=== PATIENT | female | born 1950 | race African-American/Black ===

== ENCOUNTER 2016-07-20 06:05 | Inpatient (IN) ==
--- NOTE | 2016-07-20 06:44 | Emergency Department Note ---
Tj Spangler Hilary, am scribing for, and in the presence of, Scott Whitt MD 06: 39. Peri Spangler James D, MD, personally performed the services described in this documentation, ascribed by Naa Spencer in my presence, and it is both accurate and complete [id number] . Arrival - Arrival Chief Complaint: Shortness of Breath ED Nursing Triage Note: Pt arrives via ems stretcher from [facility] for further eval of shortness of breath. Pt was in resp distress per report from [facility] and was found to be hypertensive. Pt at time of triage is on 15L/NRB and states that she is feeling better. Denies any fever or pain at time of triage. Pt is a Dialysis pt and is scheduled for today. Mode of Arrival: Stretcher Limitations: No Limitations Source: Patient, RN Notes Reviewed Time Seen by Provider: 07/20/16 06:19 - History of Present Illness HPI Narrative: Pt is a 65 y/o black female brought into the ED via EMS from [facility] with c/o SOB. Pt was in respiratory distress per report from [facility] and was found to be hypertensive. Pt at the time of triage is on 15L/NRB. She confirms cough, spitting and SOB that worsens when she lies down but she denies chest pain or fever. Pt has a PMHx of CHF, HTN, NIDDM, GI Bleed, Renal Failure and Dialysis which she is scheduled for today. No other complaints or problems stated in the ED. Allergies/Adverse Reactions: Allergies Allergy/AdvReac Type Severity Reaction Status Date / Time ASHER Inhibitors Allergy Unknown/Unable Verified 07/23/15 20:00 to obtain aspirin Allergy Unknown/Unable Verified 07/23/15 20:00 to obtain ibuprofen Allergy Unknown/Unable Verified 07/23/15 20:00 to obtain IV DYE Allergy Severe ANAPHYLAXIS Uncoded 06/30/16 10:50 Home Medications: Home Medications Medication Instructions Recorded Confirmed Type Famotidine 20 mg PO BID 07/23/15 07/20/16 History hydrALAZINE TAB [Apresoline Tab] 50 mg PO BID 07/23/15 07/20/16 History Atorvastatin [Lipitor] 10 mg PO DAILY #90 tablet 09/30/15 07/20/16 Rx Carvedilol [Coreg] 12.5 mg PO BID #180 tablet NS 09/30/15 07/20/16 Rx Pantoprazole Tab [Protonix Tab] 40 mg PO DAILY #90 tablet NS 09/30/15 07/20/16 Rx Calcium Acetate 667 mg PO DIRECTED 06/30/16 07/20/16 History Cinacalcet HCl [Sensipar] 60 mg PO DAILY 06/30/16 07/20/16 History amLODIPine [Norvasc] 2.5 mg PO DIRECTED 06/30/16 07/20/16 History Review of System - Review of System 12 point system: reviewed and no additional remarkable complaints except as stated - Review of System Constitutional: Absent: fever Respiratory: Present: cough, respiratory distress (SOB) Gastrointestinal: Absent: nausea, vomiting Medical,Surgical,& Family Hx - Medical History Cardio: History of: CHF (diagnosed on admisssion), Hypertension Neurology: No history of: Brain Aneurysm, Cerebral Hemorrhage, Cerebrovascular Accident , Cerebral Palsy, Dementia, Migraine, Multiple Sclerosis, Parkinson's Disease, Peripheral Neuropathy, Seizures, TIA, Vertigo, Neurologocal Cancer HEENT: History of: Eye Problem (GLASS), HEENT Problems (chronic sinuse issues) Endocrine: History of: Diabetes Mellitus (NIDDM) Respiratory: No history of: Respiratory Problems Renal: History of: Dialysis (TUNNEL CATHETER RIGHT UPPER CHEST AV FISTULA LEFT ARM), Renal Failure Gastrointestinal: History of: GERD, Gastrointestinal Bleed (diagnosed on admisssion) Musculoskeletal: History of: Musculoskeletal Problems (ARTHRITIS) Hematology: History of: Anemia - Surgical History Cardiac Surgeries: Patient Denies: Cardiac Surgery Thoracic Surgeries: Patient denies;: Organ Transplant Neurologic Surgeries: Patient denies: Brain Aneurysm, Cerebral Hemorrhage, Neurologic Surgery Abdominal Surgeries: Surgical HX of: Colonoscopy, EGD Orthopedic Surgeries: Surgical HX of;: Orthopedic Surgery (right shoulder surgery 2012 rotary cuff with pins and screws) - Family History Family History: Reports;: Family Cancer (mother), Family Diabetes (brother), Family Heart Disease (sister dies of CHF), Family Hypertension, Family Stroke ( 2 brother) - Social History Smoking Status: Current every day smoker Frequency of Alcohol Use: None Type of Drug Use: None Exam Physical Examination: GENERAL: This is a well-nourished, well-developed in no apparent distress. VITAL SIGNS: Temperature: 98.4 Pulse: 112 Respiratory: 22 Blood Pressure: 170 /97 O2Sat: 97 HEENT: Head is normocephalic and atraumatic. Pupils are equally round and reactive to light. Extraocular movement are intact. Oropharynx is benign with moist mucous membranes. NECK: Neck is soft and supple without tenderness. There are no masses. There is no lymphadenopathy. LUNGS:Course breath sounds bilaterally. Chest rises symmetrically. There is minimal chest wall tenderness. CV: Heart is regular rate and rhythm without murmurs, rubs, or gallops. ABDOMEN: Abdomen is soft, non-tender to palpation. There are no abnormal masses palpated. There is no organomegaly. Bowel sounds are present and active. SKIN: Skin is warm and dry. No rash. EXTREMITIES: Patient has full range of motion without tenderness. There is no pedal edema. NEUROLOGIC: Awake, alert, and oriented x4. Cranial nerves II through XII are grossly intact. There are no motorsensory deficits. PSYCHIATRIC: Normal affect. Normal mood. Vital Signs: Vital Signs Temperature 98.4 F 07/20/16 06:05 Pulse Rate 106 H 07/20/16 06:28 Respiratory Rate 22 07/20/16 06:28 Blood Pressure 167/88 07/20/16 06:28 O2 Sat by Pulse Oximetry 93 L 07/20/16 06:28 Course - Consultations Consultation #1: Discussed with Dr. Kang. Time: 06:46 Consultation #2: Discussed with Dr. Alvarez. Patient will be admitted to their service Time: 06:46 Results - Labs Lab Results: I have reviewed the patients labs Labs: Lab performed at [facility] and reviewed by me Chemistry: Sodium 136, potassium 3.3, chloride 94, CO2 26, BUN 21, creatinine 6.4, glucose 157, BNP 42,506 Troponin 0.029 CBC: WBCs 14,200, hemoglobin 10.3, hematocrit 31.4, platelet count 317,000 - Diagnostic Findings Procedure: Chest x-ray: image reviewed by me Disposition Clinical Impression: Congestive heart failure, End stage renal disease on dialysis
--- NOTE | 2016-07-20 08:02 | XRay Report ---
Exam: XR chest 1V Date: 07/20/2016 6:34 AM Comparison: 07/20/2016 Indication: CHF Technique:[Portable AP sitting chest] Findings: Stable cardiomegaly and right IJ venous dialysis catheter. Persistent extensive parenchymal pathology in the lungs with small pleural effusions. Post operative findings in the left arm/breast with prior right shoulder replacement. Persistent prominent vasculature/stephen. Impression: Cardiomegaly with moderate pulmonary edema. The findings are more pronounced in the right lung where it is difficult to exclude superimposed pneumonia. Additional small indeterminate densities are noted and follow-up chest x-ray is recommended. PROCEDURE INTERPRETED AT [facility] DEPARTMENT OF RADIOLOGY Final Report Signed by: Dr. Shana Medellin
[2016-07-20] MEDS ORDERED: ACETAMINOPHEN 325 MG TABLET PO PRN (08:16)
[2016-07-20] MEDS ORDERED: guaiFENesin/DM ER 600-30 MG TABLET PO PRN (08:16)
[2016-07-20] MEDS ORDERED: DOCUSATE SODIUM 100 MG CAPSULE PO PRN (08:16)
[2016-07-20] MEDS ORDERED: NICOTINE 21 MG/24 HR PATCH TRANSDERM PRN (08:16)
[2016-07-20] MEDS ORDERED: diphenhydrAMINE CAP 25 MG CAPSULE PO PRN (08:16)
[2016-07-20] MEDS ORDERED: MORPHINE 2 MG/1 ML SYRINGE IV PRN (08:16)
--- NOTE | 2016-07-20 08:44 | Hospitalist History & Physical ---
Assessment and Plan - Time spent with patient Time spent with patient: Greater than 30 minutes (1) Hypertension Status: Acute Assessment and plan: 65-year-old -Beninese female with history of hypertension and end-stage renal disease on HD admitted by hospitalist service with shortness of breath. Patient is having sinus tachycardia with an abnormal EKG, troponins are pending. She is satting at 93% on 15 L facemask. Chest x-ray showing pulmonary edema versus pneumonia with crackles noted bilaterally. Patient is being admitted to CCU for further evaluation. Dr. Weiss has been consulted for dialysis which she should have today. We will also get Dr. Buchanan involved for the removal of right chest HD catheter. Dr. Hinkle has seen and examined patient and further recommendations to follow. Current Visit: Yes (2) Shortness of breath Status: Acute Current Visit: Yes (3) Pulmonary edema Status: Acute Current Visit: Yes (4) Congestive heart failure Status: Acute Current Visit: No (5) ESRD (end stage renal disease) on dialysis Problem details: No acute indication for HD at this time. Status: Acute Current Visit: No History of Present Illness Chief complaint: Shortness of breath History of present illness: Ms. Castellon is a 65 year old female with history of hypertension end-stage renal disease on hemodialysis presenting to the ED with acute shortness of breath. Patient states that started last night when she got up to go to the bathroom she just could not catch her breath. She denies headache, constipation , lower extremity edema, or chest pain. She did state she had some nausea with no vomiting prior to her ambulance arriving. She last dialyzed on Wednesday and Dr. Weiss is her store sales consultant. She dialyzes using a left arm fistula but she also has an old HD catheter in her right chest wall. Patient smokes 1 pack of cigarettes every [address] Buchanan wanted to get a heart doctor to look at her before he pulled the catheter. Right now she is on 15 L satting at 93% with conversational dyspnea. Patient's EKG is showing sinus tachycardia with possible left atrial enlargement, ST deviation and moderate T- wave abnormality, consider lateral ischemia. Troponin is pending. After discussion with the ED physician Dr. Whitt and Dr. Hinkle the attending hospitalist, it was agreed patient will be admitted for further evaluation. Home Medications Medication Instructions Recorded Confirmed Type Famotidine 20 mg PO BID 07/23/15 07/20/16 History hydrALAZINE TAB [Apresoline Tab] 50 mg PO BID 07/23/15 07/20/16 History Atorvastatin [Lipitor] 10 mg PO DAILY #90 tablet 09/30/15 07/20/16 Rx Carvedilol [Coreg] 12.5 mg PO BID #180 tablet NS 09/30/15 07/20/16 Rx Pantoprazole Tab [Protonix Tab] 40 mg PO DAILY #90 tablet NS 09/30/15 07/20/16 Rx Calcium Acetate 667 mg PO DIRECTED 06/30/16 07/20/16 History Cinacalcet HCl [Sensipar] 60 mg PO DAILY 06/30/16 07/20/16 History amLODIPine [Norvasc] 2.5 mg PO DIRECTED 06/30/16 07/20/16 History Allergies Allergy/AdvReac Type Severity Reaction Status Date / Time ASHER Inhibitors Allergy Unknown/Unable Verified 07/23/15 20:00 to obtain aspirin Allergy Unknown/Unable Verified 07/23/15 20:00 to obtain ibuprofen Allergy Unknown/Unable Verified 07/23/15 20:00 to obtain IV DYE Allergy Severe ANAPHYLAXIS Uncoded 06/30/16 10:50 Medical,Surgical,& Family Hx - Medical History Cardio: History of: CHF (diagnosed on admisssion), Hypertension Neurology: No history of: Brain Aneurysm, Cerebral Hemorrhage, Cerebrovascular Accident , Cerebral Palsy, Dementia, Migraine, Multiple Sclerosis, Parkinson's Disease, Peripheral Neuropathy, Seizures, TIA, Vertigo, Neurologocal Cancer HEENT: History of: Eye Problem (GLASS), HEENT Problems (chronic sinuse issues) Endocrine: History of: Diabetes Mellitus (NIDDM) Respiratory: No history of: Respiratory Problems Renal: History of: Dialysis (TUNNEL CATHETER RIGHT UPPER CHEST AV FISTULA LEFT ARM), Renal Failure Gastrointestinal: History of: GERD, Gastrointestinal Bleed (diagnosed on admisssion) Musculoskeletal: History of: Musculoskeletal Problems (ARTHRITIS) Hematology: History of: Anemia - Surgical History Cardiac Surgeries: Patient Denies: Cardiac Surgery Thoracic Surgeries: Patient denies;: Organ Transplant Neurologic Surgeries: Patient denies: Brain Aneurysm, Cerebral Hemorrhage, Neurologic Surgery Abdominal Surgeries: Surgical HX of: Colonoscopy, EGD Orthopedic Surgeries: Surgical HX of;: Orthopedic Surgery (right shoulder surgery 2012 rotary cuff with pins and screws) - Family History Family History: Reports;: Family Cancer (mother), Family Diabetes (brother), Family Heart Disease (sister dies of CHF), Family Hypertension, Family Stroke ( 2 brother) - Social History Smoking Status: Current every day smoker Frequency of Alcohol Use: Rarely Type of Drug Use: None Lives With:: Alone Functional capacity: independent ambulation Review of systems: A complete 10 system review of systems was obtained and pertinent positives and negatives per HPI Exam - Constitutional Exam: Constitutional System: Mild distress. No tremulousness. Head: Normocephalic, atraumatic. Ears, Nose and Throat System: No evidence of Otitis or Mastoiditis. No epistaxis or discharge Eyes System: Pupils equal, round, and reactive. Extraocular muscles intact. Neck: Supple, without adenopathy, No jugular venous distention. No thyromegaly, neck mass, or prior surgery apparent. Respiratory System: Chest crackles to auscultation. Cardiovascular System: Heart with tachycardia rate and rhythm. No murmur. GI System: Abdomen soft, nontender. Normo active bowel sounds present. Musculoskeletal System: limbs with no pedal edema. Full distal pulses. Neurological System: No discernable sensory deficit. No aphasia Psychiatric System: Conversation is rational Results - Labs Lab Results: I have reviewed the past 24 hour labs - Impressions EKG was sinus tachycardia, possible left atrial enlargement, ST deviation and moderate T-wave abnormality, consider lateral ischemia - Diagnostic Findings Procedure: Chest x-ray: report reviewed by me (Cardiomegaly with moderate pulmonary edema. More pronounced in the right lung was difficult to exclude superimposed pneumonia additional small indeterminate densities are noted in follow-up chest x-ray recommended)
[2016-07-20] MEDS ORDERED: SODIUM CHLORIDE 0.45% 1,000 ML IV SCH (08:46)
[2016-07-20] MEDS ORDERED: ONDANSETRON 4 MG/2 ML VIAL IV PRN (08:46)
[2016-07-20] MEDS ORDERED: ALBUTEROL 2.5 MG/3 ML NEB RESP TX PRN (08:46)
--- NOTE | 2016-07-20 08:46 | EKG Report ---
Stationary ECG Study [facility] ER Test Date: 07/20/2016 6:14:31 AM Pat Name: ROSEMARIE SPARKS Department: Room: 112 Gender: F Emergency Medicine Medical Director: GE : 1950 Requested by: Scott Zelaya Order Number: [id number] Reading MD: LISANDRO ORTIZ Intervals Daniels Rate: 110 P: 69 MS: 147 QRS: 71 QRSD: 82 T: 13 QT: 379 QTc: 444 Interpretive Statements SINUS TACHYCARDIA POSSIBLE LEFT ATRIAL ENLARGEMENT ST DEVIATION AND MODERATE T-WAVE ABNORMALITY Electronically Signed On 07-20-16 16:58:19 CDT by LISANDRO ORTIZ [email or web address]
[2016-07-20] MEDS ORDERED: PANTOPRAZOLE 40 MG TABLET PO SCH ×2 (09:00)
[2016-07-20] MEDS ORDERED: ATORVASTATIN 10 MG TABLET PO SCH (09:00)
[2016-07-20] MEDS ORDERED: ENOXAPARIN 30 MG/0.3 ML SYRINGE SUBCUT SCH (09:00)
[2016-07-20 10:41] LABS: CKMB % 4.3 %
[2016-07-20 10:44] LABS: Troponin I Only 2.01 NG/ML (0.00-0.045)
[2016-07-20] MEDS: CINACALCET 30 MG TABLET PO SCH (11:45)
[2016-07-20] MEDS: FAMOTIDINE 20 MG TABLET PO SCH ×2 (11:46→20:28)
[2016-07-20] MEDS: PANTOPRAZOLE 40 MG TABLET PO SCH (11:46)
[2016-07-20] MEDS: CARVEDILOL 12.5 MG TABLET PO SCH ×2 (11:47→20:28)
--- NOTE | 2016-07-20 12:14 | General Surgery Consult Note ---
Assessment and Plan (1) ESRD (end stage renal disease) on dialysis Problem details: No acute indication for HD at this time. Status: Acute Assessment and plan: Continue dialysis through left arm AV fistula. Will probably have to remove dialysis catheter at bedside under local given her current medical issues. Current Visit: No History of Present Illness Chief complaint: Consult to remove dialysis catheter History of present illness: Ms. Castellon is a 65 year old female admitted with shortness of breath and cardiac issues. She is dialyzing through her left arm AV fistula. There is been no problems with access. She has previously been seen for catheter removal but this was postponed until she was evaluated by cardiology. Home Medications Medication Instructions Recorded Confirmed Type Famotidine 20 mg PO BID 07/23/15 07/20/16 History hydrALAZINE TAB [Apresoline Tab] 50 mg PO BID 07/23/15 07/20/16 History Atorvastatin [Lipitor] 10 mg PO DAILY #90 tablet 09/30/15 07/20/16 Rx Carvedilol [Coreg] 12.5 mg PO BID #180 tablet NS 09/30/15 07/20/16 Rx Pantoprazole Tab [Protonix Tab] 40 mg PO DAILY #90 tablet NS 09/30/15 07/20/16 Rx Calcium Acetate 667 mg PO DIRECTED 06/30/16 07/20/16 History Cinacalcet HCl [Sensipar] 60 mg PO DAILY 06/30/16 07/20/16 History amLODIPine [Norvasc] 2.5 mg PO DIRECTED 06/30/16 07/20/16 History Allergies Allergy/AdvReac Type Severity Reaction Status Date / Time ASHER Inhibitors Allergy Unknown/Unable Verified 07/23/15 20:00 to obtain aspirin Allergy Unknown/Unable Verified 07/23/15 20:00 to obtain ibuprofen Allergy Unknown/Unable Verified 07/23/15 20:00 to obtain IV DYE Allergy Severe ANAPHYLAXIS Uncoded 06/30/16 10:50 Medical,Surgical,& Family Hx - Medical History Cardio: History of: CHF (diagnosed on admisssion), Hypertension Neurology: No history of: Brain Aneurysm, Cerebral Hemorrhage, Cerebrovascular Accident , Cerebral Palsy, Dementia, Migraine, Multiple Sclerosis, Parkinson's Disease, Peripheral Neuropathy, Seizures, TIA, Vertigo, Neurologocal Cancer HEENT: History of: Eye Problem (GLASS), HEENT Problems (chronic sinuse issues) Endocrine: History of: Diabetes Mellitus (NIDDM) Respiratory: No history of: Respiratory Problems Renal: History of: Dialysis (TUNNEL CATHETER RIGHT UPPER CHEST AV FISTULA LEFT ARM), Renal Failure Gastrointestinal: History of: GERD, Gastrointestinal Bleed (diagnosed on admisssion) Musculoskeletal: History of: Musculoskeletal Problems (ARTHRITIS) Hematology: History of: Anemia - Surgical History Cardiac Surgeries: Patient Denies: Cardiac Surgery Thoracic Surgeries: Patient denies;: Organ Transplant Neurologic Surgeries: Patient denies: Brain Aneurysm, Cerebral Hemorrhage, Neurologic Surgery Abdominal Surgeries: Surgical HX of: Colonoscopy, EGD Orthopedic Surgeries: Surgical HX of;: Orthopedic Surgery (right shoulder surgery 2012 rotary cuff with pins and screws) - Family History Family History: Reports;: Family Cancer (mother), Family Diabetes (brother), Family Heart Disease (sister dies of CHF), Family Hypertension, Family Stroke ( 2 brother) - Social History Smoking Status: Current every day smoker Frequency of Alcohol Use: Rarely Type of Drug Use: None 12 point system: reviewed and no additional remarkable complaints except as stated Exam - Constitutional Vitals: Period Temp Pulse Resp BP Sys/Reynolds Pulse Ox Last 24 Hr 96.9 F-97.2 F 111-143 20-38 149-218/90-116 88-97 General appearance: no acute distress - Head Head exam: Present: normocephalic - Neck Neck exam: Present: normal inspection - Cardiovascular Cardiovascular exam: Present: RRR - Extremities Exam Extremities exam: Present: other (Left arm AV fistula with good thrill) - Back Exam Back exam: Present: normal inspection - Neurological Exam Neurological exam: Present: alert, oriented X3 Speech: Present: normal - Skin Skin exam: Present: normal color
[2016-07-20] MEDS ORDERED: LIDOCAINE/PRILOCAINE CREAM 5 GM TUBE TOP ONE (12:54)
--- NOTE | 2016-07-20 13:02 | Nephrology Consult Note ---
History of Present Illness Chief complaint: Shortness of breath in a patient on dialysis History of present illness: Ms. Castellon is a 65 year old female who dialyzes on a regular basis in the local area on a Wednesday schedule. The patient presented to her local hospital with complaints of shortness of breath. She states that shortness of breath started about 2 nights prior to her admission. The patient denies noncompliance with her diet. The patient has had a previous episode similar to this about a year ago. The patient has an echocardiogram from a year ago that showed mild to moderate aortic insufficiency as well as an elevated pulmonary artery pressure of around 53 mmHg and some mild tricuspid regurgitation. Patient denies any chest pain. She does think she has been having some chills she denies any cough. ROS: Head - denies headaches ENT - denies sore throat Lymphatics - denies lymphadenopathy Hematology - denies bleeding problems Heart - denies chest pain Lungs -positive shortness of breath Abdomen - denies abdominal pain Musculoskeletal - denies arthritis Skin - denies rash Neurology - denies stroke General - denies fever PE: General: in moderate respiratory distress having to sit up straight to breathe Eyes: Pupils are round and reactive, conjunctivae are clear ENT: Nose is clear, O/P is benign Neck: Supple, no thyromegaly Lymphatics: No cervical, supraclavicular or axillary adenopathy Heart: Regular rate and rhythm, no edema Lungs: Reveal some rales and rhonchi heard worse on the right than the left, chest expansion symmetric Abdomen: Soft, normoactive bowel sounds, no hepatomegaly Musculoskeletal: No joint erythema or effusions or joint asymmetry Skin: Normal turgor, normal hydration, no rash Neuro/Psych: Alert and cooperative with fair insight Home Medications Medication Instructions Recorded Confirmed Type Famotidine 20 mg PO BID 07/23/15 07/20/16 History hydrALAZINE TAB [Apresoline Tab] 50 mg PO BID 07/23/15 07/20/16 History Atorvastatin [Lipitor] 10 mg PO DAILY #90 tablet 09/30/15 07/20/16 Rx Carvedilol [Coreg] 12.5 mg PO BID #180 tablet NS 09/30/15 07/20/16 Rx Pantoprazole Tab [Protonix Tab] 40 mg PO DAILY #90 tablet NS 09/30/15 07/20/16 Rx Calcium Acetate 667 mg PO DIRECTED 06/30/16 07/20/16 History Cinacalcet HCl [Sensipar] 60 mg PO DAILY 06/30/16 07/20/16 History amLODIPine [Norvasc] 2.5 mg PO DIRECTED 06/30/16 07/20/16 History Allergies Allergy/AdvReac Type Severity Reaction Status Date / Time ASHER Inhibitors Allergy Unknown/Unable Verified 07/23/15 20:00 to obtain aspirin Allergy Unknown/Unable Verified 07/23/15 20:00 to obtain ibuprofen Allergy Unknown/Unable Verified 07/23/15 20:00 to obtain IV DYE Allergy Severe ANAPHYLAXIS Uncoded 06/30/16 10:50 Medical,Surgical,& Family Hx - Medical History Cardio: History of: CHF (diagnosed on admisssion), Hypertension Neurology: No history of: Brain Aneurysm, Cerebral Hemorrhage, Cerebrovascular Accident , Cerebral Palsy, Dementia, Migraine, Multiple Sclerosis, Parkinson's Disease, Peripheral Neuropathy, Seizures, TIA, Vertigo, Neurologocal Cancer HEENT: History of: Eye Problem (GLASS), HEENT Problems (chronic sinuse issues) Endocrine: History of: Diabetes Mellitus (NIDDM) Respiratory: No history of: Respiratory Problems Renal: History of: Dialysis (TUNNEL CATHETER RIGHT UPPER CHEST AV FISTULA LEFT ARM), Renal Failure Gastrointestinal: History of: GERD, Gastrointestinal Bleed (diagnosed on admisssion) Musculoskeletal: History of: Musculoskeletal Problems (ARTHRITIS) Hematology: History of: Anemia - Surgical History Cardiac Surgeries: Patient Denies: Cardiac Surgery Thoracic Surgeries: Patient denies;: Organ Transplant Neurologic Surgeries: Patient denies: Brain Aneurysm, Cerebral Hemorrhage, Neurologic Surgery Abdominal Surgeries: Surgical HX of: Colonoscopy, EGD Orthopedic Surgeries: Surgical HX of;: Orthopedic Surgery (right shoulder surgery 2012 rotary cuff with pins and screws) - Family History Family History: Reports;: Family Cancer (mother), Family Diabetes (brother), Family Heart Disease (sister dies of CHF), Family Hypertension, Family Stroke ( 2 brother) - Social History Smoking Status: Current every day smoker Frequency of Alcohol Use: Rarely Type of Drug Use: None Exam - Vital Signs Vital signs: Period Temp Pulse Resp BP Sys/Reynolds Pulse Ox Last 24 Hr 96.9 F-97.2 F 111-143 20-38 149-218/90-116 88-97 Assessment and Plan (1) Congestive heart failure Status: Acute Assessment and plan: This patient has a history of mild to moderate aortic insufficiency as well as elevated pulmonary artery pressures and mild tricuspid regurgitation. Her ejection fraction is around 55% a year ago. Her troponin I is elevated and agree with the following a repeat level of this. It may be worth repeating her echocardiogram as well. Current Visit: Yes (2) End stage renal disease on dialysis Status: Acute Assessment and plan: We will plan on dialyzing the patient today with vigorous ultrafiltration as tolerated. Current Visit: Yes (3) Hypertension Status: Acute Assessment and plan: This should improve with dialysis and fluid removal Current Visit: Yes (4) Pulmonary edema Status: Acute Current Visit: Yes (5) Shortness of breath Status: Acute Current Visit: Yes (6) Secondary hyperparathyroidism Status: Acute Assessment and plan: We will continue her Sensipar and calcium based phosphate binder Current Visit: Yes
[2016-07-20] MEDS: ONDANSETRON 4 MG/2 ML VIAL IV PRN ×2 (13:29→20:32)
[2016-07-20] MEDS ORDERED: amLODIPine 2.5 MG TABLET PO SCH (15:30)
--- NOTE | 2016-07-20 16:36 | ECHO Report ---
oTma Castellon Exam Date: 07/20/2016 10:32 Referring Physician: Technologist: Amanda Bell Age: 65 Ht (in): 64 Wt (lb): 154 Gender: F Exam Location: [facility] Echo Indications: CHF, ESRD, HTN, SOB, Pul.edema BP: 149 / 110 HR: 130 Rhythm: Tachycardia Technical Quality: Good IMPRESSIONS Mild concentric left ventricular hypertrophy with diastolic dysfunction. Diffuse left ventricular hypokinesis. Left ventricular ejection fraction is estimated at 20-25 %. Normal right ventricular size. The right atrium is mildly enlarged. The left atrium is mildly enlarged. Mild mitral valve sclerosis. Mild-moderate mitral valve regurgitation. Aortic valve sclerosis without stenosis. Mild aortic valve regurgitation. Morphologically normal tricuspid valve. Severe tricuspid valve regurgitation. Tricuspid regurgitation velocities suggest a PAP of 59.9 mmHg + RAP. Pulmonic valve not well visualized. No pericardial effusion. Normal size aortic root and proximal ascending aorta. MEASUREMENTS (Male / Female) Normal Values 2D ECHO LV Diastolic Diameter PLAX 4.3 cm 4.2 - 5.9 / 3.9 - 5.3 cm LV Systolic Diameter PLAX 4.0 cm LV Fractional Shortening PLAX 6.7 % IVS Diastolic Thickness 1.1 cm 0.6 - 1.0 / 0.6 - 0.9 cm LVPW Diastolic Thickness 1.1 cm 0.6 - 1.0 / 0.6 - 0.9 cm RV Internal Dim ED PLAX 2.7 cm Aortic Root Diameter 2.6 cm LA Systolic Diameter LX 3.7 cm 3.0 - 4.0 / 2.7 - 3.8 cm DOPPLER TR Peak Velocity 387.0 cm/s TR Peak Gradient 59.9 mmHg FINDINGS Left Ventricle Mild concentric left ventricular hypertrophy with diastolic dysfunction. Diffuse left ventricular hypokinesis. Left ventricular ejection fraction is estimated at 20-25 %. Right Ventricle Normal right ventricular size. Right Atrium The right atrium is mildly enlarged. Left Atrium The left atrium is mildly enlarged. Mitral Valve Mild mitral valve sclerosis. Mild-moderate mitral valve regurgitation. Aortic Valve Aortic valve sclerosis without stenosis. Mild aortic valve regurgitation. Tricuspid Valve Morphologically normal tricuspid valve. Severe tricuspid valve regurgitation. Tricuspid regurgitation velocities suggest a PAP of 59.9 mmHg + RAP. Pulmonic Valve Pulmonic valve not well visualized. Pericardium No pericardial effusion. Aorta Normal size aortic root and proximal ascending aorta. Mauricio Segura MD (Electronically Signed) Final Date: 20 Jul 2016 16:35
[2016-07-20] MEDS ORDERED: ENOXAPARIN 60 MG/0.6 ML SYRINGE SUBCUT SCH (18:00)
[2016-07-20] MEDS: CALCIUM ACETATE 667 MG CAPSULE PO SCH (18:13)
[2016-07-21 01:16] LABS: Basophils % 0.3 % (0.0-0.8); Hematocrit 29.7 VOL% (35.7-47.0); Immature Granulocytes % 0.9 %; Lymphocytes # 1.2 10*3/uL (1.4-4.0); Lymphocytes % 11.3 % (21.3-54.2); Mean Corpuscular HGB Conc 33.7 GM/DL (32-36); Mean Corpuscular Hemoglobin 24 PG (27-34); Mean Corpuscular Volume 72.1 FL (87-102); Mean Platelet Volume 10.3 FL (9.6-12.0); Monocytes # 1.3 10*3/uL (0.11-0.8); Monocytes % 11.8 % (1.7-12.7); Neutrophils # 8.3 10*3/uL (1.4-7.4); Neutrophils % 75.7 % (38.7-73.9); Platelet Count 283 T/CUMM (130-400); Red Blood Count 4.12 MC/CUMM (3.8-5.5); Red Cell Distribution Width 18.6 % (9.3-17.3); White Blood Count 10.9 T/CUMM (4-12)
[2016-07-21 01:36] LABS: Calcium 7.6 MG/DL (8.5-10.1); Osmolality,Calculated 265.5 MOS/KG (273-304); Potassium 3.6 MMOL/L (3.5-5.1)
--- NOTE | 2016-07-21 06:56 | XRay Report ---
Exam: XR chest 1V portable Date: 07/21/2016 4:00 AM Indication: CHF Comparison: 07/20/2016 Technical: AP portable Findings: A right-sided dialysis catheter is present with the distal tip superior vena cava. Cardiomegaly is present. Improving aeration with decreasing alveolar interstitial edema in the basilar regions with some residual interstitial edema present. Tiny effusion present. A right total shoulder prosthesis is present. No pneumothorax. External cardiac leads oxygen tubing are present. Small granuloma right lung. Platelike atelectatic change left mid chest. Impression: 1. Cardiomegaly with stable appearance of the dialysis catheter 2. Improving interstitial alveolar edema bilaterally with incomplete resolution of acute pulmonary edema CHF changes 3. Right total shoulder prosthesis 4. Granuloma changes right lung PROCEDURE INTERPRETED AT [facility] DEPARTMENT OF RADIOLOGY Final Report Signed by: Dr. Jose Guadalupe Castle
[2016-07-21] MEDS: CINACALCET 30 MG TABLET PO SCH ×2 (08:06→09:13)
[2016-07-21] MEDS: CALCIUM ACETATE 667 MG CAPSULE PO SCH ×4 (08:06→16:58)
--- NOTE | 2016-07-21 08:13 | Cardiology Consult Note ---
<Yolanda Silverman E - Last Filed: 07/21/16 07:47> Assessment and Plan - Time spent with patient Time spent with patient: Greater than 30 minutes Time spent discussing smoking cessation with patient: 3 to 10 minutes (1) ACS (acute coronary syndrome) Status: Acute Assessment and plan: SEE PLAN OF CARE LISTED BELOW Current Visit: Yes (2) Hypertension Status: Chronic Assessment and plan: SEE PLAN OF CARE LISTED BELOW Current Visit: Yes (3) CHF (congestive heart failure), NYHA class III Status: Acute Assessment and plan: SEE PLAN OF CARE LISTED BELOW Current Visit: Yes Qualifiers: Congestive heart failure type: systolic Congestive heart failure chronicity : acute Qualified Code(s): I50.21 - Acute systolic (congestive) heart failure (4) Allergy to IVP dye Status: Chronic Assessment and plan: SEE PLAN OF CARE LISTED BELOW Current Visit: Yes (5) Cardiomyopathy Status: Acute Assessment and plan: SEE PLAN OF CARE LISTED BELOW Current Visit: Yes (6) Tobacco abuse Status: Chronic Assessment and plan: SEE PLAN OF CARE LISTED BELOW Current Visit: Yes (7) CKD (chronic kidney disease) stage 4, GFR 15-29 ml/min Status: Chronic Assessment and plan: SEE PLAN OF CARE LISTED BELOW Current Visit: No History of Present Illness - Data of Consult Patient: new to practice Consult date: 07/21/16 Requesting Physician: Stephanie Hinkle - Consult Narrative Reason for consult: SOB, elevated troponin 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 Ms. Castellon, 65BF, has never been seen Cardiology. She was scheduled to see Dr. Bruno end of July 2016 for preop clearance. Risk factors include: Hypertension, suspected dyslipidemia, sedentary lifestyle, tobaccoism and end- stage renal disease. Past medical history includes end-stage renal disease requiring hemodialysis, anemia. Patient was admitted July 20, 2016 with shortness of breath, tachycardia and an abnormal EKG. Chest x-ray revealed pulmonary edema versus pneumonia. Patient reports she has chronic shortness of breath which worsened the day of admission. She found that walking room to room required wrist with minimal exertion. She has been diuresis overnight, given supplemental oxygen and she is breathing better this morning. Denies chest pain, heaviness or tightness. Troponins have peaked at 4.53 in the setting of a creatinine of 4.5. EKG reveals abnormalities located in the lateral leads. Patient underwent echo which reveals EF 20-25%, mild to moderate MR, PAP 59.9 + RAP. Patient's prior echocardiogram, July 2015, reveals EF of 55%-60%. IVP DYE ALLERGY. ASSESSMENT/PLAN: 1. ACS - troponin is trending down at this point. I discussed with Dr. Segura possibility of cardiac catheterization. She still somewhat orthopneic and we will continue with diuresis. She underwent dialysis yesterday and 4000 ml was withdrawn. Also, this will give us an opportunity to treat her IVP dye allergy for 24 hours prior to proceeding. I will keep her n.p.o. after midnight tonight and schedule her for cardiac catheterization 0730. Will add nitroglycerin if her blood pressure will allow for such. Also, and lipid-lowering agent. Will coordinate with Dr. Tee. Patient may benefit from dialysis again today prior to proceeding with cath tomorrow which may assist with her orthopnea. 2. ACUTE CHF - acute CHF secondary to severely reduced LVEF (20%), [place] Heart Association Classification III. 3. CARDIOMYOPATHY - newly diagnosed cardiomyopathy. Will require cardiac catheterization for further delineation to etiology and treatment. 4. HYPERTENSION - adequately controlled. Currently tolerating beta blockade. 5. UNKNOWN LIPID STATUS - lipid profile this morning 6. IV DYE ALLERGY - premedicated according 7. ESRD - HD managed by Dr. Tee. May need HD today as we prepare for LHC in the morning in order to better manage orthopnea. 8. TOBACCO ABUSE - greater than 5 minutes was spent today discussing the merits of tobacco cessation per CC: Stephanie Hinkle MD - Home Medications and Allergies Home Medications: Home Medications Medication Instructions Recorded Confirmed Type Famotidine 20 mg PO BID 07/23/15 07/20/16 History hydrALAZINE TAB [Apresoline Tab] 50 mg PO BID 07/23/15 07/20/16 History Atorvastatin [Lipitor] 10 mg PO DAILY #90 tablet 09/30/15 07/20/16 Rx Carvedilol [Coreg] 12.5 mg PO BID #180 tablet NS 09/30/15 07/20/16 Rx Pantoprazole Tab [Protonix Tab] 40 mg PO DAILY #90 tablet NS 09/30/15 07/20/16 Rx Calcium Acetate 667 mg PO TID W/MEALS 06/30/16 07/20/16 History Cinacalcet HCl [Sensipar] 60 mg PO DAILY 06/30/16 07/20/16 History amLODIPine [Norvasc] 2.5 mg PO DAILY 06/30/16 07/20/16 History Allergies/Adverse Reactions: Allergies Allergy/AdvReac Type Severity Reaction Status Date / Time ASHER Inhibitors Allergy Unknown/Unable Verified 07/23/15 20:00 to obtain aspirin Allergy Unknown/Unable Verified 07/23/15 20:00 to obtain ibuprofen Allergy Unknown/Unable Verified 07/23/15 20:00 to obtain IV DYE Allergy Severe ANAPHYLAXIS Uncoded 06/30/16 10:50 Review of systems: REVIEW OF SYSTEMS: - Constitutional Constitutional: Present: Fatigue. Absent: syncope, anorexia, night sweats - EENT Eyes: Absent: blurry vision, loss of vision, diplopia Ears: Absent: decreased hearing, ear pain, ear discharge - Cardiovascular Cardiovascular: Denies: chest pain with exertion, edema, palpitations. Absent: chest pain with deep breath, claudication - Respiratory Respiratory: Present: WILSON, cough. Absent: wheezing, hemoptysis, change in phlegm color - Gastrointestinal Gastrointestinal: Denies: constipation. Absent: abdominal pain, hematemesis, hematochezia, melena, change in bowel habits, nausea - Genitourinary Genitourinary: Absent: difficulty urinating, dysuria, urinary hesitancy, flank pain - Musculoskeletal Musculoskeletal: Present: back pain Absent: joint swelling, muscle cramps, muscle weakness - Neurological Neurological: Present: normal gait without frequent falls. Absent: dizziness, hemiparesis - Psychiatric Psychiatric: Absent: anxiety, depression, difficulty concentrating - Endocrine Endocrine: Present: fatigue. Absent: cold intolerance, heat intolerance, polyuria, polyphagia, polydipsia - Hematologic/Lymphatic Hematologic/Lymphatic: Present: easy bruising. Absent: easy bleeding -Integumentary Integumentary: Absent: lesions, rashes, skin breakdown Medical,Surgical,& Family Hx - Medical History Cardio: History of: CHF (diagnosed on admisssion), Hypertension No history of: CAD, [place] Neurology: No history of: Brain Aneurysm, Cerebral Hemorrhage, Cerebrovascular Accident , Cerebral Palsy, Dementia, Migraine, Multiple Sclerosis, Parkinson's Disease, Peripheral Neuropathy, Seizures, TIA, Vertigo, Neurologocal Cancer HEENT: History of: Eye Problem (GLASS), HEENT Problems (chronic sinuse issues) Respiratory: No history of: Respiratory Problems Renal: History of: Dialysis (TUNNEL CATHETER RIGHT UPPER CHEST AV FISTULA LEFT ARM), Renal Failure Gastrointestinal: History of: GERD, Gastrointestinal Bleed (diagnosed on admisssion) Musculoskeletal: History of: Musculoskeletal Problems (ARTHRITIS) Hematology: History of: Anemia - Surgical History Cardiac Surgeries: Patient Denies: Cardiac Surgery Thoracic Surgeries: Patient denies;: Organ Transplant Neurologic Surgeries: Patient denies: Brain Aneurysm, Cerebral Hemorrhage, Neurologic Surgery Abdominal Surgeries: Surgical HX of: Colonoscopy, EGD Orthopedic Surgeries: Surgical HX of;: Orthopedic Surgery (right shoulder surgery 2012 rotary cuff with pins and screws) - Family History Family History: Reports;: Family Cancer (mother), Family Diabetes (brother), Family Heart Disease (sister dies of CHF), Family Hypertension, Family Stroke ( 2 brother) - Social History Smoking Status: Current every day smoker Have you smoked in the last 12 months: Yes Time spent discussing smoking cessation with patient: 3 to 10 minutes Frequency of Alcohol Use: Rarely Type of Drug Use: None Physical Examination Vital Signs Temp Pulse Resp BP Pulse Ox 98.4 F 112 H 22 170/97 97 07/20/16 06:05 07/20/16 06:05 07/20/16 06:05 07/20/16 06:05 07/20/16 06:05 General: [Appears well with no apparent distress.] [Pleasant and cooperative. ] [Appears comfortable.] HEENT: [Bilateral arcus noted, normocephalic, atraumatic. Mucous membranes moist. No jaundice noted. Conjunctiva moist and clear, sclerae anicteric] Neck: 4-6 cm JVD to jaw. No thyromegaly or lymphadenopathy noted. No carotid bruit appreciated Cardiac: [Regular rate and rhythm.] [Soft II/ HSM heard best at 5ICS left. Lungs: [Clear to auscultation without accessory muscle use to assist the respiratory pattern.] Using oxygen via nasal cannula. Abdomen: Soft, bowel sounds normoactive. Nontender and nondistended. No abdominal bruit or thrill noted. No masses noted. Musculoskeletal: No fluid collection. Decreased range of motion is noted. Extremities: No clubbing, cyanosis noted. [ No edema noted.] Upper extremity pulses 2+. Lower extremity pulses 2+. Capillary refill less than 3 seconds. Skin: Skin changes noted to bilateral lower extremities. No other unusual lesions or rashes. No skin breakdown appreciated. Neuro: Awake, alert and oriented 3. Moves all extremities well without hemiparesis or paralysis. No essential tremor is appreciated. Result/EKG - Labs CBC & BMP: 07/21/16 01:01 07/21/16 01:01 Lab Results: I have reviewed the past 24 hour labs Labs: Laboratory Results - last 24 hr 07/20/16 07/20/16 07/20/16 09:56 09:56 14:09 WBC RBC Hgb Hct MCV MCH MCHC RDW Plt Count MPV Neut % (Auto) Lymph % (Auto) [place] % (Auto) Eos % (Auto) Baso % (Auto) Neut # (Auto) Lymph # (Auto) [place] # (Auto) Eos # (Auto) Baso # (Auto) Immature Gran % Nucleated RBC % Immature Gran # Nucleated RBCs # Sodium Potassium Chloride Carbon Dioxide Anion Gap BUN Creatinine GFR Calculation BUN/Creatinine Ratio Glucose Calculated Osmolality Calcium Total Creatine Kinase 212 H CK-MB (CK-2) 9.2 H CK and CKMB Interp 4.3 Troponin I 2.010 H 3.970 H D B-Natriuretic Peptide 3804 H 07/20/16 07/21/16 07/21/16 17:56 01:01 01:01 WBC 10.9 RBC 4.12 Hgb 10.0 L Hct 29.7 L MCV 72.1 L MCH 24 L MCHC 33.7 RDW 18.6 H Plt Count 283 MPV 10.3 Neut % (Auto) 75.7 H Lymph % (Auto) 11.3 L [place] % (Auto) 11.8 Eos % (Auto) 0.0 Baso % (Auto) 0.3 Neut # (Auto) 8.3 H Lymph # (Auto) 1.2 L [place] # (Auto) 1.3 H Eos # (Auto) 0.0 Baso # (Auto) 0.0 Immature Gran % 0.9 Nucleated RBC % 0.0 Immature Gran # 0.10 Nucleated RBCs # 0.00 Sodium Potassium Chloride Carbon Dioxide Anion Gap BUN Creatinine GFR Calculation BUN/Creatinine Ratio Glucose Calculated Osmolality Calcium Total Creatine Kinase CK-MB (CK-2) CK and CKMB Interp Troponin I 4.530 H 3.470 H D B-Natriuretic Peptide 07/21/16 01:01 WBC RBC Hgb Hct MCV MCH MCHC RDW Plt Count MPV Neut % (Auto) Lymph % (Auto) [place] % (Auto) Eos % (Auto) Baso % (Auto) Neut # (Auto) Lymph # (Auto) [place] # (Auto) Eos # (Auto) Baso # (Auto) Immature Gran % Nucleated RBC % Immature Gran # Nucleated RBCs # Sodium 132 L Potassium 3.6 Chloride 93 L Carbon Dioxide 24 Anion Gap 18.6 H BUN 18 Creatinine 4.50 H GFR Calculation 11 BUN/Creatinine Ratio 4.00 L Glucose 105 Calculated Osmolality 265.5 L Calcium 7.6 L Total Creatine Kinase CK-MB (CK-2) CK and CKMB Interp Troponin I B-Natriuretic Peptide - Diagnostic Findings Procedure: Chest x-ray: report reviewed by me, Ultrasound: report reviewed by me - EKG EKG results: interpreted by me EKG shows: sinus rhythm (Echo) <Mauricio Segura - Last Filed: 07/21/16 12:31> History of Present Illness - Consult Narrative History of present illness: Ms. Castellon is a 65 year old female she has had worsening LV function with no real change in her EKG and our plan is going to be to pursue cardiac catheterization for her acute coronary syndrome. She is clinically stable and I think given her dye allergy it is appropriate to wait 12-24 hours prior to proceeding. CC: Stephanie Hinkle MD Physical Examination Vital Signs Temp Pulse Resp BP Pulse Ox 98.4 F 112 H 22 170/97 97 07/20/16 06:05 07/20/16 06:05 07/20/16 06:05 07/20/16 06:05 07/20/16 06:05 Result/EKG - Labs CBC & BMP: 07/21/16 01:01 07/21/16 01:01 Labs: Laboratory Results - last 24 hr 07/20/16 07/20/16 07/21/16 14:09 17:56 01:01 WBC RBC Hgb Hct MCV MCH MCHC RDW Plt Count MPV Neut % (Auto) Lymph % (Auto) [place] % (Auto) Eos % (Auto) Baso % (Auto) Neut # (Auto) Lymph # (Auto) [place] # (Auto) Eos # (Auto) Baso # (Auto) Immature Gran % Nucleated RBC % Immature Gran # Nucleated RBCs # INR PT Patient/Control Mix Circ Anticoag PTT Sodium Potassium Chloride Carbon Dioxide Anion Gap BUN Creatinine GFR Calculation BUN/Creatinine Ratio Glucose Calculated Osmolality Calcium Troponin I 3.970 H D 4.530 H 3.470 H D Triglycerides Cholesterol LDL Cholesterol VLDL Cholesterol HDL Cholesterol Heart Disease Risk Ratio 07/21/16 07/21/16 07/21/16 01:01 01:01 08:11 WBC 10.9 RBC 4.12 Hgb 10.0 L Hct 29.7 L MCV 72.1 L MCH 24 L MCHC 33.7 RDW 18.6 H Plt Count 283 MPV 10.3 Neut % (Auto) 75.7 H Lymph % (Auto) 11.3 L [place] % (Auto) 11.8 Eos % (Auto) 0.0 Baso % (Auto) 0.3 Neut # (Auto) 8.3 H Lymph # (Auto) 1.2 L [place] # (Auto) 1.3 H Eos # (Auto) 0.0 Baso # (Auto) 0.0 Immature Gran % 0.9 Nucleated RBC % 0.0 Immature Gran # 0.10 Nucleated RBCs # 0.00 INR 1.1 PT Patient/Control Mix 12.0 Circ Anticoag PTT 39.6 Sodium 132 L Potassium 3.6 Chloride 93 L Carbon Dioxide 24 Anion Gap 18.6 H BUN 18 Creatinine 4.50 H GFR Calculation 11 BUN/Creatinine Ratio 4.00 L Glucose 105 Calculated Osmolality 265.5 L Calcium 7.6 L Troponin I Triglycerides Cholesterol LDL Cholesterol VLDL Cholesterol HDL Cholesterol Heart Disease Risk Ratio 07/21/16 08:11 WBC RBC Hgb Hct MCV MCH MCHC RDW Plt Count MPV Neut % (Auto) Lymph % (Auto) [place] % (Auto) Eos % (Auto) Baso % (Auto) Neut # (Auto) Lymph # (Auto) [place] # (Auto) Eos # (Auto) Baso # (Auto) Immature Gran % Nucleated RBC % Immature Gran # Nucleated RBCs # INR PT Patient/Control Mix Circ Anticoag PTT Sodium Potassium Chloride Carbon Dioxide Anion Gap BUN Creatinine GFR Calculation BUN/Creatinine Ratio Glucose Calculated Osmolality Calcium Troponin I Triglycerides 98 Cholesterol 198 LDL Cholesterol 66.0 VLDL Cholesterol 19.6 HDL Cholesterol 110 H Heart Disease Risk Ratio 1.80
[2016-07-21] MEDS ORDERED: POTASSIUM CHLORIDE RIDER 10 MEQ in PREMIX 1 EACH IV PRN ×2 (08:29→16:18)
[2016-07-21] MEDS ORDERED: MAGNESIUM SULF RIDER 2 GM in PREMIX 1 EACH IV PRN ×2 (08:29→16:18)
[2016-07-21] MEDS ORDERED: DIAZEPAM 5 MG TABLET PO ONE (08:29)
[2016-07-21 08:30] LABS: INR 1.1
[2016-07-21 08:36] LABS: Partial Thromboplastin Time 39.6 SECS (0-40)
[2016-07-21 08:48] LABS: Risk Ratio 1.8; VLDL CHOLESTEROL 19.6 MG/DL
--- NOTE | 2016-07-21 08:50 | EKG Report ---
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
[2016-07-21] MEDS ORDERED: FAMOTIDINE 20 MG TABLET PO SCH (09:00)
--- NOTE | 2016-07-21 09:05 | Hospitalist Progress Note ---
Assessment and Plan (1) Acute respiratory failure Status: Resolved Assessment and plan: 1)acute hypoxic resp failure due to acute systolic heart failure from newly diagnosed cardiomyopathy, and acute coronary syndrome- her hypoxia is improved after dialysis and her CXR and exam are better. Because she has had mild NSTEMI and a dramatic decrease in EF on current echo, cardiology plans cath tomorrow. She will have steroids and benadryl and pepcid today for her IV dye allergy. Her BP is 107 this morning, and her meds have been altered, including removing her NTP. Since she is orthopneic we are hoping she can be dialyzed again today in preparation for cath tomorrow. LDL is 66, HDL 123. counseled to stop smoking. Now on lovenox, lipitor, imdur, coreg. 2)ESRD- HD per Dr Tee. 3)dispo- improved. Transfer to tele today. Current Visit: No (2) End stage renal disease on dialysis Status: Acute Current Visit: Yes (3) Pulmonary edema Status: Acute Current Visit: Yes (4) ACS (acute coronary syndrome) Status: Acute Current Visit: Yes (5) CHF (congestive heart failure), NYHA class III Status: Acute Current Visit: Yes Qualifiers: Congestive heart failure type: systolic Congestive heart failure chronicity : acute Qualified Code(s): I50.21 - Acute systolic (congestive) heart failure (6) Cardiomyopathy Status: Acute Current Visit: Yes (7) Tobacco abuse Status: Chronic Current Visit: Yes Hospitalist: Subjective Interval history: Ms Castellon is feeling so much better this morning. She was changed to 2LNC yesterday after dialysis and has been breathing comfortably, though she remains a little orthopneic. She has had no chest pain. She is eating well. She says this all started quickly in the evening Wednesday after a good day with trips to visit family. Exam - Constitutional Vitals: Period Temp Pulse Resp BP Sys/Reynolds Pulse Ox Last 24 Hr 97.2 F-99.2 F 79-143 16-38 91-215/44-115 88-100 General appearance: normal weight, no acute distress - Head Head exam: Present: normocephalic, atraumatic - Eye Eye exam: Present: EOMI. Absent: scleral icterus - Respiratory Respiratory exam: Present: rales (almost gone, now at bases) - Cardiovascular Cardiovascular exam: Present: regular rate and rhythm - GI/Abdominal GI/Abdominal exam: Present: normal bowel sounds, soft. Absent: tenderness - Extremities Exam Extremities exam: Absent: edema - Neurological Exam Neurological exam: Present: alert, oriented X3 Results - Labs CBC & BMP: 07/21/16 01:01 07/21/16 01:01 Lab Results: I have reviewed the past 24 hour labs
[2016-07-21] MEDS: diphenhydrAMINE CAP 50 MG CAPSULE PO SCH ×3 (09:07→18:30)
[2016-07-21] MEDS: PANTOPRAZOLE 40 MG TABLET PO SCH (09:08)
[2016-07-21] MEDS: CARVEDILOL 3.125 MG TABLET PO SCH ×2 (09:08→21:41)
[2016-07-21] MEDS: ISOSORBIDE MONONITRATE 30 MG TABLET PO SCH (09:09)
[2016-07-21] MEDS: FAMOTIDINE 20 MG TABLET PO SCH ×2 (09:09→21:41)
[2016-07-21] MEDS: methylPREDNISolone SOD SUC 125 MG/2 ML VIAL IV SCH ×3 (09:13→21:40)
--- NOTE | 2016-07-21 10:19 | Nephrology Progress Note ---
Nephrology - PN: Subj Interval history: Patient is feeling better she denies shortness of breath this morning. Review of systems GI she did not eat any breakfast she states she has decreased appetite. Physical exam general patient is in no acute distress, she has no pitting edema Assessment/plan 1. Congestive heart failure-patient seems much improved today her chest x-ray shows improved aeration 2. End-stage renal disease-patient was dialyzed yesterday we will plan on hemodialysis tomorrow 3. Hypertension this is controlled 4. Secondary hyperparathyroidism we will continue her binders 5. Acute coronary syndrome -patient's for heart cath tomorrow Exam (PN)-Nephrology - Vital Signs Vital signs: Period Temp Pulse Resp BP Sys/Reynolds Pulse Ox Last 24 Hr 97.2 F-99.2 F 79-130 16-38 91-178/44-110 88-100 - Lab 07/21/16 01:01 07/21/16 01:01 Most recent lab results Calcium 7.6 MG/DL (8.5-10.1) L 07/21/16 01:01 Assessment and Plan (1) Congestive heart failure Status: Acute Assessment and plan: This patient has a history of mild to moderate aortic insufficiency as well as elevated pulmonary artery pressures and mild tricuspid regurgitation. Her ejection fraction is around 55% a year ago. Her troponin I is elevated and agree with the following a repeat level of this. It may be worth repeating her echocardiogram as well. Current Visit: Yes (2) End stage renal disease on dialysis Status: Acute Assessment and plan: We will plan on dialyzing the patient today with vigorous ultrafiltration as tolerated. Current Visit: Yes (3) Hypertension Status: Acute Assessment and plan: This should improve with dialysis and fluid removal Current Visit: Yes (4) Pulmonary edema Status: Acute Current Visit: Yes (5) Shortness of breath Status: Acute Current Visit: Yes (6) Secondary hyperparathyroidism Status: Acute Assessment and plan: We will continue her Sensipar and calcium based phosphate binder Current Visit: Yes
--- NOTE | 2016-07-21 16:18 | History and Physical Update ---
Sedation H&P Update - History and Physical H&P was reviewed, the patient examined and there: are no changes in the patients condition since last H&P was completed. - Dictation Physical: refer to H&P completed by admitting physician - Physical Exam Mental Status: alert and oriented Heart: regular rate and rhythm Lung: clear to auscultation Abdomen: within normal limits Vitals: within normal limits - Sedation Plan for Sedation: moderate Patient Consent: Procedure disscussed with patient and patinet has consented., Risks and benefits were discussed with patient,including infection,, bleeding, injury to surrounding structures, seizure, temporary nerve, Patient understands and accepts potential risks/benefits and agrees to, proceed. ASA Class: II Airway Assessment: Class II: Soft palate, uvula, fauces visible
[2016-07-21] MEDS: ENOXAPARIN 30 MG/0.3 ML SYRINGE SUBCUT SCH (18:30)
[2016-07-21] MEDS: ATORVASTATIN 20 MG TABLET PO SCH (21:41)
[2016-07-22] MEDS: methylPREDNISolone SOD SUC 125 MG/2 ML VIAL IV SCH ×5 (02:09→21:25)
[2016-07-22] MEDS: diphenhydrAMINE CAP 50 MG CAPSULE PO SCH ×4 (02:09→17:23)
[2016-07-22] MEDS ORDERED: DIAZEPAM 5 MG TABLET PO ONE (06:00)
[2016-07-22 06:10] LABS: Basophils % 0.1 % (0.0-0.8); Hematocrit 29.1 VOL% (35.7-47.0); Hemoglobin 9.6 GM/DL (12.0-16.0); Immature Granulocytes % 0.9 %; Immature Granulocytes Absolute 0.11 #; Lymphocytes # 0.9 10*3/uL (1.4-4.0); Lymphocytes % 7.9 % (21.3-54.2); Mean Corpuscular Hemoglobin 24 PG (27-34); Mean Corpuscular Volume 71.3 FL (87-102); Mean Platelet Volume 10.8 FL (9.6-12.0); Monocytes # 0.7 10*3/uL (0.11-0.8); Monocytes % 5.8 % (1.7-12.7); NRBC # 0.02 10*3/uL; Neutrophils % 85.3 % (38.7-73.9); Platelet Count 306 T/CUMM (130-400); Red Blood Count 4.08 MC/CUMM (3.8-5.5); Red Cell Distribution Width 18.6 % (9.3-17.3); White Blood Count 11.7 T/CUMM (4-12)
[2016-07-22 06:32] LABS: Magnesium 2.3 MG/DL (1.8-2.4); Magnesium 2.4 MG/DL (1.8-2.4); Osmolality,Calculated 271.9 MOS/KG (273-304); Osmolality,Calculated 273.8 MOS/KG (273-304); Potassium 3.8 MMOL/L (3.5-5.1); Potassium 3.9 MMOL/L (3.5-5.1)
[2016-07-22] MEDS ORDERED: LIDOCAINE 1% 20 ML VIAL ONE (07:18)
[2016-07-22] MEDS ORDERED: HEPARIN/NACL 0.9% 2 UNITS/ML 1,000 ML IV ONE (07:18)
[2016-07-22] MEDS ORDERED: MIDAZOLAM 2 MG/2 ML VIAL ONE (07:29)
[2016-07-22] MEDS ORDERED: HYDROmorphone 2 MG/1 ML VIAL ONE (07:29)
[2016-07-22] MEDS: CALCIUM ACETATE 667 MG CAPSULE PO SCH ×3 (07:44→17:23)
[2016-07-22] MEDS ORDERED: ADENOSINE 90 MG/30 ML VIAL IV ONE (08:05)
--- NOTE | 2016-07-22 08:50 | Cardiology Operative Report ---
Date of Procedure:: 07/22/16 Pre-op diagnosis: CHF and cardiomyopathy Post-op diagnosis: same Procedure: Cardiac catheterization procedure note #1 left heart catheterization #2 selective coronary angiography #3 left ventriculography #4 FFR LAD Omnipaque was used for the procedure Description of procedure Following sterile preparation draping of the right groin, local anesthesia was achieved by infiltration with 1% Xylocaine. Using a Cook needle the right femoral artery was cannulated and a #6 sheath was inserted. A 6 Polish pigtail catheter was advanced retrograde across aortic valve into the left ventricle and the end-diastolic pressure was recorded. Left ventriculography was performed in the HOOVER projection using 24 cc of contrast. A pullback was made across phytic valve. The pigtail catheter change for a 6 Polish left Luisa catheter and left coronary angiography was performed in HOOVER and NIGERIAN projections. The catheter change for a 6 Polish right Amplatz catheter and right coronary angiography was performed in the NIGERIAN projection only. The cath exchanged for a 6 Polish left Luisa 3.5 guiding catheter and the left main was recannulated. The patient received a 2 minute adenosine infusion and FFR was calculated. The FFR was 0.80. The catheter and sheath were then removed and the femoral arch Levi site was sealed percutaneously with a vascade percutaneous closure device with prompt cessation of bleeding and probably turn of the femoral and foot pulses. The patient tolerated the procedure well. He was transported back to telemetry in stable condition. Hemodynamic data Aortic pressure 103/51 mean 71 LV 103/14 Selective coronary angiography The left main trunk is calcified and patent. The LAD is a large vessel that extends well beyond the apex. It is diffusely calcified and has a smooth 60-70 % stenosis in the proximal segment after the first septal geodetic computator. 3 diagonal branches have mild disease only. The circumflex is occluded after the first OM branch. The right coronary is diffusely calcified and has mild diffuse disease. Left ventriculography The ejection fraction is 20-25% with severe global hypokinesis. Trivial mitral vegetation. Impression #1 increased LVEDP 14 #2 ejection fraction 20-25% with severe global hypokinesis #3 trivial mitral regurgitation #4 no aortic valve gradient #5 left main trunk-calcified, patent #6 LAD calcified throughout its course. There is a smooth 60-70% stenosis after the first septal geodetic computator. FFR was 0.80 #7 diagonal branches-mild disease #8 circumflex-100% occlusion after OM1 takeoff #9 dominant right coronary-diffusely calcified with mild diffuse disease only Disposition The patient has a multifactorial cardiomyopathy. The circumflex is occluded after the OM branch and the LAD has a moderate lesion with FFR 0.80, and her LV dysfunction is out of proportion to the amount of CAD. Ejection fraction is 20- 25% with severe global hypokinesis. This patient is allergic to aspirin ibuprofen IVP dye and ASHER inhibitor. The LAD lesion is smooth and borderline with an FFR of 0.8 medical management recommended. Implants: No implants Anesthesia: moderate conscious sedation Surgeon / Physician: Hung Briones Estimated blood loss: minimal Specimens: none sent Condition: stable Disposition: floor
[2016-07-22] MEDS: ISOSORBIDE MONONITRATE 30 MG TABLET PO SCH (09:16)
[2016-07-22] MEDS: PANTOPRAZOLE 40 MG TABLET PO SCH (09:16)
[2016-07-22] MEDS: CINACALCET 30 MG TABLET PO SCH (09:16)
[2016-07-22] MEDS: FAMOTIDINE 20 MG TABLET PO SCH ×2 (09:17→21:25)
[2016-07-22] MEDS: CARVEDILOL 3.125 MG TABLET PO SCH ×2 (09:17→21:25)
--- NOTE | 2016-07-22 10:31 | Physician Query Form ---
CLICK EDIT DOCUMENT TO SELECT QUERY ANSWER --> OK --> SIGN Madina Le RN Clinical Chainer W) [phone] (f) [phone] [email or web address] PROVIDERS: Make your selection(s) from the choices in EACH section by typing an "x" and enter comments in the comment section. Please use your independent medical judgment in providing your response. This request does not imply that any particular answer is desired or expected. CLINICAL INDICATORS: (Providers should not edit this section) Based on lab results of sodium = 129. Pt. treated with IV fluids of Normal Saline. Based on the above, could you clarify the appropriate diagnosis, if significant , that supports the above abnormalities and additional evaluation, monitoring, and/or treatment rendered: (x ) Pt. treated for hyponatremia ( ) Pt. not treated for hyponatremia ( ) Other, please specify: ( ) Clinically unable to determine COMMENTS: PLEASE ALSO DOCUMENT RESPONSE IN PROGRESS NOTES AND/OR DISCHARGE SUMMARY Use of terms such as suspected, likely, or probable (associated with a specific diagnosis that is being evaluated, monitored, or treated as if it exists) are acceptable and can be restated in the discharge summary if not ruled out. [facility]
[2016-07-22] MEDS ORDERED: HEPARIN 10,000 UNIT/10 ML VIAL IV PRN (11:11)
--- NOTE | 2016-07-22 11:57 | Hospitalist Progress Note ---
Assessment and Plan (1) Acute respiratory failure Status: Resolved Assessment and plan: 1)acute hypoxic resp failure due to acute systolic heart failure from newly diagnosed cardiomyopathy, and acute coronary syndrome- her hypoxia has resolved. 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 She will be treated with medical management. cardiology managing post cath steroids/benadryl/pepcid given for dye allergy. LDL is 66, HDL 123. counseled to stop smoking. Now on lovenox, lipitor, imdur, coreg. 2)ESRD- HD per Dr Tee. 3)dispo- plan dc home perhaps tomorrow. Current Visit: No (2) End stage renal disease on dialysis Status: Acute Current Visit: Yes (3) Pulmonary edema Status: Acute Current Visit: Yes (4) ACS (acute coronary syndrome) Status: Acute Current Visit: Yes (5) CHF (congestive heart failure), NYHA class III Status: Acute Current Visit: Yes Qualifiers: Congestive heart failure type: systolic Congestive heart failure chronicity : acute Qualified Code(s): I50.21 - Acute systolic (congestive) heart failure (6) Cardiomyopathy Status: Acute Current Visit: Yes (7) Tobacco abuse Status: Chronic Current Visit: Yes Hospitalist: Subjective Interval history: I saw Mrs Castellon at dialysis after cath. She is feeling well, no shortness of breath and lying flat without trouble. She lives at home and plans to return there. Neither she nor her daughter think she needs swing bed. Exam - Constitutional Vitals: Period Temp Pulse Resp BP Sys/Reynolds Pulse Ox Last 24 Hr 97.7 F-98.7 F 62-84 14-20 86-114/47-67 91-100 General appearance: normal weight, no acute distress - Head Head exam: Present: normocephalic, atraumatic - Eye Eye exam: Present: EOMI. Absent: scleral icterus - Respiratory Respiratory exam: Present: clear to auscultation bilaterally - Cardiovascular Cardiovascular exam: Present: regular rate and rhythm - GI/Abdominal GI/Abdominal exam: Present: normal bowel sounds, soft. Absent: tenderness - Extremities Exam Extremities exam: Absent: edema - Neurological Exam Neurological exam: Present: alert, oriented X3 - Skin Skin exam: Present: warm, dry Results - Labs CBC & BMP: 07/22/16 05:45 07/22/16 05:45 Lab Results: I have reviewed the past 24 hour labs Quality Measures - VTE Contraindication to Mechanical VTE Prophylaxis: Trauma to Legs Specialty Discharge - Follow Up or Referrals
--- NOTE | 2016-07-22 12:45 | Nephrology Progress Note ---
Nephrology - PN: Subj Interval history: Patient is seen on hemodialysis, she is without complaints she denies shortness of breath Assessment/plan #1. End-stage renal disease-we will continue hemodialysis 3. Hypertension 3. Secondary hyperparathyroidism 4. Congestive heart failure-patient has an ejection fraction of 20-25% heart catheterization done today, the patient has also noted to have fairly impressive coronary artery disease Exam (PN)-Nephrology - Vital Signs Vital signs: Period Temp Pulse Resp BP Sys/Reynolds Pulse Ox Last 24 Hr 97.7 F-98.7 F 62-83 14-20 86-114/47-67 91-100 - Lab 07/22/16 05:45 07/22/16 05:45 Most recent lab results Calcium 8.0 MG/DL (8.5-10.1) L 07/22/16 05:45 Magnesium 2.3 MG/DL (1.8-2.4) 07/22/16 05:45 Assessment and Plan (1) Congestive heart failure Status: Acute Assessment and plan: This patient has a history of mild to moderate aortic insufficiency as well as elevated pulmonary artery pressures and mild tricuspid regurgitation. Her ejection fraction is around 55% a year ago. Her troponin I is elevated and agree with the following a repeat level of this. It may be worth repeating her echocardiogram as well. Current Visit: Yes (2) End stage renal disease on dialysis Status: Acute Assessment and plan: We will plan on dialyzing the patient today with vigorous ultrafiltration as tolerated. Current Visit: Yes (3) Hypertension Status: Acute Assessment and plan: This should improve with dialysis and fluid removal Current Visit: Yes (4) Pulmonary edema Status: Acute Current Visit: Yes (5) Shortness of breath Status: Acute Current Visit: Yes (6) Secondary hyperparathyroidism Status: Acute Assessment and plan: We will continue her Sensipar and calcium based phosphate binder Current Visit: Yes Specialty Discharge - Follow Up or Referrals
[2016-07-22] MEDS: ENOXAPARIN 30 MG/0.3 ML SYRINGE SUBCUT SCH (17:31)
[2016-07-22] MEDS: ATORVASTATIN 20 MG TABLET PO SCH (21:25)
[2016-07-23] MEDS: diphenhydrAMINE CAP 50 MG CAPSULE PO SCH ×2 (00:43→06:00)
[2016-07-23] MEDS: methylPREDNISolone SOD SUC 125 MG/2 ML VIAL IV SCH ×2 (02:04→08:30)
[2016-07-23 05:34] LABS: Basophils % 0.1 % (0.0-0.8); Hematocrit 28.2 VOL% (35.7-47.0); Hemoglobin 9.1 GM/DL (12.0-16.0); Immature Granulocytes % 1.1 %; Immature Granulocytes Absolute 0.12 #; Lymphocytes # 0.7 10*3/uL (1.4-4.0); Lymphocytes % 6.2 % (21.3-54.2); Mean Corpuscular HGB Conc 32.3 GM/DL (32-36); Mean Corpuscular Hemoglobin 24 PG (27-34); Mean Corpuscular Volume 72.7 FL (87-102); Mean Platelet Volume 11.3 FL (9.6-12.0); Monocytes # 0.6 10*3/uL (0.11-0.8); Monocytes % 4.9 % (1.7-12.7); NRBC # 0.02 10*3/uL; Neutrophils # 9.9 10*3/uL (1.4-7.4); Neutrophils % 87.7 % (38.7-73.9); Platelet Count 273 T/CUMM (130-400); Red Blood Count 3.88 MC/CUMM (3.8-5.5); Red Cell Distribution Width 18.8 % (9.3-17.3); White Blood Count 11.3 T/CUMM (4-12)
[2016-07-23 06:01] LABS: Calcium 8.1 MG/DL (8.5-10.1); Magnesium 2.2 MG/DL (1.8-2.4); Osmolality,Calculated 276.2 MOS/KG (273-304); Potassium 3.9 MMOL/L (3.5-5.1)
[2016-07-23] MEDS: CINACALCET 30 MG TABLET PO SCH (08:29)
[2016-07-23] MEDS: PANTOPRAZOLE 40 MG TABLET PO SCH (08:29)
[2016-07-23] MEDS: FAMOTIDINE 20 MG TABLET PO SCH ×3 (08:29→21:06)
[2016-07-23] MEDS: ISOSORBIDE MONONITRATE 30 MG TABLET PO SCH (08:29)
[2016-07-23] MEDS: CALCIUM ACETATE 667 MG CAPSULE PO SCH ×3 (08:29→17:02)
[2016-07-23] MEDS: CARVEDILOL 3.125 MG TABLET PO SCH ×2 (08:30→21:06)
--- NOTE | 2016-07-23 11:23 | Hospitalist Progress Note ---
Assessment and Plan (1) Acute respiratory failure Status: Resolved Assessment and plan: 1)acute hypoxic resp failure due to acute systolic heart failure from newly diagnosed cardiomyopathy, and acute coronary syndrome- her hypoxia has resolved. Because she has had mild NSTEMI and a dramatic decrease in EF on current echo, Dr Briones did cath that showed occluded circumflex and LAD which is calcified with 60-70% stenosis after first septal fireperson. She will be treated with medical management. LDL is 66, HDL 123. counseled to stop smoking. Now on lovenox, lipitor, imdur, coreg. 2)ESRD- HD per Dr Tee. 3)dispo- plan dc home perhaps tomorrow. 4)confusion- encephalopathy due to med effects- stop benadryl and steroids. reassess tomorrow. Current Visit: No (2) End stage renal disease on dialysis Status: Acute Current Visit: Yes (3) Pulmonary edema Status: Acute Current Visit: Yes (4) ACS (acute coronary syndrome) Status: Acute Current Visit: Yes (5) CHF (congestive heart failure), NYHA class III Status: Acute Current Visit: Yes Qualifiers: Congestive heart failure type: systolic Congestive heart failure chronicity : acute Qualified Code(s): I50.21 - Acute systolic (congestive) heart failure (6) Cardiomyopathy Status: Acute Current Visit: Yes (7) Tobacco abuse Status: Chronic Current Visit: Yes Hospitalist: Subjective Interval history: Mrs Castellon feels good and is sitting up in her chair reading the paper and drinking coffee. She wants her Tessio out because the dressing is itchy. This morning the nurese had to stop her from getting on the elevator and going to smoke and she told them she needed a frying thakur to cook some meat she had in her room. They note she has not been herself since getting scheduled benadryl and steroids for her IV dye allergy periop from cath. Denies pain, shortness of breath. Wants to go home. Exam - Constitutional Vitals: Period Temp Pulse Resp BP Sys/Reynolds Pulse Ox Last 24 Hr 97.5 F-98.2 F 62-81 16-20 108-167/54-80 93-97 General appearance: normal weight, no acute distress - Head Head exam: Present: normocephalic, atraumatic - Eye Eye exam: Present: EOMI. Absent: scleral icterus - Respiratory Respiratory exam: Present: clear to auscultation bilaterally - Cardiovascular Cardiovascular exam: Present: regular rate and rhythm - GI/Abdominal GI/Abdominal exam: Present: normal bowel sounds, soft. Absent: tenderness - Extremities Exam Extremities exam: Absent: edema - Neurological Exam Neurological exam: Present: alert, oriented X3 - Skin Skin exam: Present: warm, dry Results - Labs CBC & BMP: 07/23/16 04:51 07/23/16 04:51 Lab Results: I have reviewed the past 24 hour labs Quality Measures - VTE Contraindication to Mechanical VTE Prophylaxis: Trauma to Legs Specialty Discharge - Follow Up or Referrals Follow up with: Gorge Buchanan MD [Physician] - 07/28/16 10:30 am (REMOVAL OF TESSIO CATH)
--- NOTE | 2016-07-23 12:45 | Nephrology Progress Note ---
Nephrology - PN: Subj Interval history: Patient is feeling better. She denies shortness of breath. Review of systems GI she denies nausea or vomiting Physical exam general the patient is in no acute distress, legs reveal no pretibial edema Assessment/plan 1. End-stage renal disease-we will continue hemodialysis support, I spoke to Dr. Major about removing the tunneled dialysis catheter from a right neck he plans on doing this as an outpatient within the next week or so 2. Cardiomyopathy-this patient has coronary artery disease as well as a decreased ejection fraction around 20% 3. Secondary hyperparathyroidism 4. Congestive heart failure-patient seems to be adequately compensated presently Exam (PN)-Nephrology - Vital Signs Vital signs: Period Temp Pulse Resp BP Sys/Reynolds Pulse Ox Last 24 Hr 97.2 F-98.2 F 64-81 16-20 109-167/54-80 93-97 - Lab 07/23/16 04:51 07/23/16 04:51 Most recent lab results Calcium 8.1 MG/DL (8.5-10.1) L 07/23/16 04:51 Magnesium 2.2 MG/DL (1.8-2.4) 07/23/16 04:51 Assessment and Plan (1) Congestive heart failure Status: Acute Assessment and plan: This patient has a history of mild to moderate aortic insufficiency as well as elevated pulmonary artery pressures and mild tricuspid regurgitation. Her ejection fraction is around 55% a year ago. Her troponin I is elevated and agree with the following a repeat level of this. It may be worth repeating her echocardiogram as well. Current Visit: Yes (2) End stage renal disease on dialysis Status: Acute Assessment and plan: We will plan on dialyzing the patient today with vigorous ultrafiltration as tolerated. Current Visit: Yes (3) Hypertension Status: Acute Assessment and plan: This should improve with dialysis and fluid removal Current Visit: Yes (4) Pulmonary edema Status: Acute Current Visit: Yes (5) Shortness of breath Status: Acute Current Visit: Yes (6) Secondary hyperparathyroidism Status: Acute Assessment and plan: We will continue her Sensipar and calcium based phosphate binder Current Visit: Yes Specialty Discharge - Follow Up or Referrals Follow up with: Gorge Buchanan MD [Physician] - 07/28/16 10:30 am (REMOVAL OF TESSIO CATH)
--- NOTE | 2016-07-23 13:43 | Cardiology Progress Note ---
Assessment and Plan - Time spent with patient Time spent with patient: Greater than 30 minutes (1) ACS (acute coronary syndrome) Status: Acute Assessment and plan: SEE PLAN OF CARE LISTED BELOW Current Visit: Yes (2) Hypertension Status: Chronic Assessment and plan: SEE PLAN OF CARE LISTED BELOW Current Visit: Yes (3) CHF (congestive heart failure), NYHA class III Status: Acute Assessment and plan: SEE PLAN OF CARE LISTED BELOW Current Visit: Yes Qualifiers: Congestive heart failure type: systolic Congestive heart failure chronicity : acute Qualified Code(s): I50.21 - Acute systolic (congestive) heart failure (4) Allergy to IVP dye Status: Chronic Assessment and plan: SEE PLAN OF CARE LISTED BELOW Current Visit: Yes (5) Cardiomyopathy Status: Acute Assessment and plan: SEE PLAN OF CARE LISTED BELOW Current Visit: Yes (6) Tobacco abuse Status: Chronic Assessment and plan: SEE PLAN OF CARE LISTED BELOW Current Visit: Yes (7) CKD (chronic kidney disease) stage 4, GFR 15-29 ml/min Status: Chronic Assessment and plan: SEE PLAN OF CARE LISTED BELOW Current Visit: No (8) CAD (coronary artery disease) Status: Acute Assessment and plan: SEE PLAN OF CARE LISTED BELOWE Current Visit: Yes Cardiology - PN: Subj Interval history: WIRE STITCHER OPERATOR: DR. SILVA (NEW) SUMMARY: Presented to the ER July 20, 2016 with SOB. Risk factors include: Hypertension, suspected dyslipidemia, sedentary lifestyle, tobaccoism and end- stage renal disease. Past medical history includes end-stage renal disease requiring hemodialysis, anemia. Upon arrival to ER diagnosed with CHF, possible pneumonia, and newly discovered cardiomyopathy. Echo revealed EF 20%- 25%, mild to moderate MR, PAP 59.9mmHg + RAP. July 22, 2016 underwent LHC with the following impression noted: Impression #1 increased LVEDP 14 #2 ejection fraction 20-25% with severe global hypokinesis #3 trivial mitral regurgitation #4 no aortic valve gradient #5 left main trunk-calcified, patent #6 LAD calcified throughout its course. There is a smooth 60-70% stenosis after the first septal threading machine setter. FFR was 0.80 #7 diagonal branches-mild disease #8 circumflex-100% occlusion after OM1 takeoff #9 dominant right coronary-diffusely calcified with mild diffuse disease only Disposition The patient has a multifactorial cardiomyopathy. The circumflex is occluded after the OM branch and the LAD has a moderate lesion with FFR 0.80, and her LV dysfunction is out of proportion to the amount of CAD. Ejection fraction is 20- 25% with severe global hypokinesis. This patient is allergic to aspirin ibuprofen IVP dye and ASHER inhibitor. The LAD lesion is smooth and borderline with an FFR of 0.8 medical management recommended. JULY 23, 2016: Overnight, patient's vital signs are stable. Breathing continues to improve. Groin soft and free of hematoma or bruit. IVP DYE ALLERGY. Has been receiving pre-op prophylaxis. This morning she has been mildly confused and the steroids have now been discontinued. She is no longer confused. Adding Hydralazine to med regiman today, already taking Imdur. Hopefully, she will be eligible for discharge in the morning. ASSESSMENT/PLAN: 1. NSTEMI - See [facility] report. ASA allergy. Anemia and avoiding Plavix at this time. 2. ACUTE CHF - acute CHF secondary to severely reduced LVEF (20%), [place] Heart Association Classification III. 3. COMBINED CARDIOMYOPATHY - adding Hydralazine to med regimen as we are avoiding ASHER-Inhibitor. Already taking Betablocker and Imdur. 4. HYPERTENSION - adequately controlled. Currently tolerating beta blockade. 5. UNKNOWN LIPID STATUS - continue lipid lowering agent. LDL 64 6. IV DYE ALLERGY - continue plan of care 7. ESRD - HD managed by Dr. Tee. 8. TOBACCO ABUSE - greater than 5 minutes was spent today discussing the merits of tobacco cessation per 9. CAD - see [facility]. Exam (Progress Note) - Constitutional Vitals: Period Temp Pulse Resp BP Sys/Reynolds Pulse Ox Last 24 Hr 97.2 F-98.2 F 68-81 16-20 116-167/54-80 93-97 General appearance: normal weight, no mild distress - Head Head exam: Present: normocephalic, atraumatic - Eye Eye exam: Present: EOMI. Absent: nystagmus Pupils: Present: MARIANO, normal accommodation - ENT ENT exam: Present: normal external ear exam, normal oropharynx - Neck Neck exam: Absent: lymphadenopathy, tenderness, thyromegaly - Respiratory Respiratory exam: Present: clear to auscultation bilaterally. Absent: accessory muscle use, chest wall tenderness - Cardiovascular Cardiovascular exam: Present: regular rate and rhythm. Absent: systolic murmur - GI/Abdominal GI/Abdominal exam: Present: normal bowel sounds. Absent: firm, mass - Extremities Exam Extremities exam: Absent: calf tenderness, edema - Back Exam Back exam: Absent: CVA tenderness (L), CVA tenderness (R), muscle spasm - Neurological Exam Neurological exam: Present: alert, oriented X3, normal gait - Psychiatric Psychiatric exam: Present: normal affect, normal mood - Skin Skin exam: Present: warm, dry Result/EKG - Labs CBC & BMP: 07/23/16 04:51 07/23/16 04:51 Lab Results: I have reviewed the past 24 hour labs Labs: Laboratory Results - last 24 hr 07/22/16 07/22/16 07/23/16 15:57 19:55 04:51 WBC RBC Hgb Hct MCV MCH MCHC RDW Plt Count MPV Neut % (Auto) Lymph % (Auto) [place] % (Auto) Eos % (Auto) Baso % (Auto) Neut # (Auto) Lymph # (Auto) [place] # (Auto) Eos # (Auto) Baso # (Auto) Immature Gran % Nucleated RBC % Immature Gran # Nucleated RBCs # Sodium 134 L Potassium 3.9 Chloride 98 Carbon Dioxide 22 Anion Gap 17.9 H BUN 32 H D Creatinine 5.00 H GFR Calculation 10 BUN/Creatinine Ratio 6.00 Glucose 135 H POC Glucose 142 H 126 H Calculated Osmolality 276.2 Calcium 8.1 L Magnesium 2.2 07/23/16 07/23/16 07/23/16 04:51 07:48 11:18 WBC 11.3 RBC 3.88 Hgb 9.1 L Hct 28.2 L MCV 72.7 L MCH 24 L MCHC 32.3 RDW 18.8 H Plt Count 273 MPV 11.3 Neut % (Auto) 87.7 H Lymph % (Auto) 6.2 L [place] % (Auto) 4.9 Eos % (Auto) 0.0 Baso % (Auto) 0.1 Neut # (Auto) 9.9 H Lymph # (Auto) 0.7 L [place] # (Auto) 0.6 Eos # (Auto) 0.0 Baso # (Auto) 0.0 Immature Gran % 1.1 Nucleated RBC % 0.2 Immature Gran # 0.12 Nucleated RBCs # 0.02 Sodium Potassium Chloride Carbon Dioxide Anion Gap BUN Creatinine GFR Calculation BUN/Creatinine Ratio Glucose POC Glucose 132 H 130 H Calculated Osmolality Calcium Magnesium - Diagnostic Findings Procedure: Chest x-ray: report reviewed by me - EKG EKG results: interpreted by me EKG shows: sinus rhythm Quality Measures - VTE Contraindication to Mechanical VTE Prophylaxis: Trauma to Legs Specialty Discharge - Follow Up or Referrals Follow up with: Gorge Buchanan MD [Physician] - 07/28/16 10:30 am (REMOVAL OF TESSIO CATH)
[2016-07-23] MEDS: hydrALAZINE 25 MG TABLET PO SCH ×2 (14:17→21:06)
[2016-07-23] MEDS: ENOXAPARIN 30 MG/0.3 ML SYRINGE SUBCUT SCH (17:36)
[2016-07-23] MEDS: ATORVASTATIN 20 MG TABLET PO SCH (21:06)
[2016-07-24 05:31] LABS: Basophils % 0.1 % (0.0-0.8); Eosinophils % 0.1 % (0.00-10.9); Hematocrit 26.2 VOL% (35.7-47.0); Hemoglobin 8.5 GM/DL (12.0-16.0); Immature Granulocytes % 1.8 %; Immature Granulocytes Absolute 0.21 #; Lymphocytes # 2.1 10*3/uL (1.4-4.0); Lymphocytes % 17.8 % (21.3-54.2); Mean Corpuscular HGB Conc 32.4 GM/DL (32-36); Mean Corpuscular Hemoglobin 24 PG (27-34); Mean Platelet Volume 10.4 FL (9.6-12.0); Monocytes # 1.5 10*3/uL (0.11-0.8); Monocytes % 12.1 % (1.7-12.7); Neutrophils # 8.1 10*3/uL (1.4-7.4); Neutrophils % 68.1 % (38.7-73.9); Platelet Count 266 T/CUMM (130-400); Red Blood Count 3.59 MC/CUMM (3.8-5.5); Red Cell Distribution Width 18.6 % (9.3-17.3); White Blood Count 11.9 T/CUMM (4-12)
[2016-07-24 05:58] LABS: Calcium 8.1 MG/DL (8.5-10.1); Magnesium 2.1 MG/DL (1.8-2.4); Potassium 3.8 MMOL/L (3.5-5.1)
--- NOTE | 2016-07-24 08:24 | Nephrology Progress Note ---
Nephrology - PN: Subj Interval history: Patient denies shortness of breath. Review of systems GI she denies nausea or vomiting Physical exam general the patient's in no acute distress, she has no pitting edema Assessment/plan 1. End-stage renal disease-patient is for dialysis today, I spoke to her about dialyzing either today in the afternoon in [place] or even tomorrow as an outpatient she is agreeable to both of these. We will try to make arrangements for her to dialyze him as an outpatient if she is discharged today. Consult social media designer to try and help with these arrangements. 2. Hypertension her antihypertensives are being titrated, I believe her blood pressure is acceptable presently for a dialysis patient 3. Secondary hyperparathyroidism 4. Congestive heart failure-this patient has an impressive cardiomyopathy, counseled her on trying to limit her sodium and fluid intake between dialysis treatments. Exam (PN)-Nephrology - Vital Signs Vital signs: Period Temp Pulse Resp BP Sys/Reynolds Pulse Ox Last 24 Hr 96.9 F-98.9 F 71-80 16-20 130-159/61-77 96-100 - Lab 07/24/16 05:10 07/24/16 05:10 Most recent lab results Calcium 8.1 MG/DL (8.5-10.1) L 07/24/16 05:10 Magnesium 2.1 MG/DL (1.8-2.4) 07/24/16 05:10 Assessment and Plan (1) Congestive heart failure Status: Acute Assessment and plan: This patient has a history of mild to moderate aortic insufficiency as well as elevated pulmonary artery pressures and mild tricuspid regurgitation. Her ejection fraction is around 55% a year ago. Her troponin I is elevated and agree with the following a repeat level of this. It may be worth repeating her echocardiogram as well. Current Visit: Yes (2) End stage renal disease on dialysis Status: Acute Assessment and plan: We will plan on dialyzing the patient today with vigorous ultrafiltration as tolerated. Current Visit: Yes (3) Hypertension Status: Acute Assessment and plan: This should improve with dialysis and fluid removal Current Visit: Yes (4) Pulmonary edema Status: Acute Current Visit: Yes (5) Shortness of breath Status: Acute Current Visit: Yes (6) Secondary hyperparathyroidism Status: Acute Assessment and plan: We will continue her Sensipar and calcium based phosphate binder Current Visit: Yes Specialty Discharge - Follow Up or Referrals Follow up with: Gorge Buchanan MD [Physician] - 07/28/16 10:30 am (REMOVAL OF TESSIO CATH)
[2016-07-24] MEDS: CALCIUM ACETATE 667 MG CAPSULE PO SCH ×2 (08:56→12:32)
[2016-07-24] MEDS: hydrALAZINE 25 MG TABLET PO SCH ×2 (08:56→15:19)
[2016-07-24] MEDS: FAMOTIDINE 20 MG TABLET PO SCH (08:56)
[2016-07-24] MEDS: CARVEDILOL 3.125 MG TABLET PO SCH (08:56)
[2016-07-24] MEDS: PANTOPRAZOLE 40 MG TABLET PO SCH (08:56)
[2016-07-24] MEDS: ISOSORBIDE MONONITRATE 30 MG TABLET PO SCH (08:56)
[2016-07-24] MEDS: CINACALCET 30 MG TABLET PO SCH (08:56)
--- NOTE | 2016-07-24 08:58 | Discharge Summary ---
Hospital Course - Hospital Course Hospital Course: Ms. Castellon is a 65-year-old -[place] female with history of hypertension and end-stage renal disease on HD admitted by the hospitalist service on 07/20/2016 with increased shortness of breath. She was found to be in acute hypoxic respiratory failure due to acute systolic heart failure from newly diagnosed cardiomyopathy and acute coronary syndrome. Her echo showed a reduced EF of 20% down from 55% a year ago. Cardiology was consulted and recommended continued diuresis and proceed to cardiac catheterization. Dr. cruz performed a heart cath on 07/22/2016 where he found the EF at 20-25% with severe global hypokinesis and trivial mitral regurgitation. 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 No stents were placed. She will be treated with medical management. Patient was also counseled multiple times on smoking cessation. Patient did have an IVP dye allergy and this was managed with post cath steroids/Benadryl/Pepcid. She did have some confusion and the steroids were discontinued. This did resolve. She is doing very well status post cath. She will need to follow-up with Dr. Segura in [address] Tee from nephrology was consulted for her dialysis needs while she is in the hospital. Dr. Buchanan was also consulted for her Tessio catheter in the right chest wall. This is unused due to dialyzing out of her forearm fistula without difficulty. Due to all of her heart issues Dr. Buchanan opted to have patient return to the office next week for dialysis catheter removal. Patient is reached maximal hospital benefit. She is feeling better and ready for discharge. Patient's case was coordinated with Yolanda Casiano for cardiology, Dr. Major, and Dr. Tee, along with patient and nursing. Case coordination, chart review, and discharge paperwork all took approximately 46 minutes. - Time spent with patient Time with patient DS: Greater than 30 minutes Diagnosis - Discharge Diagnosis (1) Hypertension Status: Chronic (2) Shortness of breath Status: Resolved (3) Pulmonary edema Status: Resolved (4) Congestive heart failure Status: Chronic (5) ESRD (end stage renal disease) on dialysis Status: Chronic (6) ACS (acute coronary syndrome) Status: Resolved (7) Cardiomyopathy Status: Chronic Specialty Discharge - Follow Up or Referrals Follow up with: Gorge Buchanan MD [Physician] - 07/28/16 10:30 am (REMOVAL OF TESSIO CATH) Discharge Plan - Discharge Data Disposition: Disch To Home/Self Care Condition at Discharge: Stable Discharge Diet: heart healthy Activity: resume usual activities as tolerated Hygiene: no restrictions Contact your physician if you experience:: Redness or swelling, Shortness of breath - Discharge Medications Continue Famotidine 20 mg PO BID Pantoprazole Tab [Protonix Tab] 40 mg PO DAILY #90 tablet NS Cinacalcet HCl [Sensipar] 60 mg PO DAILY Calcium Acetate 667 mg PO TID W/MEALS amLODIPine [Norvasc] 2.5 mg PO DAILY Isosorbide Mononitrate [Imdur] 15 mg PO DAILY #60 tablet Atorvastatin [Lipitor] 20 mg PO BEDTIME #60 tablet hydrALAZINE TAB [Apresoline Tab] 25 mg PO TID #90 tablet Changed hydrALAZINE TAB [Apresoline Tab] 25 mg PO BID #90 Carvedilol [Coreg] 6.25 mg PO BID #90 tablet NS Discontinued Atorvastatin [Lipitor] 10 mg PO DAILY #90 tablet - Follow Up or Referral Follow Up: Gorge Buchanan MD [Physician] - 07/28/16 10:30 am (REMOVAL OF TESSIO CATH) Mauricio Segura MD [Physician] - 1 Month - Forms/Instructions Instructions: Coronary Artery Disease (GEN), Left Heart Catheterization (DC), Heart Healthy Diet (GEN), Cigarette Smoking and Your Health, Ring Stamper ( GEN), How to Stop Smoking, Ring Stamper (GEN) Exam - Constitutional Vitals: Period Temp Pulse Resp BP Sys/Reynolds Pulse Ox Last 24 Hr 96.9 F-98.9 F 71-80 16-20 130-159/61-77 96-100 Exam: 65-year-old -[place] female, no acute distress, alert and oriented Chest clear CV regular rate and rhythm Abdomen soft and nontender Extremities with no edema Discharge Results Labs on day of discharge: Labs from last 24 hours 07/24/16 07/24/16 07/24/16 07:25 05:10 05:10 WBC 11.9 RBC 3.59 L Hgb 8.5 L Hct 26.2 L MCV 73.0 L MCH 24 L MCHC 32.4 RDW 18.6 H Plt Count 266 MPV 10.4 Neut % (Auto) 68.1 Lymph % (Auto) 17.8 L Reagan % (Auto) 12.1 Eos % (Auto) 0.1 Baso % (Auto) 0.1 Neut # (Auto) 8.1 H Lymph # (Auto) 2.1 Reagan # (Auto) 1.5 H Eos # (Auto) 0.0 Baso # (Auto) 0.0 Immature Gran % 1.8 Nucleated RBC % 0.0 Immature Gran # 0.21 Nucleated RBCs # 0.00 Sodium 136 Potassium 3.8 Chloride 99 Carbon Dioxide 23 Anion Gap 17.8 H BUN 50 H Creatinine 6.70 H GFR Calculation 7 BUN/Creatinine Ratio 7.00 Glucose 89 POC Glucose 92 Calculated Osmolality 283.0 Calcium 8.1 L Magnesium 2.1 07/23/16 11:18 WBC RBC Hgb Hct MCV MCH MCHC RDW Plt Count MPV Neut % (Auto) Lymph % (Auto) Reagan % (Auto) Eos % (Auto) Baso % (Auto) Neut # (Auto) Lymph # (Auto) Reagan # (Auto) Eos # (Auto) Baso # (Auto) Immature Gran % Nucleated RBC % Immature Gran # Nucleated RBCs # Sodium Potassium Chloride Carbon Dioxide Anion Gap BUN Creatinine GFR Calculation BUN/Creatinine Ratio Glucose POC Glucose 130 H Calculated Osmolality Calcium Magnesium DS: Provider Date of admission: 07/20/16 06:39 Primary care physician: . No PCP Attending physician on admission: Orlin Weiss Jr., MD Consults: 07/20/16 08:16 Consult to Physician [CONS] Routine Comment: pt of your, sob Consulting Provider: Orlin Weiss Jr. When should Consulting Provider be notified: Now 07/20/16 08:46 Consult to Physician [CONS] Routine Comment: ESRD with CHF Consulting Provider: Orlin Weiss Jr. 07/20/16 08:55 Consult to Physician [CONS] Routine Comment: pt of yours, removal of hd catheter Consulting Provider: Gorge Buchanan When should Consulting Provider be notified: Now 07/20/16 17:33 Consult to Physician [CONS] Routine Comment: new syst CHF and elevated troponin Consulting Provider: Consult to Specialist Group: Cardiology When should Consulting Provider be notified: In am Person Notified: CIS PROPERTY CLERK Date Notified: 07/21/16 Time Notified: 07:20 07/22/16 08:51 Consult to Cardiac Rehabilitation [CONS] Routine Reason for Cardiac Rehabilitation: Risk Factor Modification 07/24/16 08:21 Consult to Case Mgmt/Social Srvs [CONS] Routine Reason for Case Mgmt/Social Srvs: Dialysis Consult Comment: try to arrange o/p dialysis in [place] today or tomorrow Discharging clinician: JENNA Rodriguez Expected date of discharge: 07/24/16
[2016-07-24] MEDS ORDERED: CARVEDILOL 6.25 MG TABLET PO SCH (09:00)
[2016-07-24] MEDS ORDERED: CARVEDILOL 3.125 MG TABLET PO ONE (09:08)
[2016-07-24 16:35] VITALS: BP 153/69
== END 2016-07-24 17:25 | disposition home or self-care (01) | DRG 280 ==
LOC: EDUNIT# → EDBD → N.ED 06:05 → N.EDINP 06:39 → SUATTDRO 06:39 → N.ICU 08:45 → N.CC 08:50 → N.TELEN 07-21 15:03
PROVIDERS: ADMIT Internal Medicine Nephrology; ATTEND Internal Medicine
PROC: CLCCHCL (ICD-10-PCS; 2016-07-22 07:45)

== ENCOUNTER 2016-08-03 02:07 | Inpatient (IN) ==
[2016-08-03] MEDS ORDERED: PROPOFOL 1,000 MG/100 ML BOTTLE IV ONE (02:09)
[2016-08-03 03:03] LABS: Basophils % 0.1 % (0.0-0.8); Eosinophils % 0.2 % (0.00-10.9); Hematocrit 24.2 VOL% (35.7-47.0); Immature Granulocytes % 1.9 %; Immature Granulocytes Absolute 0.36 #; Lymphocytes % 5.6 % (21.3-54.2); Mean Corpuscular HGB Conc 33.1 GM/DL (32-36); Mean Corpuscular Hemoglobin 24 PG (27-34); Mean Corpuscular Volume 72.7 FL (87-102); Monocytes # 0.6 10*3/uL (0.11-0.8); Monocytes % 3.2 % (1.7-12.7); Neutrophils # 16.5 10*3/uL (1.4-7.4); Platelet Count 452 T/CUMM (130-400); Red Blood Count 3.33 MC/CUMM (3.8-5.5); Red Cell Distribution Width 17.9 % (9.3-17.3); White Blood Count 18.5 T/CUMM (4-12)
--- NOTE | 2016-08-03 03:07 | Emergency Department Note ---
ILuna Kasabria, am scribing for, and in the presence of, Yeni Layton DO 03 :03. ICalin Debra, DO, personally performed the services described in this documentation, ascribed by Balwinder Carrasco in my presence, and it is both accurate and complete . Arrival - Arrival Limitations: No Limitations Source: Patient Time Seen by Provider: 08/03/16 02:34 - History of Present Illness HPI Narrative: This is a 65 y/o black female presenting to the ED as a transfer from [facility]. Pt was found unresponsive. Pt is sedated and intubated. Her PMHx is consistent with HTN, diabetes, and renal failure. She is currently on dialysis. Consistency: constant Severity: moderate Allergies/Adverse Reactions: Allergies Allergy/AdvReac Type Severity Reaction Status Date / Time ASHER Inhibitors Allergy Unknown/Unable Verified 07/23/15 20:00 to obtain aspirin Allergy Unknown/Unable Verified 07/23/15 20:00 to obtain ibuprofen Allergy Unknown/Unable Verified 07/23/15 20:00 to obtain IV DYE Allergy Severe ANAPHYLAXIS Uncoded 06/30/16 10:50 Home Medications: Home Medications Medication Instructions Recorded Confirmed Type Famotidine 20 mg PO BID 07/23/15 08/03/16 History Pantoprazole Tab [Protonix Tab] 40 mg PO DAILY #90 tablet NS 09/30/15 08/03/16 Rx Calcium Acetate 667 mg PO TID W/MEALS 06/30/16 08/03/16 History Cinacalcet HCl [Sensipar] 60 mg PO DAILY 06/30/16 08/03/16 History amLODIPine [Norvasc] 2.5 mg PO DAILY 06/30/16 08/03/16 History Atorvastatin [Lipitor] 20 mg PO BEDTIME #60 tablet 07/24/16 08/03/16 Rx Carvedilol [Coreg] 6.25 mg PO BID #90 tablet NS 07/24/16 08/03/16 Rx Isosorbide Mononitrate [Imdur] 15 mg PO DAILY #60 tablet 07/24/16 08/03/16 Rx hydrALAZINE TAB [Apresoline Tab] 25 mg PO TID #90 tablet 07/24/16 08/03/16 Rx Hydrocodone/Acetaminophen [[place] 1 each PO Q4-6H PRN 08/03/16 08/03/16 History 7.5-325 Tablet] Review of System - Review of System ROS unobtainable: due to endotracheal tube (limited ) 12 point system: reviewed and no additional remarkable complaints except as stated - Review of System Constitutional: Absent: fever Allergic/Immunologic: Absent: facial swelling Medical,Surgical,& Family Hx - Medical History Cardio: History of: CHF (diagnosed on admisssion), Hypertension No history of: CAD, [place] Neurology: No history of: Brain Aneurysm, Cerebral Hemorrhage, Cerebrovascular Accident , Cerebral Palsy, Dementia, Migraine, Multiple Sclerosis, Parkinson's Disease, Peripheral Neuropathy, Seizures, TIA, Vertigo, Neurologocal Cancer HEENT: History of: Eye Problem (GLASS), HEENT Problems (chronic sinuse issues) Endocrine: History of: Diabetes Mellitus (NIDDM) Respiratory: No history of: Respiratory Problems Renal: History of: Dialysis (TUNNEL CATHETER RIGHT UPPER CHEST AV FISTULA LEFT ARM), Renal Failure Gastrointestinal: History of: GERD, Gastrointestinal Bleed (diagnosed on admisssion) Musculoskeletal: History of: Musculoskeletal Problems (ARTHRITIS) Hematology: History of: Anemia - Surgical History Cardiac Surgeries: Patient Denies: Cardiac Surgery Thoracic Surgeries: Patient denies;: Organ Transplant Neurologic Surgeries: Patient denies: Brain Aneurysm, Cerebral Hemorrhage, Neurologic Surgery Abdominal Surgeries: Surgical HX of: Colonoscopy, EGD Orthopedic Surgeries: Surgical HX of;: Orthopedic Surgery (right shoulder surgery 2012 rotary cuff with pins and screws) - Family History Family History: Reports;: Family Cancer (mother), Family Diabetes (brother), Family Heart Disease (sister dies of CHF), Family Hypertension, Family Stroke ( 2 brother) - Social History Smoking Status: Current every day smoker Exam Vital Signs: Vital Signs Temperature 98.8 F 08/03/16 02:34 Pulse Rate 93 H 08/03/16 02:34 Respiratory Rate 12 08/03/16 03:01 Blood Pressure 174/88 08/03/16 02:34 O2 Sat by Pulse Oximetry 100 08/03/16 02:34 - General Exam limited due to: other (intubation ) General appearance: other (sedated ) - Head Head exam: Present: atraumatic, normocephalic, normal inspection - Eye Eye exam: Present: normal appearance, PERRL, EOMI - ENT ENT exam: Present: other (sedated and intubated ) - Neck Neck exam: Present: normal inspection, trachea midline - Chest Chest inspection: Present: symmetric chest wall rise - Respiratory Respiratory exam: Present: rales (bilaterally ), other (decreased breath sounds bilaterally ). Absent: normal lung sounds bilaterally - Cardiovascular Cardiovascular exam: Present: regular rate, normal rhythm, normal heart sounds - Abdominal Exam Abdominal exam: Present: soft, normal bowel sounds. Absent: distention, tenderness - Extremities Exam Extremities exam: Present: full ROM, normal capillary refill, pedal edema (mild non pitting edema BLE ). Absent: normal inspection, tenderness, calf tenderness - Back Exam Back exam: Present: normal inspection, full ROM. Absent: tenderness - Psychiatric Psychiatric exam: Present: normal affect, normal mood - Skin Skin exam: Present: warm, dry, intact, normal color. Absent: rash, diaphoresis Course Course Narrative: pt will be admitted to hospitalist service with pulmonary edema. pt is intubated and will go to the unit. Disposition Clinical Impression: Pulmonary edema Disposition: Still a Patient Condition: Stable Time of Disposition: 03:06
[2016-08-03] MEDS: PROPOFOL 1,000 MG/100 ML BOTTLE IV SCH ×3 (03:10→09:01)
[2016-08-03 03:24] LABS: Alanine Aminotransferase 13 U/L (13-56); Albumin 2.6 G/DL (3.4-5.0); Alkaline Phosphatase 120 U/L (45-117); Aspartate Amino Transferase 28 U/L (0-37); Bilirubin,Total < 0.39 MG/DL (0.2-1.0); Blood Urea Nitrogen 27 MG/DL (7-18); Calcium 7.1 MG/DL (8.5-10.1); Glucose 88 MG/DL (74-106); Magnesium 1.9 MG/DL (1.8-2.4); Osmolality,Calculated 278.7 MOS/KG (273-304); Potassium 3.5 MMOL/L (3.5-5.1); Sodium 138 MMOL/L (136-145); Total Protein 6.5 G/DL (6.4-8.3)
[2016-08-03] MEDS ORDERED: VANCOMYCIN INJ 1,000 MG in SODIUM CHLORIDE 0.9% 250 ML IV SCH (03:30)
--- NOTE | 2016-08-03 03:36 | Hospitalist History & Physical ---
Assessment and Plan (1) Comatose Status: Acute Assessment and plan: Patient was found unresponsive at home from having seen around 2 PM today. Not known what had happened. There was no complaints when she was awake. If she does not workup in the coming 24 hours an MRI of the brain will be necessary to rule out stroke. Current Visit: Yes (2) End stage renal disease on dialysis Status: Acute Assessment and plan: Consult nephrology for dialysis arrangement Current Visit: No (3) Cardiomyopathy Status: Chronic Assessment and plan: Known in the past history. What is contributing to current syndrome is not known. Repeat cardiac markers serially 3 times Current Visit: No History of Present Illness History of present illness: Ms. Castellon is a 65 year old female presented to the ED as a transfer from [facility]. Pt was found unresponsive. Pt is sedated and intubated. Her PMHx is consistent with HTN, diabetes, and renal failure. She is currently on dialysis. Patient was found unresponsive at home in the emergency rescue team allowed. Patient had to be intubated. However a chance to talk to her daughter who states that she saw her mother around 2 PM and nothing was going on at the time. No complaint of anything at that time either. Patient has a history of being admitted he had respiratory failure in the past. The daughter acknowledges mother to be a smoker he is to be a rather heavy smoker. She also drinks some. Does not use illicit drugs. Home Medications Medication Instructions Recorded Confirmed Type Famotidine 20 mg PO BID 07/23/15 08/03/16 History Pantoprazole Tab [Protonix Tab] 40 mg PO DAILY #90 tablet NS 09/30/15 08/03/16 Rx Calcium Acetate 667 mg PO TID W/MEALS 06/30/16 08/03/16 History Cinacalcet HCl [Sensipar] 60 mg PO DAILY 06/30/16 08/03/16 History amLODIPine [Norvasc] 2.5 mg PO DAILY 06/30/16 08/03/16 History Atorvastatin [Lipitor] 20 mg PO BEDTIME #60 tablet 07/24/16 08/03/16 Rx Carvedilol [Coreg] 6.25 mg PO BID #90 tablet NS 07/24/16 08/03/16 Rx Isosorbide Mononitrate [Imdur] 15 mg PO DAILY #60 tablet 07/24/16 08/03/16 Rx hydrALAZINE TAB [Apresoline Tab] 25 mg PO TID #90 tablet 07/24/16 08/03/16 Rx Hydrocodone/Acetaminophen [[place] 1 each PO Q4-6H PRN 08/03/16 08/03/16 History 7.5-325 Tablet] Allergies Allergy/AdvReac Type Severity Reaction Status Date / Time ASHER Inhibitors Allergy Unknown/Unable Verified 07/23/15 20:00 to obtain aspirin Allergy Unknown/Unable Verified 07/23/15 20:00 to obtain ibuprofen Allergy Unknown/Unable Verified 07/23/15 20:00 to obtain IV DYE Allergy Severe ANAPHYLAXIS Uncoded 06/30/16 10:50 Medical,Surgical,& Family Hx - Medical History Cardio: History of: CHF (diagnosed on admisssion), Hypertension No history of: CAD, [place] Neurology: No history of: Brain Aneurysm, Cerebral Hemorrhage, Cerebrovascular Accident , Cerebral Palsy, Dementia, Migraine, Multiple Sclerosis, Parkinson's Disease, Peripheral Neuropathy, Seizures, TIA, Vertigo, Neurologocal Cancer HEENT: History of: Eye Problem (GLASS), HEENT Problems (chronic sinuse issues) Endocrine: History of: Diabetes Mellitus (NIDDM) Respiratory: No history of: Respiratory Problems Renal: History of: Dialysis (TUNNEL CATHETER RIGHT UPPER CHEST AV FISTULA LEFT ARM), Renal Failure Gastrointestinal: History of: GERD, Gastrointestinal Bleed (diagnosed on admisssion) Musculoskeletal: History of: Musculoskeletal Problems (ARTHRITIS) Hematology: History of: Anemia - Surgical History Cardiac Surgeries: Patient Denies: Cardiac Surgery Thoracic Surgeries: Patient denies;: Organ Transplant Neurologic Surgeries: Patient denies: Brain Aneurysm, Cerebral Hemorrhage, Neurologic Surgery Abdominal Surgeries: Surgical HX of: Colonoscopy, EGD Orthopedic Surgeries: Surgical HX of;: Orthopedic Surgery (right shoulder surgery 2012 rotary cuff with pins and screws) - Family History Family History: Reports;: Family Cancer (mother), Family Diabetes (brother), Family Heart Disease (sister dies of CHF), Family Hypertension, Family Stroke ( 2 brother) - Social History Smoking Status: Current every day smoker Frequency of Alcohol Use: Frequently Type of Drug Use: None ROS unobtainable: due to endotracheal tube Exam - Constitutional Vitals: Period Temp Pulse Resp BP Sys/Reynolds Pulse Ox Last 24 Hr 98.5 F-98.8 F 93-93 12-12 174-174/88-88 100 General appearance: over weight - Head Head exam: Present: normocephalic, atraumatic - Eye Eye exam: Present: other (No conjunctival petechia active) Pupils: Present: MARIANO - ENT ENT exam: Present: other (Patient is orally intubated) - Neck Neck exam: Present: other (Midline trachea no JVD no) - Respiratory Respiratory exam: Present: clear to auscultation bilaterally, other (No wheezing no rales no rhonchi) - Cardiovascular Cardiovascular exam: Present: regular rate and rhythm, other (Sinus control. EKG shows transition of anterior forces) - GI/Abdominal GI/Abdominal exam: Present: normal bowel sounds, soft - Neurological Exam Neurological exam: Present: other (Patient is sedated and intubated) - Psychiatric Psychiatric exam: Present: other (Sedated and intubated) - Skin Skin exam: Present: normal color, warm, dry Results - Labs CBC & BMP: 08/03/16 02:32 08/03/16 02:32 Lab Results: I have reviewed the past 24 hour labs (Elevated white counts chronic looking anemia unit of 8 BUN of 27 patient receives dialysis Wednesday and Wednesday) - Diagnostic Findings Procedure: Chest x-ray: pending
--- NOTE | 2016-08-03 03:49 | EKG Report ---
Stationary ECG Study [facility] ER Test Date: 08/03/2016 2:15:28 AM Pat Name: ROSEMARIE SPARKS Department: Room: Gender: F Rod Drawer: : 1950 Requested by: Shantanu Bonilla Order Number: [id number] Reading MD: SHERIE FRYE Intervals [place] Rate: 89 P: 59 [place]: 147 QRS: 74 QRSD: 92 T: 53 QT: 434 QTc: 481 Interpretive Statements SINUS RHYTHM PROLONGED QT INTERVAL Electronically Signed On 08-03-16 07:07:39 CDT by SHERIE FRYE [email or web address]
[2016-08-03 04:18] LABS: Troponin I Only 0.565 NG/ML (0.00-0.045)
[2016-08-03] MEDS ORDERED: VANCOMYCIN INJ 750 MG in SODIUM CHLORIDE 0.9% 250 ML IV SCH (05:00)
[2016-08-03] MEDS ORDERED: VANCOMYCIN INJ 500 MG in SODIUM CHLORIDE 0.9% 100 ML IV PRN (05:00)
[2016-08-03] MEDS ORDERED: DEXTROSE 50% 25 GM/50 ML VIAL IV PRN (05:09)
[2016-08-03] MEDS ORDERED: GLUCAGON 1 MG VIAL IM PRN (05:09)
[2016-08-03 05:41] LABS: ABG Base Excess 8.4 MMOL/L (-2.5-2.5); ABG Oxygen Saturation 99.6 % (95-100); ABG PCO2 46.4 MM HG (35-48); ABG PO2 406.4 MM HG (80-95); ABG TCO2 34.4 MMOL/L (23-27); Allen Test Positive; Pt O2 Delivery Device Ventilator
[2016-08-03] MEDS: INSULIN REGULAR 100 UNIT/ML SUBCUT SCH ×3 (06:19→18:59)
[2016-08-03 07:51] LABS: Troponin I Only 0.526 NG/ML (0.00-0.045)
--- NOTE | 2016-08-03 07:54 | Cardiology Consult Note ---
<Angie Harris E - Last Filed: 08/03/16 07:51> Assessment and Plan - Time spent with patient Time spent with patient: Greater than 30 minutes (Due to assessment, plan, and documentation.) (1) Elevated troponin Status: Acute Assessment and plan: See plan of care listed below. Current Visit: Yes (2) Comatose Status: Acute Assessment and plan: See plan of care listed below. Current Visit: Yes (3) CAD (coronary artery disease) Status: Chronic Assessment and plan: See plan of care listed below. Current Visit: No (4) Hypertension Status: Chronic Assessment and plan: See plan of care listed below. Current Visit: No (5) Congestive heart failure Status: Acute Assessment and plan: See plan of care listed below. Current Visit: No Qualifiers: Congestive heart failure chronicity: acute on chronic (6) Cardiomyopathy Status: Chronic Assessment and plan: See plan of care listed below. Current Visit: No (7) ESRD (end stage renal disease) on dialysis Status: Chronic Assessment and plan: See plan of care listed below. Current Visit: No History of Present Illness - Data of Consult Patient: known to practice within the last 3 years (followed by Dr. De Anda) Consult date: 08/03/16 Requesting Physician: Shantanu Bonilla - Consult Narrative Reason for consult: Elevated troponin History of present illness: DROSOPHERE OPERATOR: DR. DE ANDA Ms. Castellon is being seen in the CCU. She is sedated and intubated. Much of the history is obtained from the record. Ms. Castellon is a 65 year old female with a past medical history of coronary artery disease, hypertension, congestive heart failure, cardiomyopathy, end-stage renal disease on dialysis. She was just previously hospitalized approximately 2 weeks ago and was diagnosed with an an STEMI. She underwent left heart catheterization on July 22, 2016 which revealed increased LVEDP 14, EF 20-25% with severe global hypokinesis, trivial MR, calcified LAD with a smooth 60-70% stenosis after the first septal bilingual sales representative, mild disease in the diagonal branches, and 100% occlusion after the OM1 takeoff of the circumflex, densely calcified RCA with mild diffuse disease. She had a peak troponin of 4.53. Ms. Castellon who was admitted to the hospital early this morning after being found unresponsive at home. She is sedated and intubated on mechanical ventilation. We are consulted to see her due to an elevated troponin. Apparently she was found unresponsive at home last night after last being seen awake around 4 5 PM. It is unknown at this time she was unresponsive. She had no recent complaints according to the record. She does have a history of being admitted with respiratory failure in the past. Her creatinine on admission was 8.0. Troponin was 0.565 with normal CK-MB and CPK. Repeat troponin was 0.5-6 with normal CK-MB and CPK. This is likely due to her recent NSTEMI with enzymes much improved from her previous hospitalization. [facility] no [facility] pathology. ASSESSMENT/PLAN: 1. ELEVATED TROPONIN -this is likely due to her recent and STEMI with enzymes trending down. Troponin was 4.53 on 07/20/2016 and 3.47 on 07/21/2016. 2. COMATOSE - Patient was found unresponsive at home. She was sedated and intubated and transferred to our facility for further evaluation and treatment. 3. CAD -she underwent recent heart catheterization which revealed calcified LAD with a smooth 60-70% stenosis after the first septal bilingual sales representative, mild disease in the diagonal branches, and 100% occlusion after the OM1 takeoff of the circumflex, densely calcified RCA with mild diffuse disease. 4. HYPERTENSION -borderline elevated we will resume her home medicines. This will be adjusted accordingly. 5. CHF -proBNP at the [facility] facility was 48,177. Recent ejection fraction 20 -25% per left heart catheterization. 6. CARDIOMYOPATHY - She underwent left heart catheterization on July 22, 2016 which revealed increased LVEDP 14, EF 20-25% with severe global hypokinesis, trivial MR. 7. ESRD ON DIALYSIS -nephrology has been consulted. She had recently been seen by Dr. De Anda on 07/30/2016 for preop evaluation for removal of a temporary IJ dialysis catheter by Dr. Major. I am unsure when this was scheduled to be performed. Dr. Alberto to follow with further plan and addendum. CC: Stephanie Hinkle MD - Home Medications and Allergies Home Medications: Home Medications Medication Instructions Recorded Confirmed Type Famotidine 20 mg PO BID 07/23/15 08/03/16 History Pantoprazole Tab [Protonix Tab] 40 mg PO DAILY #90 tablet NS 09/30/15 08/03/16 Rx Calcium Acetate 667 mg PO TID W/MEALS 06/30/16 08/03/16 History Cinacalcet HCl [Sensipar] 60 mg PO DAILY 06/30/16 08/03/16 History amLODIPine [Norvasc] 2.5 mg PO DAILY 06/30/16 08/03/16 History Atorvastatin [Lipitor] 20 mg PO BEDTIME #60 tablet 07/24/16 08/03/16 Rx Carvedilol [Coreg] 6.25 mg PO BID #90 tablet NS 07/24/16 08/03/16 Rx Isosorbide Mononitrate [Imdur] 15 mg PO DAILY #60 tablet 07/24/16 08/03/16 Rx hydrALAZINE TAB [Apresoline Tab] 25 mg PO TID #90 tablet 07/24/16 08/03/16 Rx Hydrocodone/Acetaminophen [[place] 1 each PO Q4-6H PRN 08/03/16 08/03/16 History 7.5-325 Tablet] Allergies/Adverse Reactions: Allergies Allergy/AdvReac Type Severity Reaction Status Date / Time ASHER Inhibitors Allergy Unknown/Unable Verified 07/23/15 20:00 to obtain aspirin Allergy Unknown/Unable Verified 07/23/15 20:00 to obtain ibuprofen Allergy Unknown/Unable Verified 07/23/15 20:00 to obtain IV DYE Allergy Severe ANAPHYLAXIS Uncoded 06/30/16 10:50 ROS unobtainable: due to endotracheal tube Medical,Surgical,& Family Hx - Medical History Cardio: History of: CHF (diagnosed on admisssion), Hypertension No history of: CAD, [place] Neurology: No history of: Brain Aneurysm, Cerebral Hemorrhage, Cerebrovascular Accident , Cerebral Palsy, Dementia, Migraine, Multiple Sclerosis, Parkinson's Disease, Peripheral Neuropathy, Seizures, TIA, Vertigo, Neurologocal Cancer HEENT: History of: Eye Problem (GLASS), HEENT Problems (chronic sinuse issues) Endocrine: History of: Diabetes Mellitus (NIDDM) Respiratory: No history of: Respiratory Problems Renal: History of: Dialysis (TUNNEL CATHETER RIGHT UPPER CHEST AV FISTULA LEFT ARM), Renal Failure Gastrointestinal: History of: GERD, Gastrointestinal Bleed (diagnosed on admisssion) Musculoskeletal: History of: Musculoskeletal Problems (ARTHRITIS) Hematology: History of: Anemia - Surgical History Cardiac Surgeries: Patient Denies: Cardiac Surgery Thoracic Surgeries: Patient denies;: Organ Transplant Neurologic Surgeries: Patient denies: Brain Aneurysm, Cerebral Hemorrhage, Neurologic Surgery Abdominal Surgeries: Surgical HX of: Colonoscopy, EGD Orthopedic Surgeries: Surgical HX of;: Orthopedic Surgery (right shoulder surgery 2012 rotary cuff with pins and screws) - Family History Family History: Reports;: Family Cancer (mother), Family Diabetes (brother), Family Heart Disease (sister dies of CHF), Family Hypertension, Family Stroke ( 2 brother) - Social History Smoking Status: Current every day smoker Frequency of Alcohol Use: Frequently Type of Drug Use: None Physical Examination Vital Signs Resp 12 08/03/16 02:13 Other: General appearance: Orally intubated and sedated on ventilator. Normal weight, no acute distress. - Head Head exam: Present: normal inspection, normocephalic, atraumatic. Absent: hematoma, laceration - Eye Eye exam: Present: EOMI. Absent: conjunctival injection, nystagmus, periorbital swelling, scleral icterus, laceration to eyelids Pupils: Present: PERRL. Absent: constricted, dilated, fixed, irregular, unequal - ENT ENT exam: Present: Orally intubated, normal external ear exam - Neck Neck exam: Present: normal inspection. Absent: lymphadenopathy, meningismus, tenderness, thyromegaly - Respiratory Respiratory exam: Present: Mechanically ventilated breath sounds. Absent: accessory muscle use - Cardiovascular Cardiovascular exam: Present: regular rate and rhythm. Absent: carotid bruit, gallop, JVD, rubs, murmur - GI/Abdominal GI/Abdominal exam: Present: normal bowel sounds, soft. Absent: distended, firm , guarding, hernia, mass, tenderness, rebound. - Extremities Exam Extremities exam: Present: normal inspection, normal capillary refill. Upper extremity pulses 2+. Lower extremity pulses 2+. Absent: calf tenderness, edema - Back Exam Back exam: Present: Unable to examine due to habitus. Sedated on mechanical ventilator. - Neurological Exam Neurological exam: Present: Limited due to habitus (on ventilator). Arousable to verbal stimuli. Follows commands appropriately. No resting or essential tremor. - Psychiatric Psychiatric exam: Present: Unable to adequately assess due to patient being sedated and on mechanical ventilation. - Skin Skin exam: Present: normal color, warm, dry, intact. Absent: cyanosis, diaphoretic, rash, urticaria Result/EKG - Labs CBC & BMP: 05/29/17 02:32 08/03/16 02:32 Lab Results: I have reviewed the past 24 hour labs Labs: Laboratory Results - last 24 hr 08/03/16 08/03/16 08/03/16 02:32 02:32 02:32 WBC 18.5 H RBC 3.33 L Hgb 8.0 L Hct 24.2 L MCV 72.7 L MCH 24 L MCHC 33.1 RDW 17.9 H Plt Count 452 H MPV 10.0 Neut % (Auto) 89.0 H Lymph % (Auto) 5.6 L [place] % (Auto) 3.2 Eos % (Auto) 0.2 Baso % (Auto) 0.1 Neut # (Auto) 16.5 H Lymph # (Auto) 1.0 L [place] # (Auto) 0.6 Eos # (Auto) 0.0 Baso # (Auto) 0.0 Immature Gran % 1.9 Nucleated RBC % 0.0 Immature Gran # 0.36 Nucleated RBCs # 0.00 ABG pH ABG pCO2 ABG pO2 ABG HCO3 ABG Total CO2 ABG O2 Saturation ABG Base Excess FiO2 Sodium 138 Potassium 3.5 Chloride 97 L Carbon Dioxide 34 H Anion Gap 10.5 BUN 27 H Creatinine 8.00 H GFR Calculation 6 BUN/Creatinine Ratio 3.00 L Glucose 88 POC Glucose Calculated Osmolality 278.7 Calcium 7.1 L Magnesium 1.9 Total Bilirubin < 0.39 AST 28 ALT 13 Alkaline Phosphatase 120 H Total Creatine Kinase 72 CK-MB (CK-2) < 1.0 Troponin I 0.565 H Total Protein 6.5 Albumin 2.6 L Globulin 3.9 H Albumin/Globulin Ratio 0.6 L TSH 3rd Generation 2.510 Serum Alcohol < 15 L 08/03/16 08/03/16 08/03/16 05:35 06:19 07:07 WBC RBC Hgb Hct MCV MCH MCHC RDW Plt Count MPV Neut % (Auto) Lymph % (Auto) [place] % (Auto) Eos % (Auto) Baso % (Auto) Neut # (Auto) Lymph # (Auto) [place] # (Auto) Eos # (Auto) Baso # (Auto) Immature Gran % Nucleated RBC % Immature Gran # Nucleated RBCs # ABG pH 7.470 H ABG pCO2 46.4 ABG pO2 406.4 H ABG HCO3 33.0 H ABG Total CO2 34.4 H ABG O2 Saturation 99.6 ABG Base Excess 8.4 H FiO2 100.00 Sodium Potassium Chloride Carbon Dioxide Anion Gap BUN Creatinine GFR Calculation BUN/Creatinine Ratio Glucose POC Glucose 90 Calculated Osmolality Calcium Magnesium Total Bilirubin AST ALT Alkaline Phosphatase Total Creatine Kinase 68 CK-MB (CK-2) 1.4 Troponin I 0.526 H Total Protein Albumin Globulin Albumin/Globulin Ratio TSH 3rd Generation Serum Alcohol - EKG EKG results: interpreted by me, sinus rhythm (With ST-T wave abnormality, improved from previous EKG.) <Gali Alberto - Last Filed: 08/03/16 08:31> Assessment and Plan - Time spent with patient Time spent with patient: Greater than 30 minutes (Due to assessment, plan, and documentation. I reviewed TTE and LHC from earlier this month) (1) Pulmonary edema Status: Acute Assessment and plan: Patient's chest x-ray shows some cephalization of vessels. There also appears to be an infiltrate in the right lower lobe to me. Given the fact that she was found down this is suspicious for aspiration pneumonitis especially given her white count of 18,500. Current Visit: Yes (2) Acute respiratory failure Status: Acute Assessment and plan: As above this appears to be multifactorial. Current Visit: No (3) Congestive heart failure Status: Acute Assessment and plan: The patient has both systolic and diastolic heart failure. She has acute decompensation with volume overload. She also has end-stage renal disease and is on hemodialysis. She had a transthoracic echo earlier this month showed ejection fraction of 20-25%. Her ejection fraction looked better at the time of left heart catheterization and she had a normal end-diastolic pressure mildly elevated in the cell pressure of 14 mmHg. I suspect her tachycardia was playing a role in the severity of the way her ejection fraction looked at her transthoracic echo. By the time she had left heart catheterization she was in regular rhythm with controlled rate. Current Visit: No Qualifiers: Congestive heart failure chronicity: acute on chronic (4) End stage renal disease on dialysis Status: Chronic Current Visit: No (5) Anemia Status: Chronic Current Visit: No Qualifiers: Other causes of anemia: chronic disease, other (6) CAD (coronary artery disease) Status: Chronic Assessment and plan: The patient has moderate to severe disease in the LAD is very tortuous and highly calcified with an FFR of 0.8 after 2 minutes of adenosine infusion earlier this month. He will she also has a severe appearing lesion at the crux of the RCA at the bifurcation of PDA and posterior lateral branch. The decision was made to treat this medically at that time. She has no evidence of ongoing ischemia by biomarkers her ECG. She denies any chest pain. I feel that this is best treated medically. Current Visit: No History of Present Illness - Consult Narrative History of present illness: Ms. Castellon is a 65 year old female CC: Stephanie Hinkle MD ROS unobtainable: due to endotracheal tube (The patient is intubated. She is arousable and answers close ended questions. She denies any pain specifically abdominal pain or chest pain.) Medical,Surgical,& Family Hx - Medical History Cardio: History of: CHF (The patient had a low EF on last admission by echo LV gram showed better EF), CAD (Two-vessel coronary artery disease (LAD and RCA) [facility] 07/22/16) - Social History Marital Status: Unknown Physical Examination Vital Signs Resp 12 08/03/16 02:13 General: Present: Other (Intubated response to verbal commands and answers close ended questions) HEENT: Present: Normocephaly Neck: Present: Supple Neck, Midline Trachea Cardiac: Present: Reg Rate and Rhythm, S1/S2, S4, Other (PMI is laterally displaced). Absent: S3 Lungs: Present: Bibasilar Rales, Scattered Rhonchi (Patient has rhonchi posteriorly on the right.) Neuro: Present: Cranial Nerve 2-12 Intact Abdomen: Present: Soft, Active Bowel Sounds Skin: Present: Clear Extremities: Absent: Edema (Loss of pigmentation in her lower extremities.) Result/EKG - Labs CBC & BMP: 08/03/16 02:32 08/03/16 02:32 Labs: Laboratory Results - last 24 hr 08/03/16 08/03/16 08/03/16 02:32 02:32 02:32 WBC 18.5 H RBC 3.33 L Hgb 8.0 L Hct 24.2 L MCV 72.7 L MCH 24 L MCHC 33.1 RDW 17.9 H Plt Count 452 H MPV 10.0 Neut % (Auto) 89.0 H Lymph % (Auto) 5.6 L [place] % (Auto) 3.2 Eos % (Auto) 0.2 Baso % (Auto) 0.1 Neut # (Auto) 16.5 H Lymph # (Auto) 1.0 L [place] # (Auto) 0.6 Eos # (Auto) 0.0 Baso # (Auto) 0.0 Immature Gran % 1.9 Nucleated RBC % 0.0 Immature Gran # 0.36 Nucleated RBCs # 0.00 ABG pH ABG pCO2 ABG pO2 ABG HCO3 ABG Total CO2 ABG O2 Saturation ABG Base Excess FiO2 Sodium 138 Potassium 3.5 Chloride 97 L Carbon Dioxide 34 H Anion Gap 10.5 BUN 27 H Creatinine 8.00 H GFR Calculation 6 BUN/Creatinine Ratio 3.00 L Glucose 88 POC Glucose Calculated Osmolality 278.7 Calcium 7.1 L Magnesium 1.9 Total Bilirubin < 0.39 AST 28 ALT 13 Alkaline Phosphatase 120 H Total Creatine Kinase 72 CK-MB (CK-2) < 1.0 Troponin I 0.565 H Total Protein 6.5 Albumin 2.6 L Globulin 3.9 H Albumin/Globulin Ratio 0.6 L TSH 3rd Generation 2.510 Serum Alcohol < 15 L 08/03/16 08/03/16 08/03/16 05:35 06:19 07:07 WBC RBC Hgb Hct MCV MCH MCHC RDW Plt Count MPV Neut % (Auto) Lymph % (Auto) [place] % (Auto) Eos % (Auto) Baso % (Auto) Neut # (Auto) Lymph # (Auto) [place] # (Auto) Eos # (Auto) Baso # (Auto) Immature Gran % Nucleated RBC % Immature Gran # Nucleated RBCs # ABG pH 7.470 H ABG pCO2 46.4 ABG pO2 406.4 H ABG HCO3 33.0 H ABG Total CO2 34.4 H ABG O2 Saturation 99.6 ABG Base Excess 8.4 H FiO2 100.00 Sodium Potassium Chloride Carbon Dioxide Anion Gap BUN Creatinine GFR Calculation BUN/Creatinine Ratio Glucose POC Glucose 90 Calculated Osmolality Calcium Magnesium Total Bilirubin AST ALT Alkaline Phosphatase Total Creatine Kinase 68 CK-MB (CK-2) 1.4 Troponin I 0.526 H Total Protein Albumin Globulin Albumin/Globulin Ratio TSH 3rd Generation Serum Alcohol - EKG EKG results: sinus rhythm (Nonspecific ST segment changes.)
--- NOTE | 2016-08-03 07:59 | EKG Report ---
Stationary ECG Study [facility] Test Date: 08/03/2016 7:57:12 AM Pat Name: ROSEMARIE SPARKS Department: Room: 120 Gender: F Sr. Director: [place] : 1950 Requested by: Shantanu Bonilla Order Number: [id number] Reading MD: SKYE PENG Intervals [place] Rate: 82 P: 53 SC: 137 QRS: 61 QRSD: 84 T: 89 QT: 424 QTc: 463 Interpretive Statements SINUS RHYTHM ST DEVIATION AND MODERATE T-WAVE ABNORMALITY, CONSIDER LATERAL ISCHEMIA Electronically Signed On 08-03-16 12:48:16 CDT by SKYE PENG [email or web address]
[2016-08-03] MEDS ORDERED: hydrALAZINE 20 MG/1 ML VIAL IV PRN (08:06)
[2016-08-03] MEDS ORDERED: FAMOTIDINE 20 MG TABLET PO SCH (09:00)
[2016-08-03] MEDS ORDERED: hydrALAZINE 25 MG TABLET PO SCH (09:00)
[2016-08-03] MEDS ORDERED: amLODIPine 2.5 MG TABLET PO SCH (09:00)
[2016-08-03] MEDS ORDERED: PANTOPRAZOLE 40 MG TABLET PO SCH (09:00)
--- NOTE | 2016-08-03 09:13 | Pulmonology Consult Note ---
Assessment and Plan (1) Acute respiratory failure Status: Acute Assessment and plan: Patient intubated for airway protection. Unclear what caused her to become unresponsive last night. CXR does not appear overly wet and electrolytes are WNL. Cardiology has been consulted. Will place on low tidal volume lung protective vent settings and continue to assist with this Current Visit: No History of Present Illness History of present illness: Ms. Castellon is a 65 year old female found down last night at home. she was intubated and admitted to the ICU. There is no family present to provide further history. She is a dialysis patient, unknown when her last session was Home Medications Medication Instructions Recorded Confirmed Type Famotidine 20 mg PO BID 07/23/15 08/03/16 History Pantoprazole Tab [Protonix Tab] 40 mg PO DAILY #90 tablet NS 09/30/15 08/03/16 Rx Calcium Acetate 667 mg PO TID W/MEALS 06/30/16 08/03/16 History Cinacalcet HCl [Sensipar] 60 mg PO DAILY 06/30/16 08/03/16 History amLODIPine [Norvasc] 2.5 mg PO DAILY 06/30/16 08/03/16 History Atorvastatin [Lipitor] 20 mg PO BEDTIME #60 tablet 07/24/16 08/03/16 Rx Carvedilol [Coreg] 6.25 mg PO BID #90 tablet NS 07/24/16 08/03/16 Rx Isosorbide Mononitrate [Imdur] 15 mg PO DAILY #60 tablet 07/24/16 08/03/16 Rx hydrALAZINE TAB [Apresoline Tab] 25 mg PO TID #90 tablet 07/24/16 08/03/16 Rx Hydrocodone/Acetaminophen [[place] 1 each PO Q4-6H PRN 08/03/16 08/03/16 History 7.5-325 Tablet] Allergies Allergy/AdvReac Type Severity Reaction Status Date / Time ASHER Inhibitors Allergy Unknown/Unable Verified 07/23/15 20:00 to obtain aspirin Allergy Unknown/Unable Verified 07/23/15 20:00 to obtain ibuprofen Allergy Unknown/Unable Verified 07/23/15 20:00 to obtain IV DYE Allergy Severe ANAPHYLAXIS Uncoded 06/30/16 10:50 ROS unobtainable: due to endotracheal tube Exam (Pulmonay) H&P - Constitutional Vitals: Period Temp Pulse Resp BP Sys/Reynolds Pulse Ox Last 24 Hr 97.6 F-98.8 F 80-93 12-14 144-174/48-88 100-100 General appearance: normal weight, no acute distress - Head Head exam: Present: normal inspection - Respiratory Respiratory exam: Present: clear to auscultation bilaterally - Cardiovascular Cardiovascular exam: Present: regular rate and rhythm - GI/Abdominal GI/Abdominal exam: Present: normal bowel sounds Medical,Surgical,& Family Hx - Medical History Cardio: History of: CHF (The patient had a low EF on last admission by echo LV gram showed better EF), CAD (Two-vessel coronary artery disease (LAD and RCA) [facility] 07/22/16), Hypertension No history of: [place] Neurology: No history of: Brain Aneurysm, Cerebral Hemorrhage, Cerebrovascular Accident , Cerebral Palsy, Dementia, Migraine, Multiple Sclerosis, Parkinson's Disease, Peripheral Neuropathy, Seizures, TIA, Vertigo, Neurologocal Cancer HEENT: History of: Eye Problem (GLASS), HEENT Problems (chronic sinuse issues) Endocrine: History of: Diabetes Mellitus (NIDDM) Respiratory: No history of: Respiratory Problems Renal: History of: Dialysis (TUNNEL CATHETER RIGHT UPPER CHEST AV FISTULA LEFT ARM), Renal Failure Gastrointestinal: History of: GERD, Gastrointestinal Bleed (diagnosed on admisssion) Musculoskeletal: History of: Musculoskeletal Problems (ARTHRITIS) Hematology: History of: Anemia - Surgical History Cardiac Surgeries: Patient Denies: Cardiac Surgery Thoracic Surgeries: Patient denies;: Organ Transplant Neurologic Surgeries: Patient denies: Brain Aneurysm, Cerebral Hemorrhage, Neurologic Surgery Abdominal Surgeries: Surgical HX of: Colonoscopy, EGD Orthopedic Surgeries: Surgical HX of;: Orthopedic Surgery (right shoulder surgery 2012 rotary cuff with pins and screws) - Family History Family History: Reports;: Family Cancer (mother), Family Diabetes (brother), Family Heart Disease (sister dies of CHF), Family Hypertension, Family Stroke ( 2 brother) - Social History Smoking Status: Current every day smoker Frequency of Alcohol Use: Frequently Type of Drug Use: None Results - Labs CBC & BMP: 08/03/16 02:32 08/03/16 02:32 Lab Results: I have reviewed the past 24 hour labs Labs: 7.47/46/406
--- NOTE | 2016-08-03 09:18 | Nephrology Consult Note ---
History of Present Illness Chief complaint: esrd History of present illness: Ms. Castellon is a 65 year old female with end-stage renal disease who dialyzes in [place]. She presented to the [facility] emergency room unresponsive. She was intubated and transferred here after being found down at home. She is now on a ventilator and is arousable and appropriate. She follows commands. Her oxygenation is excellent. Chest x-ray demonstrates some reticular nodular changes in the lower two thirds of both lungs worse on the right base. The etiology of her episode is not clear. She usually dialyzes on Wednesday. On exam she opens her eyes and makes eye contact she is on a ventilator but is comfortable. She follows commands. She has no edema chest is clear and heart without rub or gallop. Heart rhythm is regular. Impression: #1 end-stage renal disease #2 altered mental status now improving question etiology Plan: Hemodialysis today with removal of about 3 kg of volume. Home Medications Medication Instructions Recorded Confirmed Type Famotidine 20 mg PO BID 07/23/15 08/03/16 History Pantoprazole Tab [Protonix Tab] 40 mg PO DAILY #90 tablet NS 09/30/15 08/03/16 Rx Calcium Acetate 667 mg PO TID W/MEALS 06/30/16 08/03/16 History Cinacalcet HCl [Sensipar] 60 mg PO DAILY 06/30/16 08/03/16 History amLODIPine [Norvasc] 2.5 mg PO DAILY 06/30/16 08/03/16 History Atorvastatin [Lipitor] 20 mg PO BEDTIME #60 tablet 07/24/16 08/03/16 Rx Carvedilol [Coreg] 6.25 mg PO BID #90 tablet NS 07/24/16 08/03/16 Rx Isosorbide Mononitrate [Imdur] 15 mg PO DAILY #60 tablet 07/24/16 08/03/16 Rx hydrALAZINE TAB [Apresoline Tab] 25 mg PO TID #90 tablet 07/24/16 08/03/16 Rx Hydrocodone/Acetaminophen [[place] 1 each PO Q4-6H PRN 08/03/16 08/03/16 History 7.5-325 Tablet] Allergies Allergy/AdvReac Type Severity Reaction Status Date / Time ASHER Inhibitors Allergy Unknown/Unable Verified 07/23/15 20:00 to obtain aspirin Allergy Unknown/Unable Verified 07/23/15 20:00 to obtain ibuprofen Allergy Unknown/Unable Verified 07/23/15 20:00 to obtain IV DYE Allergy Severe ANAPHYLAXIS Uncoded 06/30/16 10:50 Medical,Surgical,& Family Hx - Medical History Cardio: History of: CHF (The patient had a low EF on last admission by echo LV gram showed better EF), CAD (Two-vessel coronary artery disease (LAD and RCA) [facility] 07/22/16), Hypertension No history of: [place] Neurology: No history of: Brain Aneurysm, Cerebral Hemorrhage, Cerebrovascular Accident , Cerebral Palsy, Dementia, Migraine, Multiple Sclerosis, Parkinson's Disease, Peripheral Neuropathy, Seizures, TIA, Vertigo, Neurologocal Cancer HEENT: History of: Eye Problem (GLASS), HEENT Problems (chronic sinuse issues) Endocrine: History of: Diabetes Mellitus (NIDDM) Respiratory: No history of: Respiratory Problems Renal: History of: Dialysis (TUNNEL CATHETER RIGHT UPPER CHEST AV FISTULA LEFT ARM), Renal Failure Gastrointestinal: History of: GERD, Gastrointestinal Bleed (diagnosed on admisssion) Musculoskeletal: History of: Musculoskeletal Problems (ARTHRITIS) Hematology: History of: Anemia - Surgical History Cardiac Surgeries: Patient Denies: Cardiac Surgery Thoracic Surgeries: Patient denies;: Organ Transplant Neurologic Surgeries: Patient denies: Brain Aneurysm, Cerebral Hemorrhage, Neurologic Surgery Abdominal Surgeries: Surgical HX of: Colonoscopy, EGD Orthopedic Surgeries: Surgical HX of;: Orthopedic Surgery (right shoulder surgery 2012 rotary cuff with pins and screws) - Family History Family History: Reports;: Family Cancer (mother), Family Diabetes (brother), Family Heart Disease (sister dies of CHF), Family Hypertension, Family Stroke ( 2 brother) - Social History Smoking Status: Current every day smoker Frequency of Alcohol Use: Frequently Type of Drug Use: None Review of Systems ROS unobtainable: due to endotracheal tube 12 point system: reviewed and no additional remarkable complaints except as stated Exam - Vital Signs Vital signs: Period Temp Pulse Resp BP Sys/Reynolds Pulse Ox Last 24 Hr 97.6 F-98.8 F 80-93 12-14 144-174/48-88 100-100 - General Appearance General appearance: well-developed, well-nourished, appears started age EENT: ATNC Neck: no JVD, no thyromegaly, no carotid bruit, supple Respiratory: no kyphosis, no scoliosis Cardiology: no murmurs, no rub, no gallops, no edema, regular rate, regular rhythm, normal S1, normal S2 Gastrointestinal: normoactive bowel sounds Integumentary: no rash, warm and dry Neurologic: no focal deficit, no asterixis, alert and oriented x3, reflexes 2+ and symmetric, gait normal, strength 5/5 Musculoskeletal: no deformities, no erythema, no cyanosis, no clubbing Psychiatric: mood/affect appropriate, cooperative Results - Labs CBC & BMP: 08/03/16 02:32 08/03/16 02:32 Assessment and Plan (1) End stage renal disease on dialysis Status: Chronic Current Visit: No (2) Anemia Status: Chronic Current Visit: No Qualifiers: Other causes of anemia: chronic disease, other Specialty Discharge - Follow Up or Referrals - Speciality Discharge Instructions Nephrology Instructions: Will dialyze today and remove volume hoping that some of this will be improved with volume removal
[2016-08-03] MEDS: CARVEDILOL 6.25 MG TABLET PO SCH ×2 (09:37→20:17)
[2016-08-03] MEDS: ISOSORBIDE MONONITRATE 30 MG TABLET PO SCH (09:37)
[2016-08-03] MEDS: FAMOTIDINE 20 MG TABLET PO SCH (09:38)
--- NOTE | 2016-08-03 09:39 | Dialysis Note ---
Dialysis Note - Dialysis Note Ms. Castellon is seen on hemodialysis. She is tolerating dialysis well. Our goal is to remove 3 kg of volume hopefully to help clear her lungs to enable extubation.
[2016-08-03] MEDS: CINACALCET 30 MG TABLET PO SCH (09:40)
--- NOTE | 2016-08-03 09:49 | XRay Report ---
Portable chest Date: 08/03/2016 Clinical history: Respiratory failure Comparison: 07/21/2016 Technique: Portable AP sitting chest Findings: Persistent cardiomegaly with endotracheal tube and nasogastric tube in satisfactory position. Stable right IJ venous dialysis catheter. Progressive parenchymal findings with larger small pleural effusions. Prior right shoulder replacement with degenerative changes. Impression: The endotracheal tube and nasogastric tube are in satisfactory position with stable right IJ venous dialysis catheter. Progressive moderate pulmonary edema with enlarging small to moderate pleural effusions. PROCEDURE INTERPRETED AT [facility] DEPARTMENT OF RADIOLOGY Final Report Signed by: Dr. Shana Medellin
[2016-08-03] MEDS ORDERED: VANCOMYCIN INJ 1,500 MG in SODIUM CHLORIDE 0.9% 500 ML IV ONE ×2 (10:00→16:00)
[2016-08-03] MEDS ORDERED: HEPARIN 10,000 UNIT/10 ML VIAL IV SCH (11:30)
[2016-08-03] MEDS: CALCIUM ACETATE 667 MG CAPSULE PO SCH ×2 (14:41→18:59)
[2016-08-03] MEDS: PIPERACILLIN/TAZOBACTAM 3,375 MG in SODIUM CHLORIDE 0.9% 100 ML IV SCH ×2 (14:42→20:17)
--- NOTE | 2016-08-03 19:48 | ECHO Report ---
Toma Castellon Exam Date: 08/03/2016 13:30 Referring Physician: Technologist: Amanda Bell Age: 65 Ht (in): 65 Wt (lb): 160 Gender: F Exam Location: [facility] Echo Indications: elevated troponin, ACS, CHF, F/U TTE 07/20/16 BP: 154 / 55 HR: 92 Rhythm: Sinus Technical Quality: limited IMPRESSIONS Left ventricular ejection fraction is estimated at 65%. Mild concentric left ventricular hypertrophy with grade I diastolic dysfunction. Tricuspid regurgitation velocities suggest a RVSP of 39mmHg plus the right atrial pressure. Small pericardial effusion. MEASUREMENTS (Male / Female) Normal Values 2D ECHO LV Diastolic Diameter PLAX 4.4 cm 4.2 - 5.9 / 3.9 - 5.3 cm LV Systolic Diameter PLAX 3.5 cm LV Fractional Shortening PLAX 21.6 % IVS Diastolic Thickness 1.2 cm 0.6 - 1.0 / 0.6 - 0.9 cm LVPW Diastolic Thickness 1.2 cm 0.6 - 1.0 / 0.6 - 0.9 cm RV Internal Dim ED PLAX 2.8 cm Aortic Root Diameter 2.3 cm LA Systolic Diameter LX 3.3 cm 3.0 - 4.0 / 2.7 - 3.8 cm DOPPLER TR Peak Velocity 312.0 cm/s TR Peak Gradient 38.9 mmHg FINDINGS Left Ventricle Mild concentric left ventricular hypertrophy with grade I diastolic dysfunction.left ventricular ejection fraction is estimated at 65% Right Ventricle Normal right ventricular size and systolic function. Right Atrium Normal right atrial size. Left Atrium Normal left atrial size. Mitral Valve Mild mitral valve sclerosis. Mild mitral valve regurgitation. Aortic Valve Mild aortic valve sclerosis. Mild aortic valve regurgitation. Tricuspid Valve Morphologically normal tricuspid valve. Moderate tricuspid valve regurgitation. Tricuspid regurgitation velocities suggest a RVSP of 39mmHg plus the right atrial pressure. Pulmonic Valve Pulmonic valve not well visualized. Pericardium Small pericardial effusion. Aorta Normal size aortic root and proximal ascending aorta. Gali Alberto (Electronically Signed) Final Date: 03 Aug 2016 19:47
[2016-08-03] MEDS: ATORVASTATIN 20 MG TABLET PO SCH (20:17)
[2016-08-04] MEDS: INSULIN REGULAR 100 UNIT/ML SUBCUT SCH ×4 (02:03→19:09)
[2016-08-04] MEDS: PROPOFOL 1,000 MG/100 ML BOTTLE IV SCH (05:43)
--- NOTE | 2016-08-04 07:48 | Cardiology Progress Note ---
Assessment and Plan (1) Pulmonary edema Status: Acute Current Visit: Yes (2) Acute respiratory failure Status: Acute Assessment and plan: She is off the ventilator and looks quite good. Current Visit: No (3) Congestive heart failure Status: Acute Assessment and plan: The patient has does not have systolic dysfunction. She does have mild diastolic dysfunction she has a small pericardial effusion and she also is on dialysis patient. She appears to be much better after dialysis. No further cardiovascular evaluation at this time. Current Visit: No Qualifiers: Congestive heart failure chronicity: acute on chronic (4) End stage renal disease on dialysis Status: Chronic Current Visit: No (5) Anemia Status: Chronic Current Visit: No Qualifiers: Other causes of anemia: chronic disease, other (6) CAD (coronary artery disease) Status: Chronic Assessment and plan: She has not experienced chest pain. Consider event monitor at discharge. I feel that this is best treated medically. Current Visit: No Cardiology - PN: Subj Interval history: Ms. Castellon is awake and alert today. She does not remember any of the episodes that occurred to being brought here. I reviewed her transthoracic echo shows a small posterior fusion she has mild pulmonary hypertension right ventricular cell pressure estimated 39 mmHg otherwise a normal echo with normal ejection fraction and normal wall motion. Her troponins are stagnant Adrián elevated as would be expected for her renal insufficiency. I have nothing further to add at this time. Exam (Progress Note) - Constitutional Vitals: Period Temp Pulse Resp BP Sys/Reynolds Pulse Ox Last 24 Hr 97.9 F-100.5 F 67-104 14-30 83-181/41-104 96-100 General appearance: normal weight - Head Head exam: Present: normal inspection - Eye Eye exam: Present: EOMI Pupils: Present: MARIANO - Respiratory Respiratory exam: Present: clear to auscultation bilaterally - Cardiovascular Cardiovascular exam: Present: regular rate and rhythm - GI/Abdominal GI/Abdominal exam: Present: normal bowel sounds - Extremities Exam Extremities exam: Present: normal inspection - Neurological Exam Neurological exam: Present: alert, oriented X3 - Psychiatric Psychiatric exam: Present: normal affect, normal mood - Skin Skin exam: Present: normal color, warm, dry Result/EKG - Labs CBC & BMP: 08/03/16 02:32 08/03/16 02:32 Labs: Laboratory Results - last 24 hr 08/03/16 08/03/1617 07:07 11:05 17:34 POC Glucose 82 85 Total Creatine Kinase 68 CK-MB (CK-2) 1.4 Troponin I 0.526 H 08/04/16 08/04/16 00:29 05:58 POC Glucose 82 92 Total Creatine Kinase CK-MB (CK-2) Troponin I
[2016-08-04] MEDS: ISOSORBIDE MONONITRATE 30 MG TABLET PO SCH (09:18)
[2016-08-04] MEDS: CINACALCET 30 MG TABLET PO SCH (09:19)
[2016-08-04] MEDS: FAMOTIDINE 20 MG TABLET PO SCH (09:20)
[2016-08-04] MEDS: CALCIUM ACETATE 667 MG CAPSULE PO SCH ×3 (09:20→18:39)
[2016-08-04] MEDS: CARVEDILOL 6.25 MG TABLET PO SCH ×2 (09:21→21:02)
[2016-08-04] MEDS: PIPERACILLIN/TAZOBACTAM 3,375 MG in SODIUM CHLORIDE 0.9% 100 ML IV SCH ×2 (09:21→21:00)
--- NOTE | 2016-08-04 09:47 | Hospitalist Progress Note ---
Assessment and Plan (1) Pulmonary edema Status: Acute Assessment and plan: 1)pulmonary edema- resolved after dialysis. remove hydrocodone from her home med list. Also, she does not have cardiomyopathy, or systolic heart failure per cardiology adn her recent echo. She has mild diastolic dysfunction. No acute coronary syndrome per cards. 2)ESRD- HD per Dr Jackson. To the floor today. DR Jackson to discuss removing Tessio with DR Buchanan. Current Visit: Yes (2) End stage renal disease on dialysis Status: Chronic Current Visit: No Hospitalist: Subjective Interval history: Mrs Castellon looks great this morning off the vent since yesterday afternoon. She is not sure what happened to her- no new meds, does not take the hydrocodone on her home list. She and I discussed it with Dr Jackson also at the bedside and the most likely explanation is that she got volume overloaded due to her renal disease. I also raised the question of her TEssio which has been in place a while though she has been using her left forearm access for HD. Exam - Constitutional Vitals: Period Temp Pulse Resp BP Sys/Reynolds Pulse Ox Last 24 Hr 97.9 F-100.5 F 67-104 14-30 83-181/41-104 96-100 General appearance: normal weight, no acute distress - Head Head exam: Present: normocephalic, atraumatic - Eye Eye exam: Present: EOMI. Absent: scleral icterus Pupils: Present: MARIANO - Respiratory Respiratory exam: Present: clear to auscultation bilaterally - Cardiovascular Cardiovascular exam: Present: regular rate and rhythm - GI/Abdominal GI/Abdominal exam: Present: normal bowel sounds, soft. Absent: tenderness - Extremities Exam Extremities exam: Absent: edema Results - Labs CBC & BMP: 08/03/16 02:32 08/03/16 02:32 Lab Results: I have reviewed the past 24 hour labs
--- NOTE | 2016-08-04 13:05 | Operative Note ---
Date of procedure: 08/04/16 Pre-op diagnosis: ESRD, dialyzing through permanent access Post-op diagnosis: same Procedure: Procedure performed: Removal of right internal jugular tunneled hemodialysis catheter under local Procedure in detail: With the patient lying supine in her hospital bed the right neck and chest were prepped and draped in usual sterile fashion including the existing catheter. After procedural pause local anesthetic infiltrated in the skin and subcutaneous tissue around the catheter exit site. 11 blade scalpel used to perform an incision around the catheter exit site and dissection carried through the subcutaneous tissue. The cuff was dissected free from the surrounding tissue and the catheter removed in its entirety. 2-0 nylon suture placed to close the incision. Sterile dressings applied. Patient tolerated the procedure well. There is no hematoma or bleeding post procedure. Anesthesia: local Surgeon / Physician: Gorge Buchanan Estimated blood loss: other (Less than 5 cc) Specimens: none sent Condition: stable Disposition: PACU Results - Labs CBC & BMP: 08/03/16 02:32 08/03/16 02:32 Discharge Plan - Discharge Medications No Action Famotidine 20 mg PO BID Pantoprazole Tab [Protonix Tab] 40 mg PO DAILY #90 tablet NS Cinacalcet HCl [Sensipar] 60 mg PO DAILY Calcium Acetate 667 mg PO TID W/MEALS amLODIPine [Norvasc] 2.5 mg PO DAILY Isosorbide Mononitrate [Imdur] 15 mg PO DAILY #60 tablet Hydrocodone/Acetaminophen [[place] 7.5-325 Tablet] 1 each PO Q4-6H PRN PRN Reason: Pain Atorvastatin [Lipitor] 20 mg PO BEDTIME #60 tablet Carvedilol [Coreg] 6.25 mg PO BID #90 tablet NS hydrALAZINE TAB [Apresoline Tab] 25 mg PO TID #90 tablet - Follow Up or Referral - Forms/Instructions
--- NOTE | 2016-08-04 16:24 | Pulmonology Progress Note ---
Pulmonary - PN: Subj Interval history: This 65-year-old lady was admitted with decreased level of consciousness and required intubation. She was able to be extubated yesterday and mental status much improved. She had pulmonary edema felt to be due to fluid overload related to her chronic renal disease. Now after dialysis she is improved and is been moved to the floor. Exam (Progress Note) - Constitutional Vitals: Period Temp Pulse Resp BP Sys/Reynolds Pulse Ox Last 24 Hr 97.9 F-99.9 F 67-99 17-25 83-138/41-62 96-100 Exam: Patient responsive. Vital signs normal. No fever. Pupils react to light. Throat is clear. Neck supple no bruits. Chest reveals some minimal crackles in the bases. Heart normal rate rhythm no murmurs. Abdomen soft nontender no masses. Extremities no clubbing cyanosis edema and calves nontender. Results - Labs CBC & BMP: 08/03/16 02:32 08/03/16 02:32 Lab Results: I have reviewed the past 24 hour labs - Diagnostic Findings Procedure: Chest x-ray: image reviewed by me (Interstitial edema is much less on today's x-ray compared to yesterday.) Assessment and Plan (1) Acute respiratory failure Status: Acute Assessment and plan: Patient has been extubated and has acceptable O2 sats on nasal oxygen. Current Visit: No (2) ESRD (end stage renal disease) on dialysis Status: Chronic Assessment and plan: It appears that just one dialysis has removed most of the fluid from her lungs. Current Visit: No (3) Pulmonary edema Status: Acute Assessment and plan: Improved but still has some interstitial edema in the lower lobes on today's x- ray. Current Visit: Yes
[2016-08-04] MEDS: ATORVASTATIN 20 MG TABLET PO SCH (21:02)
[2016-08-05] MEDS: INSULIN REGULAR 100 UNIT/ML SUBCUT SCH ×4 (01:25→19:10)
[2016-08-05 04:29] LABS: Basophils % 0.3 % (0.0-0.8); Eosinophils # 0.1 10*3/uL (0.0-0.87); Eosinophils % 1.3 % (0.00-10.9); Hematocrit 21.6 VOL% (35.7-47.0); Hemoglobin 7.2 GM/DL (12.0-16.0); Immature Granulocytes % 1.1 %; Immature Granulocytes Absolute 0.11 #; Lymphocytes # 1.8 10*3/uL (1.4-4.0); Lymphocytes % 18.8 % (21.3-54.2); Mean Corpuscular HGB Conc 33.3 GM/DL (32-36); Mean Corpuscular Hemoglobin 24 PG (27-34); Mean Corpuscular Volume 72.2 FL (87-102); Mean Platelet Volume 10.3 FL (9.6-12.0); Monocytes # 1.3 10*3/uL (0.11-0.8); Monocytes % 13.4 % (1.7-12.7); Neutrophils # 6.3 10*3/uL (1.4-7.4); Neutrophils % 65.1 % (38.7-73.9); Platelet Count 355 T/CUMM (130-400); Red Blood Count 2.99 MC/CUMM (3.8-5.5); Red Cell Distribution Width 18.1 % (9.3-17.3); White Blood Count 9.7 T/CUMM (4-12)
[2016-08-05 05:29] LABS: Calcium 7.6 MG/DL (8.5-10.1); Osmolality,Calculated 276.1 MOS/KG (273-304)
[2016-08-05] MEDS: CARVEDILOL 6.25 MG TABLET PO SCH ×2 (09:02→20:37)
[2016-08-05] MEDS: ISOSORBIDE MONONITRATE 30 MG TABLET PO SCH (09:02)
[2016-08-05] MEDS: FAMOTIDINE 20 MG TABLET PO SCH (09:02)
[2016-08-05] MEDS: CALCIUM ACETATE 667 MG CAPSULE PO SCH ×3 (09:02→17:58)
[2016-08-05] MEDS: CINACALCET 30 MG TABLET PO SCH (09:02)
[2016-08-05] MEDS: PIPERACILLIN/TAZOBACTAM 3,375 MG in SODIUM CHLORIDE 0.9% 100 ML IV SCH (09:03)
--- NOTE | 2016-08-05 09:12 | Pulmonology Progress Note ---
Pulmonary - PN: Subj Interval history: This 65-year-old lady was admitted with decreased level of consciousness and required intubation. She was able to be extubated yesterday and mental status much improved. She had pulmonary edema felt to be due to fluid overload related to her chronic renal disease. Now after dialysis she is improved and is been moved to the floor. 08/05/2016 patient much more alert now. Asking about going home. Last chest x- ray 2 days ago still looks wet. She has been extubated since then and has had dialysis. Need to recheck x-ray tomorrow. She has 1 of 2 blood cultures positive for gram-negative rods. Currently on Zosyn which hopefully would cover that. Await final identification. Exam (Progress Note) - Constitutional Vitals: Period Temp Pulse Resp BP Sys/Reynolds Pulse Ox Last 24 Hr 97.4 F-100.6 F 74-87 15-20 105-160/40-72 96-100 Exam: Patient responsive. Vital signs normal. No fever. Pupils react to light. Throat is clear. Neck supple no bruits. Chest sounds clear today. Heart normal rate rhythm no murmurs. Abdomen soft nontender no masses. Extremities no clubbing cyanosis edema and calves nontender. Results - Labs CBC & BMP: 08/05/16 03:51 08/05/16 03:51 Lab Results: I have reviewed the past 24 hour labs Assessment and Plan (1) Acute respiratory failure Status: Acute Assessment and plan: Patient has been extubated and has acceptable O2 sats on nasal oxygen. 08/05/2016 patient seems comfortable on room air and oxygen saturations in the 90s now. Current Visit: No (2) ESRD (end stage renal disease) on dialysis Status: Chronic Assessment and plan: It appears that just one dialysis has removed most of the fluid from her lungs. 08/05/2016 continuing with dialysis. Current Visit: No (3) Pulmonary edema Status: Acute Assessment and plan: Improved but still has some interstitial edema in the lower lobes on today's x- ray. 08/05/2016 by physical exam her pulmonary edema has resolved. Will recheck x- ray in the morning. Current Visit: Yes
--- NOTE | 2016-08-05 09:26 | Hospitalist Progress Note ---
Assessment and Plan (1) Positive blood culture Status: Acute Assessment and plan: 1 of 2 positive for gram negative rods Currently on zosyn Repeating blood cultures F/u speciation Current Visit: Yes (2) Acute respiratory failure Status: Resolved Assessment and plan: Now extubated Current Visit: No (3) ESRD (end stage renal disease) on dialysis Status: Chronic Assessment and plan: Per nephrology Current Visit: No (4) Hypertension Status: Chronic Assessment and plan: Continue home meds Current Visit: No (5) Pulmonary edema Status: Resolved Assessment and plan: Improving with HD Current Visit: No Hospitalist: Subjective Interval history: No acute events overnight. Appears comfortable sitting in chair. HD today. She has positive blood cultures Exam - Constitutional Vitals: Period Temp Pulse Resp BP Sys/Reynolds Pulse Ox Last 24 Hr 97.4 F-100.6 F 74-87 15-20 105-160/40-72 96-100 General appearance: normal weight - Head Head exam: Present: normocephalic, atraumatic - Eye Eye exam: Present: EOMI Pupils: Present: MARIANO - ENT ENT exam: Present: normal exam - Neck Neck exam: Present: normal inspection - Respiratory Respiratory exam: Present: clear to auscultation bilaterally. Absent: rhonchi, wheezes - Cardiovascular Cardiovascular exam: Present: regular rate and rhythm - GI/Abdominal GI/Abdominal exam: Present: normal bowel sounds, soft. Absent: tenderness, rebound - Extremities Exam Extremities exam: Present: normal inspection - Back Exam Back exam: Present: normal inspection - Neurological Exam Neurological exam: Present: alert, oriented X3 - Psychiatric Psychiatric exam: Present: normal affect, normal mood - Skin Skin exam: Present: warm, intact Results - Labs CBC & BMP: 08/05/16 03:51 08/05/16 03:51
--- NOTE | 2016-08-05 10:12 | Event Note ---
Pt with HD catheter removed from right IJ yesterday. No pain or bleeding. No evidence of hematoma, abscess or cellulitis. New clean dressing applied. F/u Dr. Buchanan in 2 wk. Call with any problems or concerns.
[2016-08-05] MEDS: PROPOFOL 1,000 MG/100 ML BOTTLE IV SCH (10:48)
--- NOTE | 2016-08-05 11:36 | Cardiology Progress Note ---
Assessment and Plan (1) Elevated troponin Status: Acute Assessment and plan: The patient has a chronic stable mild elevation of cardiac troponin which I think is secondary to her end-stage renal disease. She does not have any chest pain and has normal left ventricular systolic function on echo. She is improving rapidly each day. At this point I do not think any further cardiac workup is required. I am going to drop off her case at this time. Please call if I can be of further assistance. Current Visit: Yes (2) Pulmonary edema Status: Acute Assessment and plan: This is resolved with dialysis/volume removal. Current Visit: Yes (3) Congestive heart failure Status: Acute Assessment and plan: The patient had volume overload, which is probably primarily secondary to her end-stage renal disease. She has some mild diastolic dysfunction. She has normal left ventricular systolic function. I anticipate that she will continue to do well with volume control with dialysis. Current Visit: No Qualifiers: Congestive heart failure chronicity: acute on chronic (4) Anemia Status: Chronic Current Visit: No Qualifiers: Other causes of anemia: chronic disease, other (5) CAD (coronary artery disease) Status: Chronic Assessment and plan: Clinically she is free of any anginal symptoms and has preserved left ventricular systolic function. Continue medical management. Current Visit: No (6) ESRD (end stage renal disease) on dialysis Status: Chronic Current Visit: No (7) Hypertension Status: Chronic Current Visit: No Cardiology - PN: Subj Interval history: The patient is feeling much better today. She is improving significantly each day. She denies any new complaints. She does not have any cardiac symptoms such as chest pain, palpitations, or dyspnea. Her echocardiogram shows normal left ventricular systolic function and wall motion. She has a chronic mild elevation of troponin which is not unexpected given her renal insufficiency. Current Medications Atorvastatin Calcium (Lipitor) 20 mg PO BEDTIME [facility] Last Admin: 08/04/16 21:02 Dose: 20 mg Calcium Acetate (Phoslo) 667 mg PO TID W/MEALS [facility] Last Admin: 08/05/16 09:02 Dose: 667 mg Carvedilol (Coreg) 6.25 mg PO BID [facility] Last Admin: 08/05/16 09:02 Dose: 6.25 mg Cinacalcet (Sensipar) 60 mg PO DAILY [facility] Last Admin: 08/05/16 09:02 Dose: 60 mg Dextrose/Water (D50) 25 gm IV PRN PRN PRN Reason: Hypoglycemia with IV access Famotidine (Pepcid Tab) 20 mg PO DAILY [facility] Last Admin: 08/05/16 09:02 Dose: 20 mg Glucagon () 1 mg IM PRN PRN PRN Reason: Hypoglycemia w/o IV access Heparin Sodium (Porcine) () 2,000 unit IV .FOR DIALYSIS [facility] Hydralazine HCl (Apresoline Tab) 50 mg PO TID [facility] Last Admin: 08/05/16 09:02 Dose: 50 mg Hydralazine HCl (Apresoline Inj) 10 mg IV Q6H PRN PRN Reason: Hypertension Piperacillin Sod/Tazobactam (Sod 3,375 mg/ Sodium Chloride) 100 mls @ 25 mls/ hr IV Q12H [facility] Last Admin: 08/05/16 09:03 Dose: 25 mls/hr Insulin Human Regular (Humulin R) 0 unit SUBCUT Q6HR [facility] PRN Reason: Protocol Last Admin: 08/05/16 06:16 Dose: Not Given Isosorbide Mononitrate (Imdur) 15 mg PO DAILY [facility] Last Admin: 08/05/16 09:02 Dose: 15 mg Exam (Progress Note) - Constitutional Vitals: Period Temp Pulse Resp BP Sys/Reynolds Pulse Ox Last 24 Hr 97.4 F-100.6 F 78-87 15-20 105-160/40-72 96-100 Exam: General: Appears well developed, well nourished, no apparent distress HEENT: Normocephalic, atraumatic Neck: Supple Neck, Midline Trachea, left IJ in place Cardiac: Regular rhythm, 2 to 3/6 systolic murmur, no gallop, no rub Lungs: Clear to auscultation, No Wheeze, Rales, Rhonchi Neuro: Cranial Nerve 2-12 Intact, Motor Function Grossly Intact Abdomen: Soft, Active Bowel Sounds, No Masses, No Pulsations/Bruits Skin: Normal color, no rash Extremities: No Clubbing, No Cyanosis, No Edema, Normal Upper Extr. Pulses Musculoskeletal: No acute abnormality noted Psychiatric: The patient does not appear to be anxious or depressed Result/EKG - Labs CBC & BMP: 08/05/16 03:51 08/05/16 03:51 Lab Results: I have reviewed the past 24 hour labs Labs: Laboratory Results - last 24 hr 08/04/16 08/04/16 08/04/16 18:48 19:54 23:12 WBC RBC Hgb Hct MCV MCH MCHC RDW Plt Count MPV Neut % (Auto) Lymph % (Auto) [place] % (Auto) Eos % (Auto) Baso % (Auto) Neut # (Auto) Lymph # (Auto) [place] # (Auto) Eos # (Auto) Baso # (Auto) Immature Gran % Nucleated RBC % Immature Gran # Nucleated RBCs # Sodium Potassium Chloride Carbon Dioxide Anion Gap BUN Creatinine GFR Calculation BUN/Creatinine Ratio Glucose POC Glucose 127 H 122 H 111 H Calculated Osmolality Calcium 08/05/16 08/05/16 08/05/16 03:51 03:51 05:31 WBC 9.7 D RBC 2.99 L Hgb 7.2 L Hct 21.6 L MCV 72.2 L MCH 24 L MCHC 33.3 RDW 18.1 H Plt Count 355 D MPV 10.3 Neut % (Auto) 65.1 Lymph % (Auto) 18.8 L [place] % (Auto) 13.4 H Eos % (Auto) 1.3 Baso % (Auto) 0.3 Neut # (Auto) 6.3 Lymph # (Auto) 1.8 [place] # (Auto) 1.3 H Eos # (Auto) 0.1 Baso # (Auto) 0.0 Immature Gran % 1.1 Nucleated RBC % 0.0 Immature Gran # 0.11 Nucleated RBCs # 0.00 Sodium 135 L Potassium 4.0 Chloride 100 Carbon Dioxide 25 Anion Gap 14.0 BUN 35 H Creatinine 7.60 H GFR Calculation 6 BUN/Creatinine Ratio 4.00 L Glucose 85 POC Glucose 95 Calculated Osmolality 276.1 Calcium 7.6 L - EKG EKG results: interpreted by me Specialty Discharge - Follow Up or Referrals Follow up with: Gorge Buchanan MD [Physician] - 08/18/16 10:00 am
--- NOTE | 2016-08-05 13:08 | Dialysis Note ---
Dialysis Note - Dialysis Note Patient seen on hemodialysis, she is tolerating this well will continue her treatment unchanged.
--- NOTE | 2016-08-05 13:35 | Infectious Disease Consult ---
Assessment and Plan (1) Serratia septicemia Status: Acute Assessment and plan: IT is quite possible that her dialysis catheter is the source of this septicemia. Fortunately it has now been removed. Echo on admission without mention of valvular vegetations. THe patient had negative blood cultures about 2 weeks ago, so the current bacteremia was not prolonged. REcommendations: 1. Can de-escalate from Zosyn to ceftriaxone 2g daily 2. F/U repeat blood cultures sent off today 3. Given how senstive the Serratia is, the patient will be able to go home on oral ciprofloxacin, renally dosed at 500mg daily 4. Patient will need antibiotic Tx for 2 weeks from date of first set of negative blood cultures Thank you very much for the consult. Will follow. Current Visit: Yes (2) Congestive heart failure Status: Acute Current Visit: No Qualifiers: Congestive heart failure chronicity: acute on chronic (3) ESRD (end stage renal disease) on dialysis Status: Chronic Current Visit: No (4) Hypertension Status: Chronic Current Visit: No History of Present Illness Chief complaint: Positive blood cultures History of present illness: Ms. Castellon is a 65 year old female admitted 2 days ago after she was found unresponsive at home. She was intubated and admitted to ICU but was extubated within 24hrs. Blood cultures drawn on admission came back positive for Serratia in 2/2 sets. Patient has been on dialysis since last October when a tunnelled catheter was placed, however she has not used the catheter for several mths. She never noticed any pus draining around it. She has been using Lt arm AV fistula. Patient denies fever or any other acute problems prior to loosing consciousness. She has been alert and orient since extubation. She had intermittent low grade fever since admission, last being 100.6 yesterday. No cough or Sob, no N, V, D. Home Medications Medication Instructions Recorded Confirmed Type Famotidine 20 mg PO BID 07/23/15 08/04/16 History Pantoprazole Tab [Protonix Tab] 40 mg PO DAILY #90 tablet NS 09/30/15 08/04/16 Rx Calcium Acetate 667 mg PO TID W/MEALS 06/30/16 08/04/16 History Cinacalcet HCl [Sensipar] 60 mg PO DAILY 06/30/16 08/04/16 History amLODIPine [Norvasc] 2.5 mg PO DAILY 06/30/16 08/04/16 History Atorvastatin [Lipitor] 20 mg PO BEDTIME #60 tablet 07/24/16 08/04/16 Rx Carvedilol [Coreg] 6.25 mg PO BID #90 tablet NS 07/24/16 08/04/16 Rx Isosorbide Mononitrate [Imdur] 15 mg PO DAILY #60 tablet 07/24/16 08/04/16 Rx hydrALAZINE TAB [Apresoline Tab] 25 mg PO TID #90 tablet 07/24/16 08/04/16 Rx Hydrocodone/Acetaminophen [Depauw 1 each PO Q4-6H PRN 08/03/16 08/04/16 History 7.5-325 Tablet] Allergies Allergy/AdvReac Type Severity Reaction Status Date / Time ASHER Inhibitors Allergy Unknown/Unable Verified 07/23/15 20:00 to obtain aspirin Allergy Unknown/Unable Verified 07/23/15 20:00 to obtain ibuprofen Allergy Unknown/Unable Verified 07/23/15 20:00 to obtain IV DYE Allergy Severe ANAPHYLAXIS Uncoded 06/30/16 10:50 12 point system: reviewed and no additional remarkable complaints except as stated (per HPI) Medical,Surgical,& Family Hx - Medical History Cardio: History of: CHF (The patient had a low EF on last admission by echo LV gram showed better EF), CAD (Two-vessel coronary artery disease (LAD and RCA) [facility] 07/22/16), Hypertension No history of: [place] Neurology: No history of: Brain Aneurysm, Cerebral Hemorrhage, Cerebrovascular Accident , Cerebral Palsy, Dementia, Migraine, Multiple Sclerosis, Parkinson's Disease, Peripheral Neuropathy, Seizures, TIA, Vertigo, Neurologocal Cancer HEENT: History of: Eye Problem (GLASS), HEENT Problems (chronic sinuse issues) Endocrine: History of: Diabetes Mellitus (NIDDM) Respiratory: No history of: Respiratory Problems Renal: History of: Dialysis (TUNNEL CATHETER RIGHT UPPER CHEST AV FISTULA LEFT ARM), Renal Failure Gastrointestinal: History of: GERD, Gastrointestinal Bleed (diagnosed on admisssion) Musculoskeletal: History of: Musculoskeletal Problems (ARTHRITIS) Hematology: History of: Anemia - Surgical History Cardiac Surgeries: Patient Denies: Cardiac Surgery Thoracic Surgeries: Patient denies;: Organ Transplant Neurologic Surgeries: Patient denies: Brain Aneurysm, Cerebral Hemorrhage, Neurologic Surgery Abdominal Surgeries: Surgical HX of: Colonoscopy, EGD Orthopedic Surgeries: Surgical HX of;: Orthopedic Surgery (right shoulder surgery 2012 rotary cuff with pins and screws) - Family History Family History: Reports;: Family Cancer (mother), Family Diabetes (brother), Family Heart Disease (sister dies of CHF), Family Hypertension, Family Stroke ( 2 brother) - Social History Smoking Status: Current every day smoker Frequency of Alcohol Use: Frequently Type of Drug Use: None Infectious Disease Exam H&P - Constitutional Vitals: Vital Signs Temp Pulse Resp BP Pulse Ox 98.2 F 83 16 117/54 96 08/05/16 11:15 08/05/16 11:15 08/05/16 11:15 08/05/16 11:15 08/05/16 11:15 Intake and Output 08/04/16 08/05/16 08/05/16 23:59 07:59 15:59 Intake Total 240 / 240 400 / 400 360 / 360 Output Total 500 / 500 Balance 240 / 240 -100 / -100 360 / 360 Intake: IV 100 / 100 Zosyn 3,375 mg In Ns 100 100 / 100 ml @ 25 mls/hr IV Q12H [facility] Rx#:[id number] Oral 240 / 240 300 / 300 360 / 360 Output: Urine 200 / 200 Stool 300 / 300 Other: Voiding Method Dialysis Patient Toilet # Voids 1 # Bowel Movements 1 Weight 71.668 kg Patient Weight 08/05/16 23:59 Weight 71.668 kg Exam: General: Patient comfortable, was getting dialysis when I saw her HEENT: Mucous membranes pink and moist, anicteric acyanotic, MARIANO, no oropharyngeal exudates, but bruised lower lip on Left from recent fall Neck: Supple, no thyroid gland enlargement, no lymphadenopathy Respiratory system: Breath sounds vesicular, no crepitations or wheezes Cardiovascular: Normal S1 and S2, no murmurs appreciated Abdomen: Normal bowel sounds, soft nontender throughout, no organomegaly or mass Genitourinary: No suprapubic pain or bladder distention Extremities: no edema Skin: No rash Reports - Labs CBC & BMP: 08/05/16 03:51 08/05/16 03:51 Labs: Laboratory Results - last 24 hr 08/04/16 08/04/16 08/04/16 18:48 19:54 23:12 WBC RBC Hgb Hct MCV MCH MCHC RDW Plt Count MPV Neut % (Auto) Lymph % (Auto) [place] % (Auto) Eos % (Auto) Baso % (Auto) Neut # (Auto) Lymph # (Auto) [place] # (Auto) Eos # (Auto) Baso # (Auto) Immature Gran % Nucleated RBC % Immature Gran # Nucleated RBCs # Sodium Potassium Chloride Carbon Dioxide Anion Gap BUN Creatinine GFR Calculation BUN/Creatinine Ratio Glucose POC Glucose 127 H 122 H 111 H Calculated Osmolality Calcium 08/05/16 08/05/16 08/05/16 03:51 03:51 05:31 WBC 9.7 D RBC 2.99 L Hgb 7.2 L Hct 21.6 L MCV 72.2 L MCH 24 L MCHC 33.3 RDW 18.1 H Plt Count 355 D MPV 10.3 Neut % (Auto) 65.1 Lymph % (Auto) 18.8 L [place] % (Auto) 13.4 H Eos % (Auto) 1.3 Baso % (Auto) 0.3 Neut # (Auto) 6.3 Lymph # (Auto) 1.8 [place] # (Auto) 1.3 H Eos # (Auto) 0.1 Baso # (Auto) 0.0 Immature Gran % 1.1 Nucleated RBC % 0.0 Immature Gran # 0.11 Nucleated RBCs # 0.00 Sodium 135 L Potassium 4.0 Chloride 100 Carbon Dioxide 25 Anion Gap 14.0 BUN 35 H Creatinine 7.60 H GFR Calculation 6 BUN/Creatinine Ratio 4.00 L Glucose 85 POC Glucose 95 Calculated Osmolality 276.1 Calcium 7.6 L 08/05/16 11:23 WBC RBC Hgb Hct MCV MCH MCHC RDW Plt Count MPV Neut % (Auto) Lymph % (Auto) [place] % (Auto) Eos % (Auto) Baso % (Auto) Neut # (Auto) Lymph # (Auto) [place] # (Auto) Eos # (Auto) Baso # (Auto) Immature Gran % Nucleated RBC % Immature Gran # Nucleated RBCs # Sodium Potassium Chloride Carbon Dioxide Anion Gap BUN Creatinine GFR Calculation BUN/Creatinine Ratio Glucose POC Glucose 115 H Calculated Osmolality Calcium - Reports Microbiology: Microbiology 08/03/16 02:42 Blood Culture - Final Blood Serratia marcescens 08/03/16 02:32 Blood Culture - Final Blood Serratia marcescens - Diagnostic Findings Procedure: Ultrasound: report reviewed by me (echo (TTE) on 08/03 without mention of vegetations) Specialty Discharge - Follow Up or Referrals Follow up with: Gorge Buchanan MD [Physician] - 08/18/16 10:00 am
[2016-08-05] MEDS ORDERED: cefTRIAXone 2,000 MG in SODIUM CHLORIDE 0.9% 100 ML IV SCH (14:00)
[2016-08-05] MEDS: ATORVASTATIN 20 MG TABLET PO SCH (20:37)
[2016-08-06] MEDS ORDERED: HYDROCORTISONE 1% CREAM 28 GM TUBE TOP PRN (00:27)
[2016-08-06] MEDS: INSULIN REGULAR 100 UNIT/ML SUBCUT SCH ×3 (00:49→12:10)
[2016-08-06 04:59] LABS: Basophils % 0.3 % (0.0-0.8); Eosinophils # 0.2 10*3/uL (0.0-0.87); Eosinophils % 2.2 % (0.00-10.9); Hematocrit 23.8 VOL% (35.7-47.0); Hemoglobin 7.7 GM/DL (12.0-16.0); Immature Granulocytes % 1.4 %; Immature Granulocytes Absolute 0.12 #; Lymphocytes # 1.9 10*3/uL (1.4-4.0); Lymphocytes % 21.9 % (21.3-54.2); Mean Corpuscular HGB Conc 32.4 GM/DL (32-36); Mean Corpuscular Hemoglobin 24 PG (27-34); Mean Corpuscular Volume 72.6 FL (87-102); Mean Platelet Volume 10.6 FL (9.6-12.0); Monocytes # 1.1 10*3/uL (0.11-0.8); Monocytes % 12.4 % (1.7-12.7); Neutrophils # 5.3 10*3/uL (1.4-7.4); Neutrophils % 61.8 % (38.7-73.9); Platelet Count 365 T/CUMM (130-400); Red Blood Count 3.28 MC/CUMM (3.8-5.5); Red Cell Distribution Width 18.3 % (9.3-17.3); White Blood Count 8.6 T/CUMM (4-12)
[2016-08-06 05:28] LABS: Calcium 8.1 MG/DL (8.5-10.1); Magnesium 2.2 MG/DL (1.8-2.4); Osmolality,Calculated 275.7 MOS/KG (273-304); Potassium 3.9 MMOL/L (3.5-5.1)
--- NOTE | 2016-08-06 07:48 | XRay Report ---
XR chest 2V Indication: CHF Comparison: Chest x-ray 08/03/2016. Technique: PA and lateral chest x-ray was performed. Findings: Much improved appearance of the lung parenchyma is demonstrated bilaterally within the mid to lower chest. Stranding opacities remaining overlying the lateral aspect of the right hemidiaphragm and present within the left lung base may reflect atelectatic change. Heart size is borderline. Pulmonary vasculature appears minimally prominent with mild cephalization that excluded. Hemodialysis catheter has been removed. Endotracheal tube and NG tube have been removed. Bones and soft tissues are stable. Impression: 1. Much improved appearance of the lung parenchyma suggests improving congestive heart failure/pulmonary edema. Residual atelectatic stranding is noted in the lung bases. 08/06/2016 7:44 AM PROCEDURE INTERPRETED AT [facility] DEPARTMENT OF RADIOLOGY Final Report Signed by: Dr. Eduardo Fay
--- NOTE | 2016-08-06 09:29 | Pulmonology Progress Note ---
Pulmonary - PN: Subj Interval history: This 65-year-old lady was admitted with decreased level of consciousness and required intubation. She was able to be extubated yesterday and mental status much improved. She had pulmonary edema felt to be due to fluid overload related to her chronic renal disease. Now after dialysis she is improved and is been moved to the floor. 08/05/2016 patient much more alert now. Asking about going home. Last chest x- ray 2 days ago still looks wet. She has been extubated since then and has had dialysis. Need to recheck x-ray tomorrow. She has 1 of 2 blood cultures positive for gram-negative rods. Currently on Zosyn which hopefully would cover that. Await final identification. 08/06/2016 patient doing much better and is afebrile. Chest x-ray looks much improved. From a pulmonary standpoint she is stable and I will sign off. Exam (Progress Note) - Constitutional Vitals: Period Temp Pulse Resp BP Sys/Reynolds Pulse Ox Last 24 Hr 98.2 F-99.0 F 79-92 16-20 117-145/54-74 96-100 Exam: Patient responsive. Vital signs normal. No fever. Pupils react to light. Throat is clear. Neck supple no bruits. Chest sounds clear today. Heart normal rate rhythm no murmurs. Abdomen soft nontender no masses. Extremities no clubbing cyanosis edema and calves nontender. Results - Labs CBC & BMP: 08/06/16 04:26 08/06/16 04:26 Lab Results: I have reviewed the past 24 hour labs - Diagnostic Findings Procedure: Chest x-ray: image reviewed by me (Chest x-ray is improved. Only some minimal basilar atelectasis. The interstitial edema has resolved.) Assessment and Plan (1) Acute respiratory failure Status: Resolved Assessment and plan: Patient has been extubated and has acceptable O2 sats on nasal oxygen. 08/05/2016 patient seems comfortable on room air and oxygen saturations in the 90s now. 08/06/2016 this has resolved. Current Visit: No (2) ESRD (end stage renal disease) on dialysis Status: Chronic Assessment and plan: It appears that just one dialysis has removed most of the fluid from her lungs. 08/05/2016 continuing with dialysis. 08/06/2016 continuing dialysis per renal. Current Visit: No (3) Pulmonary edema Status: Acute Assessment and plan: Improved but still has some interstitial edema in the lower lobes on today's x- ray. 08/05/2016 by physical exam her pulmonary edema has resolved. Will recheck x- ray in the morning. 08/06/2016 chest x-ray shows resolution of pulmonary edema. Current Visit: Yes (4) Serratia septicemia Status: Acute Assessment and plan: This is been addressed by infectious disease. Patient will go home on oral Cipro. Removing the line has likely taken care of the problem. Current Visit: Yes Specialty Discharge - Follow Up or Referrals Follow up with: Gorge Buchanan MD [Physician] - 08/18/16 10:00 am
--- NOTE | 2016-08-06 09:34 | Infectious Disease Progress ---
Assessment and Plan (1) Serratia septicemia Status: Acute Assessment and plan: IT is quite possible that her dialysis catheter is the source of this septicemia. Fortunately it has now been removed. Echo on admission without mention of valvular vegetations. THe patient had negative blood cultures about 2 weeks ago, so the current bacteremia was not prolonged. REcommendations: She can go home today on ciprofloxacin 500 mg orally daily for 14 days Current Visit: Yes (2) Congestive heart failure Status: Acute Current Visit: No Qualifiers: Congestive heart failure chronicity: acute on chronic (3) ESRD (end stage renal disease) on dialysis Status: Chronic Current Visit: No (4) Hypertension Status: Chronic Current Visit: No Infectious Disease - PN: Subj Interval history: No fever, feels great and wants to go home. Infectious Disease Exam (PN) - Constitutional Vitals: Temp Pulse Resp BP Pulse Ox 98.6 F 80 16 145/74 100 08/06/16 07:12 08/06/16 07:12 08/06/16 07:12 08/06/16 07:12 08/06/16 07:12 General appearance: normal weight Exam: General appearance: no acute distress, sitting in chair - Eye Eye exam: Present: EOMI. no icterus Pupils: Present: MARIANO - ENT ENT exam: no oropharyhgeal exudates, decreased swelling to bruise on right side of lower lip - Respiratory Respiratory exam: vesicular BS, no crepitations or wheezes - Cardiovascular Cardiovascular exam: regular rate and rhythm, no murmurs - GI/Abdominal GI/Abdominal exam: normal bowel sounds, soft, non-tender, no organomegaly or mass - Extremities Exam Extremities exam: no edema - Skin Skin exam: no rash Results - Labs CBC & BMP: 08/06/16 04:26 08/06/16 04:26 Lab Results: I have reviewed the past 24 hour labs (Repeat blood cultures negative to date) Specialty Discharge - Follow Up or Referrals Follow up with: Gorge Buchanan MD [Physician] - 08/18/16 10:00 am
[2016-08-06] MEDS: CALCIUM ACETATE 667 MG CAPSULE PO SCH ×2 (09:37→12:41)
[2016-08-06] MEDS: CINACALCET 30 MG TABLET PO SCH (09:37)
[2016-08-06] MEDS: FAMOTIDINE 20 MG TABLET PO SCH (09:38)
[2016-08-06] MEDS: ISOSORBIDE MONONITRATE 30 MG TABLET PO SCH (09:38)
[2016-08-06] MEDS: CARVEDILOL 6.25 MG TABLET PO SCH (09:38)
[2016-08-06 11:24] VITALS: BP 135/60
--- NOTE | 2016-08-06 12:01 | Discharge Summary ---
<Art Howell - Last Filed: 08/06/16 11:41> Hospital Course - Hospital Course Hospital Course: Ms. Castellon is a 65-year-old black female patient with a history of coronary artery disease, congestive heart failure, cardiomyopathy, hypertension, diabetes , smoking, and renal failure that was sent to the ED as a transfer from [facility] on 08/03. Patient was found unresponsive at home and was intubated by EMS in the field. CT of the head showed no acute intracranial pathology. Chest x-ray revealed possible right lower lobe infiltrate. The patient was admitted to the hospitalist service and sent to the ICU for further evaluation and treatment. Cardiology, pulmonology, and nephrology as well as infectious disease were consulted during the patient's stay. Cardiology evaluated the patient. She had just been previously hospitalized with a NSTEMI he received a left heart cath which revealed EF 20-25% with severe global hypokinesis. Troponin on admission was 0.565. This was presumed to be due to her recent NSTEMI. Pulmonology was consulted to assist with the management of mechanical ventilation. Nephrology saw patient and patient was dialyzed on 08/03. Patient was later extubated that same night following dialysis. Patient's mental status improved. She was transferred to the floor. Patient also had a HD catheter removed from right IJ on 08/04. Infectious disease was consulted because of positive blood cultures. Serratia marcescens grew from the blood cultures. The patient had negative blood cultures 2 weeks prior. Patient was de-escalated from Zosyn to ceftriaxone 2 g. Follow-up blood cultures were no growth. It is recommended the patient receive ciprofloxacin treatment for 2 weeks. Today both pulmonary and infectious disease have signed off on patient. There has been much improvement of the patient's chest x-ray. Patient is doing much better and is afebrile with stable vital signs. The patient has reached maximal benefit of inpatient stay and will be discharged home. Patient will need to follow-up with Dr. Major in [address] Specialty Discharge - Follow Up or Referrals Follow up with: Gorge Buchanan MD [Physician] - 08/18/16 10:00 am Discharge Plan - Discharge Data Disposition: Disch To Home/Self Care - Discharge Medications New Atorvastatin [Lipitor] 20 mg PO BEDTIME tablet Calcium Acetate [Phoslo] 667 mg PO TID W/MEALS capsule Carvedilol [Coreg] 6.25 mg PO BID tablet Famotidine Tab [Pepcid Tab] 20 mg PO DAILY tablet Isosorbide Mononitrate [Imdur] 15 mg PO DAILY tablet Cinacalcet [Sensipar] 60 mg PO DAILY tablet Ciprofloxacin Tab [Cipro Tab] 500 mg PO DAILY #14 tablet Continue Pantoprazole Tab [Protonix Tab] 40 mg PO DAILY #90 tablet NS amLODIPine [Norvasc] 2.5 mg PO DAILY Hydrocodone/Acetaminophen [[place] 7.5-325 Tablet] 1 each PO Q4-6H PRN PRN Reason: Pain hydrALAZINE TAB [Apresoline Tab] 25 mg PO TID #90 tablet Discontinued Famotidine 20 mg PO BID Cinacalcet HCl [Sensipar] 60 mg PO DAILY Calcium Acetate 667 mg PO TID W/MEALS Isosorbide Mononitrate [Imdur] 15 mg PO DAILY #60 tablet Atorvastatin [Lipitor] 20 mg PO BEDTIME #60 tablet Carvedilol [Coreg] 6.25 mg PO BID #90 tablet NS - Follow Up or Referral Follow Up: Gorge Buchanan MD [Physician] - 08/18/16 10:00 am - Forms/Instructions Instructions: Pulmonary Edema (DC) Exam - Constitutional Vitals: Period Temp Pulse Resp BP Sys/Reynolds Pulse Ox Last 24 Hr 98.6 F-99.1 F 79-92 16-20 126-145/58-74 98-100 Discharge Results Procedures and tests throughout hospitalization: Pending Orders 08/05/16 08:07 Blood Culture Routine Labs on day of discharge: Labs from last 24 hours 08/06/16 08/06/16 08/06/16 11:06 05:30 04:26 WBC RBC Hgb Hct MCV MCH MCHC RDW Plt Count MPV Neut % (Auto) Lymph % (Auto) [place] % (Auto) Eos % (Auto) Baso % (Auto) Neut # (Auto) Lymph # (Auto) [place] # (Auto) Eos # (Auto) Baso # (Auto) Immature Gran % Nucleated RBC % Immature Gran # Nucleated RBCs # Sodium 138 Potassium 3.9 Chloride 104 Carbon Dioxide 23 Anion Gap 14.9 BUN 19 H Creatinine 5.60 H GFR Calculation 11 BUN/Creatinine Ratio 3.00 L Glucose 81 POC Glucose 94 88 Calculated Osmolality 275.7 Calcium 8.1 L Magnesium 2.2 08/06/16 08/05/16 08/05/16 04:26 23:34 18:44 WBC 8.6 RBC 3.28 L Hgb 7.7 L Hct 23.8 L MCV 72.6 L MCH 24 L MCHC 32.4 RDW 18.3 H Plt Count 365 MPV 10.6 Neut % (Auto) 61.8 Lymph % (Auto) 21.9 [place] % (Auto) 12.4 Eos % (Auto) 2.2 Baso % (Auto) 0.3 Neut # (Auto) 5.3 Lymph # (Auto) 1.9 [place] # (Auto) 1.1 H Eos # (Auto) 0.2 Baso # (Auto) 0.0 Immature Gran % 1.4 Nucleated RBC % 0.0 Immature Gran # 0.12 Nucleated RBCs # 0.00 Sodium Potassium Chloride Carbon Dioxide Anion Gap BUN Creatinine GFR Calculation BUN/Creatinine Ratio Glucose POC Glucose 94 103 Calculated Osmolality Calcium Magnesium Preliminary micro results at discharge 08/05/16 08:07 Blood Culture - Preliminary Blood No growth at 1 day 08/05/16 08:06 Blood Culture - Preliminary Blood No growth at 1 day DS: Provider Date of admission: 08/03/16 03:24 Primary care physician: . No PCP Attending physician on admission: Shantanu Bonilla MD Consults: 08/03/16 03:28 Consult to Pharmacy [CONS] Routine Reason for Pharmacy Consult: Dose/Manage Vancomycin 08/03/16 03:48 Consult to Physician [CONS] Routine Comment: On-call physician/need of dialysis Consulting Provider: Clayton Baker Consult to Specialist Group: Nephrology When should Consulting Provider be notified: In am Person Notified: dr baker Date Notified: 08/03/16 Time Notified: 09:00 08/03/16 06:45 Consult to Physician [CONS] Routine Comment: On-call physician/elevated troponin Consulting Provider: Gali Alberto Consult to Specialist Group: Cardiology When should Consulting Provider be notified: In am 08/04/16 07:34 Consult to Physician [CONS] Routine Comment: On-call physician/acute respiratory failure Consulting Provider: Santy Pope Consult to Specialist Group: Pulmonology When should Consulting Provider be notified: In am Person Notified: DR Keila POPE Date Notified: 08/04/16 Time Notified: 09:00 08/05/16 11:22 Consult to Physician [CONS] Routine Comment: positive blood cultures, repeat ordered Consulting Provider: Piper Davila Consult Notification Comment: Dr. Brown saw patient in dialysis today. Discharging clinician: Art Howell NP <DaveJacqueline - Last Filed: 08/06/16 12:09> Hospital Course - Time spent with patient Time with patient DS: Less than 30 minutes Diagnosis - Discharge Diagnosis (1) Positive blood culture Status: Resolved (2) Acute respiratory failure Status: Resolved (3) ESRD (end stage renal disease) on dialysis Status: Chronic (4) Hypertension Status: Chronic (5) Pulmonary edema Status: Resolved Discharge Plan - Discharge Data Condition at Discharge: Stable Discharge Diet: low salt diet Activity: increase activity as tolerated Hygiene: no restrictions Weight Bearing at Discharge: weight bear as tolerated Driving: no restrictions Contact your physician if you experience:: fever over 101, Shortness of breath Exam - Constitutional General appearance: over weight - Head Head exam: Present: normocephalic, atraumatic - Eye Eye exam: Present: EOMI Pupils: Present: MARIANO - ENT ENT exam: Present: normal exam - Neck Neck exam: Present: normal inspection - Respiratory Respiratory exam: Present: clear to auscultation bilaterally - Cardiovascular Cardiovascular exam: Present: regular rate and rhythm - GI/Abdominal GI/Abdominal exam: Present: normal bowel sounds, soft. Absent: tenderness, rebound - Extremities Exam Extremities exam: Present: normal inspection - Back Exam Back exam: Present: normal inspection - Neurological Exam Neurological exam: Present: alert, oriented X3 - Psychiatric Psychiatric exam: Present: normal affect, normal mood - Skin Skin exam: Present: warm, intact
--- NOTE | 2016-08-06 12:11 | Nephrology Progress Note ---
Nephrology - PN: Subj Interval history: Ms. Castellon is seen in follow-up of her end-stage renal disease. She had a chest x-ray today that demonstrates no volume overload. She came in volume overloaded and required ventilator. She is breathing comfortably. Note is made of IDs recommendation of Cipro for 14 days. She is to be discharged today and will continue her outpatient dialysis. Exam (PN)-Nephrology - Vital Signs Vital signs: Period Temp Pulse Resp BP Sys/Reynolds Pulse Ox Last 24 Hr 98.6 F-99.1 F 79-92 16-20 126-145/58-74 98-100 - Lab 08/06/16 04:26 08/06/16 04:26 Most recent lab results ABG pH 7.470 (7.35-7.45) H 08/03/16 05:35 ABG pCO2 46.4 MM HG (35-48) 08/03/16 05:35 ABG pO2 406.4 MM HG (80-95) H 08/03/16 05:35 ABG HCO3 33.0 MMOL/L (20-26) H 08/03/16 05:35 ABG O2 Saturation 99.6 % (95-100) 08/03/16 05:35 Calcium 8.1 MG/DL (8.5-10.1) L 08/06/16 04:26 Magnesium 2.2 MG/DL (1.8-2.4) 08/06/16 04:26 Assessment and Plan (1) End stage renal disease on dialysis Status: Chronic Current Visit: No (2) Anemia Status: Chronic Current Visit: No Qualifiers: Other causes of anemia: chronic disease, other Specialty Discharge - Follow Up or Referrals Follow up with: Gorge Buchanan MD [Physician] - 08/18/16 10:00 am
--- NOTE | 2016-08-13 16:06 | Physician Query Form ---
CLICK EDIT DOCUMENT TO SELECT QUERY ANSWER --> OK --> SIGN Wendy Petit RN Clinical Laser Beam Trim Operator W) [phone] (f) [phone] [email or web address] PROVIDERS: Make your selection(s) from the choices in EACH section by typing an "x" and enter comments in the comment section. Please use your independent medical judgment in providing your response. This request does not imply that any particular answer is desired or expected. CLINICAL INDICATORS: (Providers should not edit this section) The below diagnosis was documented in the record, but is not consistently noted in subsequent documentation. Based on documentation of "Serratia Septicemia" Temp of 100.6, Heart rate up to 104, WBC of 18.5. treated with IV Zosyn and IV Vancomycin. Diagnosis: Serratia Septicemia Please clarify the following: (x ) The above diagnosis was monitored, evaluated, and/or treated and is a confirmed diagnosis ( ) The above diagnosis was ruled out ( ) The above diagnosis is still a likely, suspected, probable diagnosis ( ) Other, please specify: ( ) Clinically unable to determine COMMENTS: PLEASE ALSO DOCUMENT RESPONSE IN PROGRESS NOTES AND/OR DISCHARGE SUMMARY Use of terms such as suspected, likely, or probable (associated with a specific diagnosis that is being evaluated, monitored, or treated as if it exists) are acceptable and can be restated in the discharge summary if not ruled out. MTDD
== END 2016-08-06 15:54 | disposition home or self-care (01) | DRG 853 ==
LOC: N.ED 02:07 → SUATTDRO 03:24 → N.EDINP 03:24 → N.CC 04:23 → N.3E 08-04 12:22
PROVIDERS: ADMIT Internal Medicine Infectious Disease; ATTEND Internal Medicine

== ENCOUNTER 2016-08-16 23:52 | Inpatient (IN) ==
[2016-08-17] MEDS ORDERED: PROPOFOL 200 MG/20 ML VIAL IV STA (00:30)
--- NOTE | 2016-08-17 00:39 | Emergency Department Note ---
Og Spangler Mantricia, am scribing for, and in the presence of, Kervin Ford MD 00:03. Logan Spangler Charles R, MD, personally performed the services described in this documentation, ascribed by Jo Ann Foley in my presence, and it is both accurate and complete . 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 EMS was called because pt was at home and stating that she could not breath. EMS intubated on scene and brought her to ED. She is a dialysis pt; however, pt did not dialyze yesterday so her creatinine level is high. Pt's blood pressure is also elevated at time of exam. No other complaints were reported to ED. Onset (ago): hour(s) Allergies/Adverse Reactions: Allergies Allergy/AdvReac Type Severity Reaction Status Date / Time ASHER Inhibitors Allergy Unknown/Unable Verified 07/23/15 20:00 to obtain aspirin Allergy Unknown/Unable Verified 07/23/15 20:00 to obtain ibuprofen Allergy Unknown/Unable Verified 07/23/15 20:00 to obtain IV DYE Allergy Severe ANAPHYLAXIS Uncoded 06/30/16 10:50 Home Medications: Home Medications Medication Instructions Recorded Confirmed Type Pantoprazole Tab [Protonix Tab] 40 mg PO DAILY #90 tablet NS 09/30/15 08/04/16 Rx amLODIPine [Norvasc] 2.5 mg PO DAILY 06/30/16 08/04/16 History hydrALAZINE TAB [Apresoline Tab] 25 mg PO TID #90 tablet 07/24/16 08/04/16 Rx Hydrocodone/Acetaminophen [[place] 1 each PO Q4-6H PRN 08/03/16 08/04/16 History 7.5-325 Tablet] Atorvastatin [Lipitor] 20 mg PO BEDTIME tablet 08/06/16 Rx Calcium Acetate [Phoslo] 667 mg PO TID W/MEALS capsule 08/06/16 Rx Carvedilol [Coreg] 6.25 mg PO BID tablet 08/06/16 Rx Cinacalcet [Sensipar] 60 mg PO DAILY tablet 08/06/16 Rx Ciprofloxacin Tab [Cipro Tab] 500 mg PO DAILY #14 tablet 08/06/16 Rx Famotidine Tab [Pepcid Tab] 20 mg PO DAILY tablet 08/06/16 Rx Isosorbide Mononitrate [Imdur] 15 mg PO DAILY tablet 08/06/16 Rx Review of System - Review of System ROS unobtainable: due to endotracheal tube Medical,Surgical,& Family Hx - Medical History Cardio: History of: CHF (The patient had a low EF on last admission by echo LV gram showed better EF), CAD (Two-vessel coronary artery disease (LAD and RCA) [facility] 07/22/16), Hypertension No history of: [place] Neurology: No history of: Brain Aneurysm, Cerebral Hemorrhage, Cerebrovascular Accident , Cerebral Palsy, Dementia, Migraine, Multiple Sclerosis, Parkinson's Disease, Peripheral Neuropathy, Seizures, TIA, Vertigo, Neurologocal Cancer HEENT: History of: Eye Problem (GLASS), HEENT Problems (chronic sinuse issues) Respiratory: No history of: Respiratory Problems Renal: History of: Dialysis (TUNNEL CATHETER RIGHT UPPER CHEST AV FISTULA LEFT ARM), Renal Failure Gastrointestinal: History of: GERD, Gastrointestinal Bleed (diagnosed on admisssion) Musculoskeletal: History of: Musculoskeletal Problems (ARTHRITIS) Hematology: History of: Anemia - Surgical History Cardiac Surgeries: Patient Denies: Cardiac Surgery Thoracic Surgeries: Patient denies;: Organ Transplant Neurologic Surgeries: Patient denies: Brain Aneurysm, Cerebral Hemorrhage, Neurologic Surgery Abdominal Surgeries: Surgical HX of: Colonoscopy, EGD Orthopedic Surgeries: Surgical HX of;: Orthopedic Surgery (right shoulder surgery 2012 rotary cuff with pins and screws) - Family History Family History: Reports;: Family Cancer (mother), Family Diabetes (brother), Family Heart Disease (sister dies of CHF), Family Hypertension, Family Stroke ( 2 brother) - Social History Smoking Status: Current every day smoker Exam Vital Signs: Vital Signs Temperature 98.1 F 08/16/16 23:52 Pulse Rate 101 H 08/16/16 23:52 Respiratory Rate 12 08/16/16 23:53 Blood Pressure 135/74 08/16/16 23:52 O2 Sat by Pulse Oximetry 100 08/16/16 23:52 - General General appearance: alert, in no apparent distress - Head Head exam: Present: atraumatic, normocephalic, normal inspection - Eye Eye exam: Present: normal appearance, PERRL, EOMI - ENT ENT exam: Present: normal exam, normal oropharynx, mucous membranes moist, TM's normal bilaterally, normal external ear exam - Neck Neck exam: Present: normal inspection, full ROM, trachea midline. Absent: tenderness - Chest Chest inspection: Present: normal inspection, symmetric chest wall rise. Absent : tenderness - Respiratory Respiratory exam: Present: rales, other (Decreased breath sounds bilaterally) - Cardiovascular Cardiovascular exam: Present: normal rhythm, tachycardia, normal heart sounds - Abdominal Exam Abdominal exam: Present: soft, normal bowel sounds. Absent: distention, tenderness, guarding, rebound - Extremities Exam Extremities exam: Present: full ROM, normal capillary refill, other (+1 LE edema ). Absent: tenderness - Back Exam Back exam: Present: normal inspection, full ROM. Absent: tenderness - Neurological Exam Neurological exam: Present: alert, oriented X3, CN II-XII intact, normal gait, reflexes normal - Psychiatric Psychiatric exam: Present: normal affect, normal mood - Skin Skin exam: Present: warm, dry, intact, normal color Course - Consultations Consultation #1: Hospitalist will admit patient Time: 00:37 Results - Labs Lab Results: I have reviewed the patients labs Labs: I reviewed all information from previous facility on patient Critical Care Time Critical Care Time: Yes Total Critical Care Time: 60 Disposition Clinical Impression: ESRD (end stage renal disease) on dialysis, Congestive heart failure, Pulmonary edema, Flash pulmonary edema, Acute respiratory failure, Endotracheally intubated Case discussed with: patient, patient's physician Disposition: Still a Patient Condition: Critical Time of Disposition: 00:38
--- NOTE | 2016-08-17 00:39 | Hospitalist History & Physical ---
Assessment and Plan (1) Pulmonary edema Status: Acute Assessment and plan: Is not clear if the patient can make urine. Will probably have to resort to transdermal nitroglycerin. Maintaining good blood pressures. Patient will need dialysis tomorrow with hyperfiltration Qualifiers: Chronicity: acute Qualified Code(s): J81.0 - Acute pulmonary edema (2) Acute respiratory failure Status: Resolved Assessment and plan: Maintain endotracheal intubation. Repeat ABG in the morning. Consult pulmonary for vent management Qualifiers: Respiratory failure complication: hypoxia Qualified Code(s): J96.01 - Acute respiratory failure with hypoxia (3) Acute on chronic diastolic CHF (congestive heart failure) Status: Acute Assessment and plan: Control blood pressures. Transdermal nitro paste to be used overnight. Resume home medication for blood pressure History of Present Illness Chief complaint: Acute hypoxic respiratory failure patient is intubated History of present illness: Ms. Castellon is a 65 year old female presented to [facility] respiratory. Patient was approximately adamant end up being intubated. Following intubation patient was transferred here. Patient has been transferred to this hospital multiple times in the past and a very similar circumstances. I was also had admitted her about 4 weeks ago with very similar circumstances. She has a history of end-stage renal disease history of mild/ moderate aortic insufficiency and preserved left ventricular function increased right pulmonary pressures by echo at least into the last year. Patient has a history of hypertension. She dialyzes in the [facility] area through an AV fistula in the left arm. Once in the emergency room patient was put on to prevent for sedation. She has received Versed in [place]. Home Medications Medication Instructions Recorded Confirmed Type Pantoprazole Tab [Protonix Tab] 40 mg PO DAILY #90 tablet NS 09/30/15 08/04/16 Rx amLODIPine [Norvasc] 2.5 mg PO DAILY 06/30/16 08/04/16 History hydrALAZINE TAB [Apresoline Tab] 25 mg PO TID #90 tablet 07/24/16 08/04/16 Rx Hydrocodone/Acetaminophen [[place] 1 each PO Q4-6H PRN 08/03/16 08/04/16 History 7.5-325 Tablet] Atorvastatin [Lipitor] 20 mg PO BEDTIME tablet 08/06/16 Rx Calcium Acetate [Phoslo] 667 mg PO TID W/MEALS capsule 08/06/16 Rx Carvedilol [Coreg] 6.25 mg PO BID tablet 08/06/16 Rx Cinacalcet [Sensipar] 60 mg PO DAILY tablet 08/06/16 Rx Ciprofloxacin Tab [Cipro Tab] 500 mg PO DAILY #14 tablet 08/06/16 Rx Famotidine Tab [Pepcid Tab] 20 mg PO DAILY tablet 08/06/16 Rx Isosorbide Mononitrate [Imdur] 15 mg PO DAILY tablet 08/06/16 Rx Allergies Allergy/AdvReac Type Severity Reaction Status Date / Time ASHER Inhibitors Allergy Unknown/Unable Verified 07/23/15 20:00 to obtain aspirin Allergy Unknown/Unable Verified 07/23/15 20:00 to obtain ibuprofen Allergy Unknown/Unable Verified 07/23/15 20:00 to obtain IV DYE Allergy Severe ANAPHYLAXIS Uncoded 06/30/16 10:50 Medical,Surgical,& Family Hx - Medical History Cardio: History of: CHF, CAD, Hypertension No history of: [place] Neurology: No history of: Brain Aneurysm, Cerebral Hemorrhage, Cerebrovascular Accident , Cerebral Palsy, Dementia, Migraine, Multiple Sclerosis, Parkinson's Disease, Peripheral Neuropathy, Seizures, TIA, Vertigo, Neurologocal Cancer HEENT: History of: Eye Problem (GLASS), HEENT Problems (chronic sinuse issues) Respiratory: No history of: Respiratory Problems Renal: History of: Dialysis, Renal Failure Gastrointestinal: History of: GERD, Gastrointestinal Bleed (diagnosed on admisssion) Musculoskeletal: History of: Musculoskeletal Problems (ARTHRITIS) Hematology: History of: Anemia - Surgical History Cardiac Surgeries: Patient Denies: Cardiac Surgery Thoracic Surgeries: Patient denies;: Organ Transplant Neurologic Surgeries: Patient denies: Brain Aneurysm, Cerebral Hemorrhage, Neurologic Surgery Abdominal Surgeries: Surgical HX of: Colonoscopy, EGD Orthopedic Surgeries: Surgical HX of;: Orthopedic Surgery (right shoulder surgery 2012 rotary cuff with pins and screws) - Family History Family History: Reports;: Family Cancer (mother), Family Diabetes (brother), Family Heart Disease (sister dies of CHF), Family Hypertension, Family Stroke ( 2 brother) - Social History Smoking Status: Unknown if ever smoked Frequency of Alcohol Use: Unknown Type of Drug Use: Unknown ROS unobtainable: due to endotracheal tube Exam - Constitutional Vitals: Period Temp Pulse Resp BP Sys/Reynolds Pulse Ox Last 24 Hr 98.1 F 101-101 12-12 135-135/74-74 100 General appearance: over weight - Head Head exam: Present: normocephalic - Eye Eye exam: Present: other (Patient is intubated and sedated) Pupils: Present: MARIANO - ENT ENT exam: Present: other (Orally intubated) - Respiratory Respiratory exam: Present: other (Bilateral rales with pink frothy material and endotracheal tubing) - Cardiovascular Cardiovascular exam: Present: other (Regular rhythm with occasional ectopy EKG shows a very occasional PVC's) - Extremities Exam Extremities exam: Present: other (Sedated patient) - Neurological Exam Neurological exam: Present: other (Admitted patient) - Psychiatric Psychiatric exam: Present: other (Sedated patient) - Skin Skin exam: Present: normal color, warm, dry Results - Labs Lab Results: I have reviewed the past 24 hour labs (Laboratory testing from [facility] been reviewed will be included in the chart. Nothing stands also at this time.) - Diagnostic Findings Procedure: KUB x-ray: image reviewed by me (Scans chest x-ray shows florid pulmonary edema and presence of an endotracheal tube in the trachea.)
[2016-08-17] MEDS: PROPOFOL 1,000 MG/100 ML BOTTLE IV SCH ×4 (00:54→19:24)
[2016-08-17 01:20] LABS: ABG Base Excess 1.3 MMOL/L (-2.5-2.5); ABG HCO3 25.4 MMOL/L (20-26); ABG Oxygen Saturation 90.2 % (95-100); ABG PH 7.248 (7.35-7.45); ABG PO2 65.9 MM HG (80-95)
[2016-08-17 01:22] LABS: ABG PCO2 69.8 MM HG (35-48)
[2016-08-17] MEDS: HEPARIN 5,000 UNIT/1 ML VIAL SUBCUT SCH ×2 (03:24→16:30)
[2016-08-17] MEDS: NITROGLYCERIN 2% OINT 1 INCH/GM PACK TOP SCH ×3 (05:32→20:07)
--- NOTE | 2016-08-17 07:45 | XRay Report ---
Referring Physician: Kervin Ford Exam: XR chest 1V portable Date: August 17, 2016 at 12:01 AM Reason: Endotracheal tube placement Comparison: Chest one view August 16, 2016 at 9:56 AM Findings: An endotracheal tube is in place with its distal tip projecting 4 cm above the raysa. A feeding tube is seen extending into the stomach and beyond the [id number]. The cardiac silhouette is again enlarged. There are opacities within the mid and lower lung zones bilaterally, right greater than left. This could represent pulmonary edema and/or pneumonia. No pneumothorax is identified, but there is mild right pleural fluid. The osseous structures appear stable with a right shoulder prosthesis. Surgical clips are also noted at the left upper arm. Impression: 1. Tubes and lines as above. 2. Mild cardiomegaly. 3. There are opacities within the mid and lower lung zones bilaterally, right greater than left. These opacities have increased since the previous study, and there has been development of mild right pleural fluid. This is concerning for pulmonary edema and/or pneumonia. PROCEDURE INTERPRETED AT [facility] DEPARTMENT OF RADIOLOGY Final Report Signed by: Dr. Kel Sapp
--- NOTE | 2016-08-17 08:13 | XRay Report ---
Referring Physician: Shantanu Bonilla MD Exam: XR chest 1V portable Date: August 17, 2016 at 3:02 AM Reason: Acute pulmonary process, on ventilator, history of congestive heart failure Comparison: Chest one view portable August 17, 2016 at 12:01 AM Findings: An endotracheal tube and feeding tube are again in place. The cardiac silhouette is again enlarged. There are opacities within the mid and lower lung zones bilaterally. This could represent pulmonary edema and/or pneumonia. No pneumothorax is identified, but there is mild right pleural fluid and possible mild left pleural fluid. The osseous structures appear stable. Surgical clips are noted at the left upper arm. Impression: There is slight improved aeration of the right lower lung zone, and there may be mild left pleural fluid. The study is otherwise similar to before. PROCEDURE INTERPRETED AT [facility] DEPARTMENT OF RADIOLOGY Final Report Signed by: Dr. Kel Sapp
[2016-08-17] MEDS: PANTOPRAZOLE 40 MG VIAL IV SCH ×2 (08:55→21:40)
[2016-08-17] MEDS: CINACALCET 30 MG TABLET PO SCH (08:57)
[2016-08-17] MEDS: CALCIUM ACETATE 667 MG CAPSULE PO SCH ×2 (08:58→16:30)
[2016-08-17] MEDS: amLODIPine 2.5 MG TABLET PO SCH (08:58)
[2016-08-17] MEDS: hydrALAZINE 25 MG TABLET PO SCH ×3 (08:58→21:40)
[2016-08-17] MEDS: CARVEDILOL 6.25 MG TABLET PO SCH ×2 (08:58→21:40)
--- NOTE | 2016-08-17 09:04 | Pulmonology Consult Note ---
Assessment and Plan (1) Acute respiratory failure Status: Resolved Assessment and plan: I have reduced the FiO2 to 60%. ABGs pending. Will need to be dialyzed to clear pulmonary edema prior to any planned for extubation. Current Visit: No Qualifiers: Respiratory failure complication: hypoxia Qualified Code(s): J96.01 - Acute respiratory failure with hypoxia (2) ESRD (end stage renal disease) on dialysis Status: Chronic Assessment and plan: Defer to nephrology. Needs dialysis today Current Visit: No (3) Pulmonary edema Status: Resolved Assessment and plan: Likely due to renal failure however may have an element of left ventricular dysfunction. Echo from 03 August showed normal LV ejection fraction with some diastolic dysfunction and mild MR and AR. She has pulmonary hypertension. Current Visit: No (4) Hypertension Status: Chronic Assessment and plan: Blood pressure currently well controlled. Current Visit: No (5) Diastolic congestive heart failure with preserved left ventricular function , NYHA class 4 Status: Acute Assessment and plan: This will better describe her heart failure. Current Visit: Yes History of Present Illness Chief complaint: Respiratory failure History of present illness: Ms. Castellon is a 65 year old female who has end-stage renal disease on dialysis. She was acutely short of breath and required intubation last night and is now on the ventilator. She is responsive. She denies missing any dialysis. Looking at her echocardiogram from her last admission she has only mild AR and MR and does have some mild pulmonary hypertension. She has an AV fistula in the left arm being dialyzed through that. She has an infected line removed a couple of weeks ago. She was treated for Serratia at that time. She was still on Cipro. Home Medications Medication Instructions Recorded Confirmed Type Pantoprazole Tab [Protonix Tab] 40 mg PO DAILY #90 tablet NS 09/30/15 08/04/16 Rx amLODIPine [Norvasc] 2.5 mg PO DAILY 06/30/16 08/04/16 History hydrALAZINE TAB [Apresoline Tab] 25 mg PO TID #90 tablet 07/24/16 08/04/16 Rx Hydrocodone/Acetaminophen [[place] 1 each PO Q4-6H PRN 08/03/16 08/04/16 History 7.5-325 Tablet] Atorvastatin [Lipitor] 20 mg PO BEDTIME tablet 08/06/16 Rx Calcium Acetate [Phoslo] 667 mg PO TID W/MEALS capsule 08/06/16 Rx Carvedilol [Coreg] 6.25 mg PO BID tablet 08/06/16 Rx Cinacalcet [Sensipar] 60 mg PO DAILY tablet 08/06/16 Rx Ciprofloxacin Tab [Cipro Tab] 500 mg PO DAILY #14 tablet 08/06/16 Rx Famotidine Tab [Pepcid Tab] 20 mg PO DAILY tablet 08/06/16 Rx Isosorbide Mononitrate [Imdur] 15 mg PO DAILY tablet 08/06/16 Rx Allergies Allergy/AdvReac Type Severity Reaction Status Date / Time ASHER Inhibitors Allergy Unknown/Unable Verified 07/23/15 20:00 to obtain aspirin Allergy Unknown/Unable Verified 07/23/15 20:00 to obtain ibuprofen Allergy Unknown/Unable Verified 07/23/15 20:00 to obtain IV DYE Allergy Severe ANAPHYLAXIS Uncoded 06/30/16 10:50 ROS unobtainable: due to endotracheal tube Exam (Pulmonay) H&P - Constitutional Vitals: Period Temp Pulse Resp BP Sys/Reynolds Pulse Ox Last 24 Hr 97.5 F-98.1 F 71-101 12-21 82-135/42-91 12-100 Exam: Patient is responsive. Her blood pressure is 107/57 pulse of 80 O2 sat 100% on the ventilator. Respiratory rate 16. Pupils react to light. Orotracheal tube in place. Neck is supple no bruits. Chest reveals rales at both bases. Heart normal rate and rhythm I do not hear any murmurs. Abdomen soft nontender no masses. Extremities no clubbing cyanosis or edema. Medical,Surgical,& Family Hx - Medical History Cardio: History of: CHF, CAD, Hypertension No history of: CT Neurology: No history of: Brain Aneurysm, Cerebral Hemorrhage, Cerebrovascular Accident , Cerebral Palsy, Dementia, Migraine, Multiple Sclerosis, Parkinson's Disease, Peripheral Neuropathy, Seizures, TIA, Vertigo, Neurologocal Cancer HEENT: History of: Eye Problem (GLASS), HEENT Problems (chronic sinuse issues) Respiratory: History of: Intubation No history of: Respiratory Problems Renal: History of: Dialysis, Renal Failure Gastrointestinal: History of: GERD, Gastrointestinal Bleed (diagnosed on admisssion) Musculoskeletal: History of: Musculoskeletal Problems (ARTHRITIS) Hematology: History of: Anemia - Surgical History Cardiac Surgeries: Patient Denies: Cardiac Surgery Thoracic Surgeries: Patient denies;: Organ Transplant, Lobectomy Neurologic Surgeries: Patient denies: Brain Aneurysm, Cerebral Hemorrhage, Neurologic Surgery Abdominal Surgeries: Surgical HX of: Colonoscopy, EGD Orthopedic Surgeries: Surgical HX of;: Orthopedic Surgery (right shoulder surgery 2012 rotary cuff with pins and screws) - Family History Family History: Reports;: Family Cancer (mother), Family Diabetes (brother), Family Heart Disease (sister dies of CHF), Family Hypertension, Family Stroke ( 2 brother) - Social History Smoking Status: Unknown if ever smoked Frequency of Alcohol Use: Unknown Type of Drug Use: Unknown Results - Diagnostic Findings Procedure: Chest x-ray: image reviewed by me (Pulmonary edema. ET tube in good position.)
[2016-08-17 09:34] LABS: ABG Base Excess 8.8 MMOL/L (-2.5-2.5); ABG HCO3 32.6 MMOL/L (20-26); ABG Oxygen Saturation 99.7 % (95-100); ABG PCO2 38.4 MM HG (35-48); ABG PH 7.531 (7.35-7.45); ABG TCO2 30.2 MMOL/L (23-27)
--- NOTE | 2016-08-17 10:31 | Hospitalist Progress Note ---
Assessment and Plan (1) Acute respiratory failure Status: Acute Assessment and plan: The patient required intubation for acute respiratory failure due to pulmonary edema. The patient will require hemodialysis today. Current Visit: No Qualifiers: Respiratory failure complication: hypoxia Qualified Code(s): J96.01 - Acute respiratory failure with hypoxia (2) ESRD (end stage renal disease) on dialysis Status: Chronic Current Visit: No (3) Pulmonary edema Status: Acute Current Visit: No Hospitalist: Subjective Interval history: This is a 65-year-old lady who has dialysis 3 times weekly. The patient became worse short of breath and came to the emergency room. She was diagnosed with pulmonary edema and eventually required intubation. The patient does not have fever chills or evidence of pneumonia. The patient is orally intubated, mechanically ventilated, sedated, and unable to give further history. Exam - Constitutional Vitals: Period Temp Pulse Resp BP Sys/Reynolds Pulse Ox Last 24 Hr 97.5 F-98.1 F 71-101 12-21 82-135/42-91 12-100 Exam: Constitutional System: No distress. No tremulousness. The patient is sedated with Diprivan Head: Normocephalic, atraumatic. Ears, Nose and Throat System: No evidence of Otitis or Mastoiditis. No epistaxis or discharge Eyes System: Pupils equal, round, and reactive. Extraocular muscles intact. Neck: Supple, without adenopathy, No jugular venous distention. No thyromegaly , neck mass, or prior surgery apparent. Respiratory System: Chest rales and chest to auscultation. Cardiovascular System: Heart with regular rate and rhythm. No murmur. GI System: Abdomen soft, nontender. Normo active bowel sounds present. Musculoskeletal System: limbs with no pedal edema. Full distal pulses. Results - Labs Lab Results: I have reviewed the past 24 hour labs
[2016-08-17 16:14] LABS: Basophils % 0.3 % (0.0-0.8); Eosinophils # 0.3 10*3/uL (0.0-0.87); Eosinophils % 2.5 % (0.00-10.9); Hemoglobin 7.6 GM/DL (12.0-16.0); Immature Granulocytes % 0.6 %; Immature Granulocytes Absolute 0.07 #; Lymphocytes # 1.8 10*3/uL (1.4-4.0); Lymphocytes % 15.4 % (21.3-54.2); Mean Corpuscular Hemoglobin 24 PG (27-34); Mean Corpuscular Volume 71.7 FL (87-102); Mean Platelet Volume 10.1 FL (9.6-12.0); Monocytes # 0.9 10*3/uL (0.11-0.8); Monocytes % 7.5 % (1.7-12.7); Neutrophils # 8.4 10*3/uL (1.4-7.4); Neutrophils % 73.7 % (38.7-73.9); Platelet Count 426 T/CUMM (130-400); Red Blood Count 3.21 MC/CUMM (3.8-5.5); Red Cell Distribution Width 18.1 % (9.3-17.3); White Blood Count 11.4 T/CUMM (4-12)
[2016-08-17 16:30] LABS: Calcium 7.5 MG/DL (8.5-10.1); Osmolality,Calculated 273.7 MOS/KG (273-304); Potassium 3.6 MMOL/L (3.5-5.1)
[2016-08-17] MEDS ORDERED: EPOETIN ALFA 10,000 UNIT/1 ML VIAL IV SCH (19:00)
[2016-08-17] MEDS ORDERED: IRON SUCROSE 100 MG/5 ML VIAL IV SCH (19:00)
--- NOTE | 2016-08-17 20:29 | Nephrology Consult Note ---
History of Present Illness Chief complaint: End-stage renal disease History of present illness: Ms. Castellon is a 65 year old female with a history of end-stage renal disease due to hypertension dialyzes at the [facility] dialysis unit on a Wednesday schedule. The patient presented with increased shortness of breath volume overloaded and has required ventilation management. Chest x-ray showed evidence of volume overload. On interview with patient's family is reported that patient has been eating several wall melons over the weekend. They reports that it seems like every 2 weeks she has increased shortness of breath and gets into respiratory distress on Sundays. Family members are also expressed that there was concern the patient may be drinking a lot of fluids as well. I have educated the patient in the past about her volume status and fluid management. At this time nephrology was consulted for volume overload plans for hemodialysis today. Home Medications Medication Instructions Recorded Confirmed Type Pantoprazole Tab [Protonix Tab] 40 mg PO DAILY #90 tablet NS 09/30/15 08/04/16 Rx amLODIPine [Norvasc] 2.5 mg PO DAILY 06/30/16 08/04/16 History hydrALAZINE TAB [Apresoline Tab] 25 mg PO TID #90 tablet 07/24/16 08/04/16 Rx Hydrocodone/Acetaminophen [[place] 1 each PO Q4-6H PRN 08/03/16 08/04/16 History 7.5-325 Tablet] Atorvastatin [Lipitor] 20 mg PO BEDTIME tablet 08/06/16 Rx Calcium Acetate [Phoslo] 667 mg PO TID W/MEALS capsule 08/06/16 Rx Carvedilol [Coreg] 6.25 mg PO BID tablet 08/06/16 Rx Cinacalcet [Sensipar] 60 mg PO DAILY tablet 08/06/16 Rx Ciprofloxacin Tab [Cipro Tab] 500 mg PO DAILY #14 tablet 08/06/16 Rx Famotidine Tab [Pepcid Tab] 20 mg PO DAILY tablet 08/06/16 Rx Isosorbide Mononitrate [Imdur] 15 mg PO DAILY tablet 08/06/16 Rx Allergies Allergy/AdvReac Type Severity Reaction Status Date / Time ASHER Inhibitors Allergy Unknown/Unable Verified 07/23/15 20:00 to obtain aspirin Allergy Unknown/Unable Verified 07/23/15 20:00 to obtain ibuprofen Allergy Unknown/Unable Verified 07/23/15 20:00 to obtain IV DYE Allergy Severe ANAPHYLAXIS Uncoded 06/30/16 10:50 Medical,Surgical,& Family Hx - Medical History Cardio: History of: CHF, CAD, Hypertension No history of: [place] Neurology: No history of: Brain Aneurysm, Cerebral Hemorrhage, Cerebrovascular Accident , Cerebral Palsy, Dementia, Migraine, Multiple Sclerosis, Parkinson's Disease, Peripheral Neuropathy, Seizures, TIA, Vertigo, Neurologocal Cancer HEENT: History of: Eye Problem (GLASS), HEENT Problems (chronic sinuse issues) Respiratory: History of: Intubation No history of: Respiratory Problems Renal: History of: Dialysis, Renal Failure Gastrointestinal: History of: GERD, Gastrointestinal Bleed (diagnosed on admisssion) Musculoskeletal: History of: Musculoskeletal Problems (ARTHRITIS) Hematology: History of: Anemia - Surgical History Cardiac Surgeries: Patient Denies: Cardiac Surgery Thoracic Surgeries: Patient denies;: Organ Transplant, Lobectomy Neurologic Surgeries: Patient denies: Brain Aneurysm, Cerebral Hemorrhage, Neurologic Surgery Abdominal Surgeries: Surgical HX of: Colonoscopy, EGD Orthopedic Surgeries: Surgical HX of;: Orthopedic Surgery (right shoulder surgery 2012 rotary cuff with pins and screws) - Family History Family History: Reports;: Family Cancer (mother), Family Diabetes (brother), Family Heart Disease (sister dies of CHF), Family Hypertension, Family Stroke ( 2 brother) - Social History Smoking Status: Unknown if ever smoked Frequency of Alcohol Use: Unknown Type of Drug Use: Unknown Review of Systems ROS unobtainable: due to endotracheal tube Exam - Vital Signs Vital signs: Period Temp Pulse Resp BP Sys/Reynolds Pulse Ox Last 24 Hr 97.0 F-98.1 F 71-101 12-21 82-164/42-91 12-100 - General Appearance General appearance: well-developed, intubated EENT: ATNC Neck: supple Respiratory: rales Cardiology: no edema, regular rate, regular rhythm Gastrointestinal: normoactive bowel sounds, no tenderness, no organomegaly Results - Labs CBC & BMP: 08/17/16 16:05 08/17/16 16:04 Assessment and Plan (1) Acute respiratory failure Status: Acute Assessment and plan: More likely due to volume overload. Plan for hemodialysis today. Current Visit: No Qualifiers: Respiratory failure complication: hypoxia Qualified Code(s): J96.01 - Acute respiratory failure with hypoxia (2) Malignant hypertension Status: Resolved Current Visit: No (3) ESRD (end stage renal disease) on dialysis Status: Chronic Assessment and plan: Plan for hemodialysis today. Current Visit: No (4) Hypertension Status: Chronic Current Visit: No (5) Pulmonary edema Status: Acute Current Visit: No Qualifiers: Chronicity: acute Qualified Code(s): J81.0 - Acute pulmonary edema
[2016-08-17] MEDS: ATORVASTATIN 20 MG TABLET PO SCH (21:40)
[2016-08-18] MEDS: NITROGLYCERIN 2% OINT 1 INCH/GM PACK TOP SCH ×2 (00:05→06:42)
[2016-08-18] MEDS: PROPOFOL 1,000 MG/100 ML BOTTLE IV SCH ×3 (00:06→06:43)
[2016-08-18] MEDS: HEPARIN 5,000 UNIT/1 ML VIAL SUBCUT SCH ×2 (03:34→15:36)
[2016-08-18 03:47] LABS: ABG Base Excess 6.3 MMOL/L (-2.5-2.5); ABG HCO3 29.6 MMOL/L (20-26); ABG Oxygen Saturation 98.8 % (95-100); ABG PCO2 37.1 MM HG (35-48); ABG PO2 143.2 MM HG (80-95); ABG TCO2 30.8 MMOL/L (23-27); Allen Test Positive; Pt O2 Delivery Device Ventilator
[2016-08-18 05:25] LABS: Basophils % 0.3 % (0.0-0.8); Eosinophils # 0.4 10*3/uL (0.0-0.87); Hematocrit 24.6 VOL% (35.7-47.0); Hemoglobin 7.9 GM/DL (12.0-16.0); Immature Granulocytes % 0.7 %; Immature Granulocytes Absolute 0.07 #; Lymphocytes # 1.9 10*3/uL (1.4-4.0); Lymphocytes % 18.3 % (21.3-54.2); Mean Corpuscular HGB Conc 32.1 GM/DL (32-36); Mean Corpuscular Hemoglobin 23 PG (27-34); Mean Corpuscular Volume 71.9 FL (87-102); Monocytes # 0.8 10*3/uL (0.11-0.8); Monocytes % 7.9 % (1.7-12.7); Neutrophils # 7.2 10*3/uL (1.4-7.4); Neutrophils % 68.8 % (38.7-73.9); Platelet Count 449 T/CUMM (130-400); Red Blood Count 3.42 MC/CUMM (3.8-5.5); Red Cell Distribution Width 18.6 % (9.3-17.3); White Blood Count 10.4 T/CUMM (4-12)
[2016-08-18 05:53] LABS: Calcium 7.6 MG/DL (8.5-10.1); Osmolality,Calculated 270.8 MOS/KG (273-304); Potassium 3.9 MMOL/L (3.5-5.1)
--- NOTE | 2016-08-18 06:48 | XRay Report ---
Portable chest Date: 08/18/2016 Clinical history: Ventilator Comparison: 08/17/2016 Technique: Portable AP sitting chest Findings: Persistent cardiomegaly with stable supportive devices. Reduced parenchymal findings with smaller pleural effusions. Decreased hilar density with less prominent pulmonary vasculature. Status post right shoulder replacement with degenerative changes. Impression: Improved pulmonary edema/infiltration with reduced atelectasis and smaller pleural effusions. The supportive devices remain in satisfactory position. PROCEDURE INTERPRETED AT [facility] DEPARTMENT OF RADIOLOGY Final Report Signed by: Dr. Shana Medellin
[2016-08-18] MEDS ORDERED: HEPARIN 10,000 UNIT/10 ML VIAL IV SCH (07:00)
--- NOTE | 2016-08-18 07:26 | Pulmonology Progress Note ---
Pulmonary - PN: Subj Interval history: This 65-year-old lady came in and pulmonary edema. She is on the ventilator. She had dialysis yesterday and chest x-ray looks much better although not totally clear. ABGs improved. Will do CPAP trial and see if we can get her extubated this morning. She may need some additional offloading of fluid with dialysis. Exam (Progress Note) - Constitutional Vitals: Period Temp Pulse Resp BP Sys/Reynolds Pulse Ox Last 24 Hr 97.0 F-98.7 F 73-91 12-21 68-164/3-96 97-100 Exam: Patient is responsive. Vital signs normal. Pupils react to light. orotracheal tube is in place. Chest shows some bibasilar crackles. Heart normal rate and rhythm grade 1/6 systolic murmur left sternal border and right base. Abdomen soft no masses. Bowel sounds present. Extremities trace of edema. Calves nontender Results - Labs CBC & BMP: 08/18/16 05:05 08/18/16 05:05 Lab Results: I have reviewed the past 24 hour labs - Diagnostic Findings Procedure: Chest x-ray: image reviewed by me (Lower lobe interstitial infiltrates are much improved. ET tube in good position.) Assessment and Plan (1) Acute respiratory failure Status: Acute Assessment and plan: I have reduced the FiO2 to 60%. ABGs pending. Will need to be dialyzed to clear pulmonary edema prior to any planned for extubation. 08/18/2016 respiratory failure due to pulmonary edema. This has improved with dialysis. Will do CPAP and measure mechanics and see if we can get her extubated this morning. Current Visit: No Qualifiers: Respiratory failure complication: hypoxia Qualified Code(s): J96.01 - Acute respiratory failure with hypoxia (2) ESRD (end stage renal disease) on dialysis Status: Chronic Assessment and plan: Defer to nephrology. Needs dialysis today 08/18/2016 had dialysis yesterday. Defer to nephrology on next dialysis timing. Current Visit: No (3) Pulmonary edema Status: Acute Assessment and plan: Likely due to renal failure however may have an element of left ventricular dysfunction. Echo from 03 August showed normal LV ejection fraction with some diastolic dysfunction and mild MR and AR. She has pulmonary hypertension. 08/18/2016 pulmonary edema is due to fluid overload from renal failure. It has improved with dialysis. She does have some mild apparently heart disease Current Visit: No (4) Hypertension Status: Chronic Assessment and plan: Blood pressure currently well controlled. 08/18/2016 blood pressure well controlled Current Visit: No (5) Diastolic congestive heart failure with preserved left ventricular function , NYHA class 4 Status: Acute Assessment and plan: This will better describe her heart failure. 08/18/2016 diastolic congestive heart failure aggravated by end-stage renal disease with fluid retention. Current Visit: Yes
[2016-08-18] MEDS: hydrALAZINE 25 MG TABLET PO SCH ×3 (08:42→21:02)
[2016-08-18] MEDS: CINACALCET 30 MG TABLET PO SCH (08:42)
[2016-08-18] MEDS: amLODIPine 2.5 MG TABLET PO SCH (08:42)
[2016-08-18] MEDS: PANTOPRAZOLE 40 MG VIAL IV SCH ×2 (08:43→21:00)
[2016-08-18] MEDS: CARVEDILOL 6.25 MG TABLET PO SCH ×2 (08:43→21:02)
[2016-08-18 08:57] LABS: ABG Base Excess 4.4 MMOL/L (-2.5-2.5); ABG HCO3 28.4 MMOL/L (20-26); ABG Oxygen Saturation 99.3 % (95-100); ABG PCO2 36.8 MM HG (35-48); ABG PH 7.488 (7.35-7.45)
--- NOTE | 2016-08-18 09:45 | EKG Report ---
Stationary ECG Study [facility] ER Test Date: 08/17/2016 12:03:58 AM Pat Name: ROSEMARIE SPARKS Department: Room: 114 Gender: F Supervisor Assembly Room: SHEREE : 1950 Requested by: Kervin Arteaga Order Number: [id number] Reading MD: PAULINE BENSON Intervals [place] Rate: 103 P: 72 MS: 144 QRS: 82 QRSD: 90 T: 76 QT: 382 QTc: 442 Interpretive Statements SINUS TACHYCARDIA WITH OCCASIONAL VENTRICULAR PREMATURE COMPLEXES POSSIBLE LEFT ATRIAL ENLARGEMENT Electronically Signed On 08-19-16 06:59:09 CDT by PAULINE BENSON [email or web address]
[2016-08-18 10:56] LABS: ABG Base Excess 3.8 MMOL/L (-2.5-2.5); ABG HCO3 27.8 MMOL/L (20-26); ABG PCO2 37.1 MM HG (35-48); ABG PH 7.477 (7.35-7.45); ABG TCO2 25.5 MMOL/L (23-27); Allen Test Positive
[2016-08-18] MEDS ORDERED: FUROSEMIDE INJ 240 MG in SODIUM CHLORIDE 0.9% 50 ML IV ONE (13:01)
--- NOTE | 2016-08-18 13:06 | Hospitalist Progress Note ---
Assessment and Plan (1) Acute respiratory failure Status: Acute Assessment and plan: The patient required intubation for acute respiratory failure due to pulmonary edema. The patient has had dialysis therapy and volume status is improved. She is now off the ventilator. We will give some Lasix in hopes to improve pulmonary artery pressures and hopefully cause some urine output. Current Visit: No Qualifiers: Respiratory failure complication: hypoxia Qualified Code(s): J96.01 - Acute respiratory failure with hypoxia (2) ESRD (end stage renal disease) on dialysis Status: Chronic Current Visit: No (3) Pulmonary edema Status: Acute Current Visit: No Hospitalist: Subjective Interval history: This is a 65-year-old hemodialysis patient who receives treatments on Wednesday and Wednesday. The patient was admitted to the hospital with hypervolemia. The patient is now off the ventilator and complains of hunger. Nitroglycerin was discontinued secondary to hypotension. Exam - Constitutional Vitals: Period Temp Pulse Resp BP Sys/Reynolds Pulse Ox Last 24 Hr 97.0 F-98.7 F 73-91 12-21 68-164/3-96 100-100 Exam: Constitutional System: No distress. No tremulousness. The patient is drowsy Head: Normocephalic, atraumatic. Ears, Nose and Throat System: No evidence of Otitis or Mastoiditis. No epistaxis or discharge Eyes System: Pupils equal, round, and reactive. Extraocular muscles intact. Neck: Supple, without adenopathy, No jugular venous distention. No thyromegaly , neck mass, or prior surgery apparent. Respiratory System: Chest few rales to auscultation. Cardiovascular System: Heart with regular rate and rhythm. No murmur. GI System: Abdomen soft, nontender. Normo active bowel sounds present. Musculoskeletal System: limbs with no pedal edema. Full distal pulses. Results - Labs CBC & BMP: 08/18/16 05:05 08/18/16 05:05 Lab Results: I have reviewed the past 24 hour labs
--- NOTE | 2016-08-18 18:39 | Nephrology Progress Note ---
Nephrology - PN: Subj Interval history: The patient is now extubated. She mentions feeling better and is eager to go home. Exam (PN)-Nephrology - Vital Signs Vital signs: Period Temp Pulse Resp BP Sys/Reynolds Pulse Ox Last 24 Hr 97.2 F-98.7 F 79-91 12-22 68-152/3-96 96-100 - General Appearance General appearance: well-developed, well-nourished EENT: ATNC Neck: supple Respiratory: clear Cardiology: regular rate, regular rhythm Gastrointestinal: normoactive bowel sounds, no tenderness Integumentary: no rash Neurologic: alert and oriented x3 Musculoskeletal: no clubbing Psychiatric: mood/affect appropriate, cooperative - Lab 08/18/16 05:05 08/18/16 05:05 Most recent lab results ABG pH 7.477 (7.35-7.45) H 08/18/16 10:57 ABG pCO2 37.1 MM HG (35-48) 08/18/16 10:57 ABG pO2 101.0 MM HG (80-95) H 08/18/16 10:57 ABG HCO3 27.8 MMOL/L (20-26) H 08/18/16 10:57 ABG O2 Saturation 98.0 % (95-100) 08/18/16 10:57 Calcium 7.6 MG/DL (8.5-10.1) L 08/18/16 05:05 Magnesium 2.0 MG/DL (1.8-2.4) 08/17/16 16:04 Assessment and Plan (1) Acute respiratory failure Status: Acute Assessment and plan: More likely due to volume overload. Plan for hemodialysis tomorrow Current Visit: No Qualifiers: Respiratory failure complication: hypoxia Qualified Code(s): J96.01 - Acute respiratory failure with hypoxia (2) ESRD (end stage renal disease) on dialysis Status: Chronic Assessment and plan: Plan for hemodialysis tomorrow Current Visit: No (3) Hypertension Status: Chronic Current Visit: No Qualifiers: Hypertension type: essential hypertension Qualified Code(s): I10 - Essential (primary) hypertension (4) Pulmonary edema Status: Resolved Current Visit: No Qualifiers: Chronicity: acute Qualified Code(s): J81.0 - Acute pulmonary edema
[2016-08-18] MEDS ORDERED: PHENOL 1.4% THROAT SPRAY 177 ML BOTTLE PO PRN (19:21)
[2016-08-18] MEDS: CALCIUM ACETATE 667 MG CAPSULE PO SCH ×2 (19:33→19:34)
[2016-08-18] MEDS: ATORVASTATIN 20 MG TABLET PO SCH (21:02)
[2016-08-19 03:50] LABS: ABG Base Excess 5.6 MMOL/L (-2.5-2.5); ABG HCO3 28.7 MMOL/L (20-26); ABG Oxygen Saturation 96.7 % (95-100); ABG PCO2 35.7 MM HG (35-48); ABG PH 7.523 (7.35-7.45); ABG PO2 79.8 MM HG (80-95); ABG TCO2 29.8 MMOL/L (23-27); Allen Test Positive; Pt O2 Delivery Device Room Air
[2016-08-19] MEDS: HEPARIN 5,000 UNIT/1 ML VIAL SUBCUT SCH ×2 (04:47→18:21)
[2016-08-19 05:04] LABS: Basophils % 0.2 % (0.0-0.8); Eosinophils # 0.5 10*3/uL (0.0-0.87); Eosinophils % 5.8 % (0.00-10.9); Hematocrit 23.2 VOL% (35.7-47.0); Hemoglobin 7.6 GM/DL (12.0-16.0); Immature Granulocytes % 0.9 %; Immature Granulocytes Absolute 0.08 #; Lymphocytes # 1.9 10*3/uL (1.4-4.0); Lymphocytes % 21.2 % (21.3-54.2); Mean Corpuscular HGB Conc 32.8 GM/DL (32-36); Mean Corpuscular Hemoglobin 23 PG (27-34); Mean Corpuscular Volume 71.4 FL (87-102); Mean Platelet Volume 10.5 FL (9.6-12.0); Monocytes # 1.1 10*3/uL (0.11-0.8); Monocytes % 12.1 % (1.7-12.7); Neutrophils # 5.2 10*3/uL (1.4-7.4); Neutrophils % 59.8 % (38.7-73.9); Platelet Count 433 T/CUMM (130-400); Red Blood Count 3.25 MC/CUMM (3.8-5.5); Red Cell Distribution Width 18.5 % (9.3-17.3); White Blood Count 8.7 T/CUMM (4-12)
[2016-08-19 05:32] LABS: Calcium 7.2 MG/DL (8.5-10.1); Magnesium 2.3 MG/DL (1.8-2.4); Osmolality,Calculated 272.1 MOS/KG (273-304); Potassium 4.1 MMOL/L (3.5-5.1)
--- NOTE | 2016-08-19 06:34 | XRay Report ---
Portable chest Date: 08/19/2016 Clinical history: Ventilator Comparison: 08/18/2016 Technique: Portable AP sitting chest Findings: Persistent cardiomegaly with removal of the endotracheal tube and nasogastric tube. Reduced parenchymal findings with smaller pleural effusions. Status post right shoulder replacement with degenerative changes. Impression: Improved pulmonary edema/infiltration with reduced atelectasis and smaller pleural effusions. Removal of the endotracheal tube and nasogastric tube. PROCEDURE INTERPRETED AT [facility] DEPARTMENT OF RADIOLOGY Final Report Signed by: Dr. Shana Medellin
--- NOTE | 2016-08-19 07:11 | Pulmonology Progress Note ---
Pulmonary - PN: Subj Interval history: This 65-year-old lady came in and pulmonary edema. She is on the ventilator. She had dialysis yesterday and chest x-ray looks much better although not totally clear. ABGs improved. Will do CPAP trial and see if we can get her extubated this morning. She may need some additional offloading of fluid with dialysis. 08/19/2016 patient has done well postextubation. Room air oxygen saturation 100% . Room air ABGs normal. PO2 in the upper 70s. Chest x-ray shows cardiomegaly minimal pleural blunting on the right side. Basically her problem with fluid overload associated with her renal failure. She denies eating or drinking too much. She says she has made all of her dialysis visits. Defer to nephrology on what needs to be changed there. From pulmonary standpoint she is stable, I will sign off. Exam (Progress Note) - Constitutional Vitals: Period Temp Pulse Resp BP Sys/Reynolds Pulse Ox Last 24 Hr 97.2 F-98.2 F 75-90 15-79 91-145/42-76 94-100 Exam: Patient is responsive. Vital signs normal. Pupils react to light. Patient is on room air. Chest sounds clear. Heart normal rate and rhythm grade 1/6 systolic murmur left sternal border and right base. Abdomen soft no masses. Bowel sounds present. Extremities trace of edema. Calves nontender Results - Labs CBC & BMP: 08/19/16 04:21 08/19/16 04:21 Lab Results: I have reviewed the past 24 hour labs - Diagnostic Findings Procedure: Chest x-ray: image reviewed by me (Cardiomegaly. Minimal right pleural blunting. Pulmonary edema resolved.) Assessment and Plan (1) Acute respiratory failure Status: Resolved Assessment and plan: I have reduced the FiO2 to 60%. ABGs pending. Will need to be dialyzed to clear pulmonary edema prior to any planned for extubation. 08/18/2016 respiratory failure due to pulmonary edema. This has improved with dialysis. Will do CPAP and measure mechanics and see if we can get her extubated this morning. 08/19/2016 this was due to pulmonary edema from end-stage renal disease. It has resolved with dialysis. Current Visit: No Qualifiers: Respiratory failure complication: hypoxia Qualified Code(s): J96.01 - Acute respiratory failure with hypoxia (2) ESRD (end stage renal disease) on dialysis Status: Chronic Assessment and plan: Defer to nephrology. Needs dialysis today 08/18/2016 had dialysis yesterday. Defer to nephrology on next dialysis timing. 08/19/2016 defer to nephrology on dialysis scheduling. Current Visit: No (3) Pulmonary edema Status: Resolved Assessment and plan: Likely due to renal failure however may have an element of left ventricular dysfunction. Echo from 03 August showed normal LV ejection fraction with some diastolic dysfunction and mild MR and AR. She has pulmonary hypertension. 08/18/2016 pulmonary edema is due to fluid overload from renal failure. It has improved with dialysis. She does have some mild apparently heart disease 08/19/2016 this has resolved with dialysis. Reviewing her weights, they do not make sense. I have asked him to recheck Current Visit: No (4) Hypertension Status: Chronic Assessment and plan: Blood pressure currently well controlled. 08/18/2016 blood pressure well controlled 08/19/2016 blood pressure well controlled with systolic in the 140s. Current Visit: No Qualifiers: Hypertension type: essential hypertension Qualified Code(s): I10 - Essential (primary) hypertension (5) Diastolic congestive heart failure with preserved left ventricular function , NYHA class 4 Status: Chronic Assessment and plan: This will better describe her heart failure. 08/18/2016 diastolic congestive heart failure aggravated by end-stage renal disease with fluid retention. 08/19/2016 heart failure improved. Current Visit: Yes
[2016-08-19] MEDS: PANTOPRAZOLE 40 MG VIAL IV SCH (09:19)
[2016-08-19] MEDS: CINACALCET 30 MG TABLET PO SCH (09:19)
[2016-08-19] MEDS: amLODIPine 2.5 MG TABLET PO SCH (09:19)
[2016-08-19] MEDS: hydrALAZINE 25 MG TABLET PO SCH ×2 (09:19→18:21)
--- NOTE | 2016-08-19 09:38 | Hospitalist Progress Note ---
Assessment and Plan (1) Acute respiratory failure Status: Acute Current Visit: Yes (2) ESRD (end stage renal disease) on dialysis Status: Acute Current Visit: Yes (3) Pulmonary edema Status: Acute Assessment and plan: Patient is doing well status post extubation. I will transfer her upstairs. Defer to renal if she needs a transfusion. Patient's respiratory failure responded quickly to dialysis. This is the second time in 2 weeks. Both times patient reports to have eaten watermelon. I recommended that she stay away from watermelon in case there is a correlation for her. Current Visit: Yes Hospitalist: Subjective Interval history: Patient is awake and alert and doing well status post extubation yesterday. Exam - Constitutional Vitals: Period Temp Pulse Resp BP Sys/Reynolds Pulse Ox Last 24 Hr 97.5 F-98.2 F 75-90 15-79 91-145/42-73 94-100 General appearance: over weight - Head Head exam: Present: normal inspection - ENT ENT exam: Present: normal exam - Neck Neck exam: Present: normal inspection - Respiratory Respiratory exam: Present: clear to auscultation bilaterally - Cardiovascular Cardiovascular exam: Present: regular rate and rhythm - GI/Abdominal GI/Abdominal exam: Present: normal bowel sounds - Extremities Exam Extremities exam: Present: normal inspection - Neurological Exam Neurological exam: Present: alert, oriented X3 - Psychiatric Psychiatric exam: Present: normal affect, normal mood Results - Labs CBC & BMP: 08/19/16 04:21 08/19/16 04:21
[2016-08-19] MEDS: CALCIUM ACETATE 667 MG CAPSULE PO SCH ×2 (11:48→18:21)
--- NOTE | 2016-08-19 16:30 | Discharge Summary ---
Hospital Course - Hospital Course Hospital Course: This patient is a 65-year-old -[place] female who became short of breath and required intubation outside facility. Following intubation she was transferred here. She has had this situation occur where she has significant pulmonary edema. She is on dialysis. She is admitted to our service. We consulted pulmonary to manage the vent. We consulted nephrology to manage dialysis. When she had dialysis she was easily weaned off the ventilator. Patient is doing well status post extubation. We transferred her upstairs. She is having dialysis again today. Discussed the case with Dr. Kang. She is back to her normal state and she is eligible for discharge at this time. Both times recently was after eating watermelon I recommended that she not eat watermelon anymore. Diagnosis - Discharge Diagnosis (1) Acute respiratory failure Status: Acute (2) ESRD (end stage renal disease) on dialysis Status: Acute (3) Pulmonary edema Status: Acute Discharge Plan - Discharge Data Disposition: Disch To Home/Self Care Condition at Discharge: Stable Discharge Diet: advance to your usual diet Activity: resume usual activities as tolerated - Discharge Medications Continue Pantoprazole Tab [Protonix Tab] 40 mg PO DAILY #90 tablet NS amLODIPine [Norvasc] 2.5 mg PO DAILY Hydrocodone/Acetaminophen [Edwall 7.5-325 Tablet] 1 each PO Q4-6H PRN PRN Reason: Pain Atorvastatin [Lipitor] 20 mg PO BEDTIME tablet Calcium Acetate [Phoslo] 667 mg PO TID W/MEALS capsule Carvedilol [Coreg] 6.25 mg PO BID tablet Isosorbide Mononitrate [Imdur] 15 mg PO DAILY tablet hydrALAZINE TAB [Apresoline Tab] 25 mg PO TID #90 tablet Cinacalcet [Sensipar] 60 mg PO DAILY tablet Ciprofloxacin Tab [Cipro Tab] 500 mg PO DAILY #14 tablet - Follow Up or Referral - Forms/Instructions Exam - Constitutional Vitals: Period Temp Pulse Resp BP Sys/Reynolds Pulse Ox Last 24 Hr 97.5 F-98.6 F 75-90 16-22 88-154/42-87 94-100 Unchanged from previous note Discharge Results Procedures and tests throughout hospitalization: Pending Orders 08/17/16 09:34 Blood Culture Routine 08/20/16 04:00 Basic Metabolic Panel IN AM Labs on day of discharge: Labs from last 24 hours 08/19/16 08/19/16 08/19/16 04:21 04:21 03:16 WBC 8.7 RBC 3.25 L Hgb 7.6 L Hct 23.2 L MCV 71.4 L MCH 23 L MCHC 32.8 RDW 18.5 H Plt Count 433 H MPV 10.5 Neut % (Auto) 59.8 Lymph % (Auto) 21.2 L Grundy % (Auto) 12.1 Eos % (Auto) 5.8 Baso % (Auto) 0.2 Neut # (Auto) 5.2 Lymph # (Auto) 1.9 Grundy # (Auto) 1.1 H Eos # (Auto) 0.5 Baso # (Auto) 0.0 Immature Gran % 0.9 Nucleated RBC % 0.0 Immature Gran # 0.08 Nucleated RBCs # 0.00 ABG pH 7.523 H ABG pCO2 35.7 ABG pO2 79.8 L ABG HCO3 28.7 H ABG Total CO2 29.8 H ABG O2 Saturation 96.7 ABG Base Excess 5.6 H FiO2 21.00 Sodium 135 L Potassium 4.1 Chloride 96 L Carbon Dioxide 27 Anion Gap 16.1 H BUN 23 H D Creatinine 7.00 H GFR Calculation 7 BUN/Creatinine Ratio 3.00 L Glucose 73 L Calculated Osmolality 272.1 L Calcium 7.2 L Magnesium 2.3 Preliminary micro results at discharge 08/17/16 09:34 Blood Culture - Preliminary Blood No growth at 1 day 08/17/16 09:34 Blood Culture - Preliminary Blood No growth at 1 day DS: Provider Date of admission: 08/17/16 00:50 Primary care physician: . No PCP Attending physician on admission: Shantanu Bonilla MD Consults: 08/17/16 00:51 Consult to Physician [CONS] Routine Comment: On-call physician/acute pulmonary edema/intubated Consulting Provider: Consult to Specialist Group: Pulmonology When should Consulting Provider be notified: In am Person Notified: Dr Pope Date Notified: 08/17/16 Time Notified: 08:30 08/17/16 00:52 Consult to Physician [CONS] Routine Comment: On-call physician/end-stage renal disease/dialysis Consulting Provider: Orlin Weiss Jr. Consulting Provider Notified: Yes Consult to Specialist Group: Nephrology When should Consulting Provider be notified: In am Person Notified: WILLIAMS Date Notified: 08/17/16 Time Notified: 08:25 08/17/16 03:10 Consult to Dietitian [CONS] Routine Reason for Dietitian: Dietary Consult 08/17/16 22:04 Consult to Dietitian [CONS] Routine Reason for Dietitian: Dietary Consult Discharging clinician: Kenton Ayon MD
--- NOTE | 2016-08-19 16:58 | Dialysis Note ---
Dialysis Note - Dialysis Note Patient seen on dialysis earlier today. Blood pressure at that time is 140/80. She tolerated the procedure no acute changes she is eager to go home. Discussed the case with Dr. Mcnamara and she is prepared for discharge home today. Will follow an outpatient hemodialysis.
[2016-08-19 17:49] VITALS: BP 153/62
== END 2016-08-19 18:50 | disposition home or self-care (01) | DRG 208 ==
LOC: EDUNIT# → EDBD → N.ED 23:52 → N.EDINP 08-17 00:50 → SUATTDRO 08-17 00:50 → N.ICU 08-17 02:05 → N.5E 08-19 11:18
PROVIDERS: ADMIT Internal Medicine Infectious Disease; ATTEND Internal Medicine

== ENCOUNTER 2018-04-25 03:34 | Inpatient (IN) ==
[2018-04-25 04:46] LABS: Allen Test Positive; Pt O2 Delivery Device Ventilator
[2018-04-25 04:47] LABS: ABG Base Excess 5.3 MMOL/L (-2.5-2.5); ABG HCO3 31.6 MMOL/L (20-26); ABG Oxygen Saturation 92.1 % (95-100); ABG PCO2 55.6 MM HG (35-48); ABG PH 7.373 (7.35-7.45); ABG PO2 71.4 MM HG (80-95); ABG TCO2 33.3 MMOL/L (23-27)
[2018-04-25 04:57] LABS: Apearance,Urine CLEAR (Clear); Bilirubin,Urine Negative (Negative); Blood, Urine Moderate mg/dL (Negative); Glucose,Urine (UA) 50 mg/dL (Negative); Ketones,Urine Negative (Negative); Nitrite,Urine Negative (Negative); Protein,Urine 100 MG/DL; RBC,Urine 1 /HPF (0-4); Squamous Epithelial Cell,Urine Occasional /HPF (0-10); Urine Color Yellow (Yellow); Urine Urobilinogen < 2.0 EU/DL (0.2-1.0); WBC,Urine <1 /HPF (0-6)
[2018-04-25 05:04] LABS: PT Patient Result 11.3 SECS; Partial Thromboplastin Time 27.7 SECS (0-40)
[2018-04-25 05:10] LABS: Alanine Aminotransferase < 9 U/L (13-56); Albumin 2.7 G/DL (3.4-5.0); Alkaline Phosphatase 133 U/L (45-117); Aspartate Amino Transferase 19 U/L (0-37); Bilirubin,Total < 0.39 MG/DL (0.2-1.0); Blood Urea Nitrogen 36 MG/DL (7-18); Calcium 8.7 MG/DL (8.5-10.1); Glucose 101 MG/DL (74-106); Potassium 3.9 MMOL/L (3.5-5.1); Sodium 136 MMOL/L (136-145); Total Protein 8.4 G/DL (6.4-8.3)
[2018-04-25] MEDS ORDERED: ALBUTEROL 2.5 MG/3 ML NEB RESP TX PRN (05:31)
[2018-04-25] MEDS ORDERED: ONDANSETRON 4 MG/2 ML VIAL IV PRN (05:31)
[2018-04-25] MEDS ORDERED: MORPHINE 4 MG/1 ML VIAL IV PRN (05:31)
[2018-04-25] MEDS ORDERED: PROPOFOL 1,000 MG/100 ML BOTTLE IV SCH (06:00)
[2018-04-25] MEDS: PROPOFOL 1,000 MG/100 ML BOTTLE IV SCH ×4 (06:57→20:31)
[2018-04-25] MEDS: ALBUTEROL/IPRATROPIUM 3 ML NEB RESP TX SCH ×3 (07:17→19:15)
[2018-04-25 08:09] LABS: Basophils % 0.2 % (0.0-0.8); Hematocrit 21.7 VOL% (35.7-47.0); Immature Granulocytes % 1.2 %; Immature Granulocytes Absolute 0.15 #; Lymphocytes # 0.5 10*3/uL (1.4-4.0); Lymphocytes % 3.7 % (21.3-54.2); Mean Corpuscular HGB Conc 32.3 GM/DL (32-36); Mean Corpuscular Hemoglobin 26 PG (27-34); Mean Corpuscular Volume 78.9 FL (87-102); Mean Platelet Volume 10.8 FL (9.6-12.0); Monocytes # 0.8 10*3/uL (0.11-0.8); Monocytes % 6.1 % (1.7-12.7); Neutrophils # 11.4 10*3/uL (1.4-7.4); Neutrophils % 88.8 % (38.7-73.9); Platelet Count 303 T/CUMM (130-400); Red Blood Count 2.75 MC/CUMM (3.8-5.5); Red Cell Distribution Width 17.8 % (9.3-17.3); White Blood Count 12.8 T/CUMM (4-12)
[2018-04-25 08:20] LABS: Anisocytosis 2+; Band Neutrophils 7 % (0-10); Lymphocytes 6 % (20-55); Platelet Estimate Normal; Poikilocytosis 1+; Segmented Neutrophils 84 % (50-85); Total Cells Counted 100
[2018-04-25 08:21] LABS: Polychromasia Slight; Smudge Cells Few
[2018-04-25] MEDS ORDERED: ENOXAPARIN 30 MG/0.3 ML SYRINGE SUBCUT SCH (09:00)
[2018-04-25] MEDS: PANTOPRAZOLE 40 MG VIAL IV SCH (09:24)
[2018-04-25] MEDS: FUROSEMIDE 40 MG/4 ML VIAL IV SCH ×2 (09:27→15:53)
[2018-04-25] MEDS: HEPARIN 5,000 UNIT/1 ML VIAL SUBCUT SCH ×2 (09:50→21:26)
[2018-04-25 10:03] LABS: ABG Base Excess 5.5 MMOL/L (-2.5-2.5); ABG HCO3 29.4 MMOL/L (20-26); ABG Oxygen Saturation 98.6 % (95-100); ABG PCO2 40.4 MM HG (35-48); ABG PO2 136.9 MM HG (80-95); ABG TCO2 30.7 MMOL/L (23-27); Pt O2 Delivery Device Ventilator
[2018-04-25] MEDS: hydrALAZINE 25 MG TABLET PO SCH ×2 (15:53→21:24)
[2018-04-25] MEDS ORDERED: ACETAMINOPHEN 650 MG SUPP RECTAL ONE (19:54)
[2018-04-25] MEDS ORDERED: VANCOMYCIN INJ 1,000 MG in SODIUM CHLORIDE 0.9% 250 ML IV ONE (21:00)
[2018-04-25] MEDS: ATORVASTATIN 20 MG TABLET PO SCH (21:23)
[2018-04-25] MEDS: LEVOFLOXACIN INJ 500 MG in PREMIX 1 EACH IV SCH (21:23)
[2018-04-25] MEDS: CARVEDILOL 6.25 MG TABLET PO SCH (21:24)
[2018-04-25] MEDS: PIPERACILLIN/TAZOBACTAM 3,375 MG in SODIUM CHLORIDE 0.9% 100 ML IV SCH (22:27)
[2018-04-25 22:33] LABS: Apearance,Urine CLEAR (Clear); Bilirubin,Urine Negative (Negative); Blood, Urine Moderate mg/dL (Negative); Glucose,Urine (UA) Negative (Negative); Ketones,Urine Negative (Negative); Nitrite,Urine Negative (Negative); Protein,Urine 100 MG/DL; RBC,Urine 49 /HPF (0-4); Squamous Epithelial Cell,Urine Occasional /HPF (0-10); Urine Color Yellow (Yellow); Urine Urobilinogen < 2.0 EU/DL (0.2-1.0); WBC,Urine 6 /HPF (0-6)
[2018-04-26] MEDS: ALBUTEROL/IPRATROPIUM 3 ML NEB RESP TX SCH ×4 (00:32→21:10)
[2018-04-26 03:02] LABS: ABG Base Excess 4.4 MMOL/L (-2.5-2.5); ABG HCO3 28.4 MMOL/L (20-26); ABG Oxygen Saturation 99.8 % (95-100); ABG PCO2 36.7 MM HG (35-48); ABG PH 7.487 (7.35-7.45); ABG TCO2 24.5 MMOL/L (23-27); Allen Test Positive; Pt O2 Delivery Device Ventilator
[2018-04-26] MEDS: PROPOFOL 1,000 MG/100 ML BOTTLE IV SCH ×5 (03:07→21:51)
[2018-04-26 06:14] LABS: Basophils % 0.3 % (0.0-0.8); Hematocrit 42.2 VOL% (35.7-47.0); Hemoglobin 13.7 GM/DL (12.0-16.0); Immature Granulocytes % 0.7 %; Immature Granulocytes Absolute 0.06 #; Lymphocytes # 1.2 10*3/uL (1.4-4.0); Lymphocytes % 14.3 % (21.3-54.2); Mean Corpuscular HGB Conc 32.5 GM/DL (32-36); Mean Corpuscular Hemoglobin 24 PG (27-34); Mean Corpuscular Volume 74.7 FL (87-102); Monocytes # 0.5 10*3/uL (0.11-0.8); NRBC # 0.03 10*3/uL; Neutrophils # 6.8 10*3/uL (1.4-7.4); Neutrophils % 78.7 % (38.7-73.9); Platelet Count 214 T/CUMM (130-400); Red Blood Count 5.65 MC/CUMM (3.8-5.5); Red Cell Distribution Width 21.3 % (9.3-17.3); White Blood Count 8.7 T/CUMM (4-12)
[2018-04-26 07:04] LABS: Calcium 8.8 MG/DL (8.5-10.1); Osmolality,Calculated 271.2 MOS/KG (273-304); Potassium 3.8 MMOL/L (3.5-5.1)
[2018-04-26] MEDS: hydrALAZINE 25 MG TABLET PO SCH ×3 (08:16→21:38)
[2018-04-26] MEDS: CARVEDILOL 6.25 MG TABLET PO SCH ×2 (08:16→21:38)
[2018-04-26] MEDS: ISOSORBIDE MONONITRATE 30 MG TABLET PO SCH (08:16)
[2018-04-26] MEDS: PANTOPRAZOLE 40 MG VIAL IV SCH (08:17)
[2018-04-26] MEDS: FUROSEMIDE 40 MG/4 ML VIAL IV SCH (08:20)
[2018-04-26] MEDS: HEPARIN 5,000 UNIT/1 ML VIAL SUBCUT SCH ×2 (08:30→21:37)
[2018-04-26] MEDS: PIPERACILLIN/TAZOBACTAM 3,375 MG in SODIUM CHLORIDE 0.9% 100 ML IV SCH ×2 (11:07→23:44)
[2018-04-26] MEDS: ATORVASTATIN 20 MG TABLET PO SCH (21:38)
[2018-04-27] MEDS: ALBUTEROL/IPRATROPIUM 3 ML NEB RESP TX SCH ×4 (01:02→19:37)
[2018-04-27 03:27] LABS: ABG HCO3 25.3 MMOL/L (20-26); ABG Oxygen Saturation 98.9 % (95-100); ABG PCO2 37.6 MM HG (35-48); ABG PH 7.433 (7.35-7.45); ABG TCO2 22.5 MMOL/L (23-27); Pt O2 Delivery Device Ventilator
[2018-04-27] MEDS: PROPOFOL 1,000 MG/100 ML BOTTLE IV SCH (04:45)
[2018-04-27 05:01] LABS: Basophils % 0.3 % (0.0-0.8); Eosinophils % 0.4 % (0.00-10.9); Hematocrit 31.6 VOL% (35.7-47.0); Immature Granulocytes % 0.7 %; Immature Granulocytes Absolute 0.07 #; Lymphocytes # 1.2 10*3/uL (1.4-4.0); Lymphocytes % 12.4 % (21.3-54.2); Mean Corpuscular HGB Conc 33.2 GM/DL (32-36); Mean Corpuscular Hemoglobin 25 PG (27-34); Mean Corpuscular Volume 74.4 FL (87-102); Mean Platelet Volume 10.8 FL (9.6-12.0); Monocytes # 0.8 10*3/uL (0.11-0.8); Monocytes % 7.6 % (1.7-12.7); NRBC # 0.02 10*3/uL; Neutrophils # 7.8 10*3/uL (1.4-7.4); Neutrophils % 78.6 % (38.7-73.9); Red Cell Distribution Width 20.8 % (9.3-17.3); White Blood Count 9.9 T/CUMM (4-12)
[2018-04-27 05:03] LABS: Hemoglobin 10.5 GM/DL (12.0-16.0); Red Blood Count 4.25 MC/CUMM (3.8-5.5)
[2018-04-27 05:04] LABS: Platelet Count 288 T/CUMM (130-400)
[2018-04-27 05:10] LABS: Calcium 8.4 MG/DL (8.5-10.1); Osmolality,Calculated 275.4 MOS/KG (273-304); Potassium 3.7 MMOL/L (3.5-5.1)
[2018-04-27 05:17] LABS: Hypochromasia 1+; Platelet Estimate Adequate
[2018-04-27 06:18] VITALS: BP 119/54
[2018-04-27] MEDS: PANTOPRAZOLE 40 MG VIAL IV SCH (08:08)
[2018-04-27] MEDS: ISOSORBIDE MONONITRATE 30 MG TABLET PO SCH (08:08)
[2018-04-27] MEDS: hydrALAZINE 25 MG TABLET PO SCH ×3 (08:08→21:00)
[2018-04-27] MEDS: CARVEDILOL 6.25 MG TABLET PO SCH ×2 (08:08→21:00)
[2018-04-27] MEDS: HEPARIN 5,000 UNIT/1 ML VIAL SUBCUT SCH ×2 (10:31→21:00)
[2018-04-27] MEDS ORDERED: DEXTROSE 50% 25 GM/50 ML SYRINGE IV ONE (12:14)
[2018-04-27] MEDS ORDERED: DEXTROSE 5% 1,000 ML IV SCH (12:30)
[2018-04-27] MEDS: PIPERACILLIN/TAZOBACTAM 3,375 MG in SODIUM CHLORIDE 0.9% 100 ML IV SCH ×2 (12:38→23:24)
[2018-04-27] MEDS: LEVOFLOXACIN INJ 500 MG in PREMIX 1 EACH IV SCH (21:00)
[2018-04-27] MEDS: ATORVASTATIN 20 MG TABLET PO SCH (21:00)
[2018-04-27] MEDS: ACETAMINOPHEN 325 MG TABLET PO PRN (21:16)
[2018-04-28] MEDS: ALBUTEROL/IPRATROPIUM 3 ML NEB RESP TX SCH ×3 (00:12→12:53)
[2018-04-28] MEDS: PROPOFOL 1,000 MG/100 ML BOTTLE IV SCH (04:23)
[2018-04-28] MEDS: ACETAMINOPHEN 325 MG TABLET PO PRN (04:23)
[2018-04-28 05:52] LABS: Alanine Aminotransferase < 6 U/L (13-56); Albumin 2.1 G/DL (3.4-5.0); Alkaline Phosphatase 85 U/L (45-117); Aspartate Amino Transferase 18 U/L (0-37); Blood Urea Nitrogen 18 MG/DL (7-18); Calcium 8.9 MG/DL (8.5-10.1); Glucose 83 MG/DL (74-106); Osmolality,Calculated 268.2 MOS/KG (273-304); Potassium 3.4 MMOL/L (3.5-5.1); Sodium 134 MMOL/L (136-145); Total Protein 7.7 G/DL (6.4-8.3)
[2018-04-28] MEDS: ISOSORBIDE MONONITRATE 30 MG TABLET PO SCH (09:27)
[2018-04-28] MEDS: HEPARIN 5,000 UNIT/1 ML VIAL SUBCUT SCH (09:27)
[2018-04-28] MEDS: PANTOPRAZOLE 40 MG VIAL IV SCH (09:27)
[2018-04-28] MEDS: CARVEDILOL 6.25 MG TABLET PO SCH (09:29)
[2018-04-28] MEDS: hydrALAZINE 25 MG TABLET PO SCH (11:26)
[2018-04-28] MEDS: PIPERACILLIN/TAZOBACTAM 3,375 MG in SODIUM CHLORIDE 0.9% 100 ML IV SCH (11:53)
== END 2018-04-28 14:15 | DRG 208 ==
LOC: EDBD → EDUNIT# → N.ED 03:34 → N.EDINP 05:31 → N.CC 06:25
PROVIDERS: ADMIT Internal Medicine; ATTEND Internal Medicine

== ENCOUNTER 2018-07-18 03:26 | Inpatient (IN) ==
[2018-07-18] MEDS ORDERED: FUROSEMIDE 100 MG/10 ML VIAL IV STA (03:48)
[2018-07-18 03:58] LABS: Basophils # 0.1 10*3/uL (0.0-0.2); Basophils % 0.3 % (0.0-0.8); Eosinophils # 0.2 10*3/uL (0.0-0.87); Eosinophils % 0.8 % (0.00-10.9); Hematocrit 31.4 VOL% (35.7-47.0); Hemoglobin 9.6 GM/DL (12.0-16.0); Immature Granulocytes % 0.9 %; Immature Granulocytes Absolute 0.24 #; Lymphocytes # 2.1 10*3/uL (1.4-4.0); Lymphocytes % 7.9 % (21.3-54.2); Mean Corpuscular HGB Conc 30.6 GM/DL (32-36); Mean Corpuscular Volume 78.1 FL (87-102); Mean Platelet Volume 10.8 FL (9.6-12.0); Monocytes % 4.6 % (1.7-12.7); Neutrophils % 85.5 % (38.7-73.9); Platelet Count 415 T/CUMM (130-400); Red Blood Count 4.02 MC/CUMM (3.8-5.5); Red Cell Distribution Width 18.8 % (9.3-17.3)
[2018-07-18 04:30] LABS: Alanine Aminotransferase 12 U/L (13-56); Albumin 3.3 G/DL (3.4-5.0); Alkaline Phosphatase 249 U/L (45-117); Aspartate Amino Transferase 15 U/L (0-37); Bilirubin,Total < 0.39 MG/DL (0.2-1.0); Blood Urea Nitrogen 41 MG/DL (7-18); Calcium 9.3 MG/DL (8.5-10.1); Glucose 172 MG/DL (74-106); Total Protein 8.6 G/DL (6.4-8.3)
[2018-07-18] MEDS ORDERED: CEFEPIME 2,000 MG in SODIUM CHLORIDE 0.9% 100 ML IV STA (04:42)
[2018-07-18 04:43] LABS: Anisocytosis 1+; Band Neutrophils 2 % (0-10); Lymphocytes 5 % (20-55); Myelocytes 1 %; Segmented Neutrophils 88 % (50-85); Total Cells Counted 100
[2018-07-18 04:44] LABS: Hypochromasia 1+; Platelet Estimate Adequate; Target Cells 1+
[2018-07-18] MEDS ORDERED: VANCOMYCIN INJ 1,000 MG in SODIUM CHLORIDE 0.9% 250 ML IV ONE (05:00)
[2018-07-18 06:20] LABS: ABG Base Excess 3.9 MMOL/L (-2.5-2.5); ABG HCO3 27.8 MMOL/L (20-26); ABG Oxygen Saturation 89.6 % (95-100); ABG PCO2 39.1 MM HG (35-48); ABG PH 7.462 (7.35-7.45); ABG PO2 60.7 MM HG (80-95); ABG TCO2 25.5 MMOL/L (23-27); Allen Test Positive; Pt O2 Delivery Device BIPAP
[2018-07-18] MEDS ORDERED: NICOTINE 21 MG/24 HR PATCH TRANSDERM PRN (06:29)
[2018-07-18] MEDS ORDERED: guaiFENesin/DM ER 600-30 MG TABLET PO PRN (06:29)
[2018-07-18] MEDS ORDERED: ALBUTEROL 2.5 MG/3 ML NEB RESP TX PRN (06:29)
[2018-07-18] MEDS ORDERED: diphenhydrAMINE CAP 25 MG CAPSULE PO PRN (06:29)
[2018-07-18] MEDS ORDERED: ACETAMINOPHEN 325 MG TABLET PO PRN (06:29)
[2018-07-18] MEDS ORDERED: MORPHINE 4 MG/1 ML VIAL IV PRN (06:29)
[2018-07-18] MEDS ORDERED: BISACODYL 5 MG TABLET PO PRN (06:29)
[2018-07-18] MEDS ORDERED: ONDANSETRON 4 MG/2 ML VIAL IV PRN (06:29)
[2018-07-18] MEDS ORDERED: VANCOMYCIN INJ 1,000 MG in SODIUM CHLORIDE 0.9% 250 ML IV SCH (06:30)
[2018-07-18] MEDS: ALBUTEROL/IPRATROPIUM 3 ML NEB RESP TX SCH ×3 (08:20→19:30)
[2018-07-18] MEDS: PANTOPRAZOLE 40 MG TABLET PO SCH (09:34)
[2018-07-18] MEDS: methylPREDNISolone SOD SUC 40 MG/1 ML VIAL IV SCH ×2 (17:38→19:12)
[2018-07-18] MEDS: CARVEDILOL 6.25 MG TABLET PO SCH (23:04)
[2018-07-18] MEDS: ATORVASTATIN 20 MG TABLET PO SCH (23:04)
[2018-07-19] MEDS: ALBUTEROL/IPRATROPIUM 3 ML NEB RESP TX SCH ×4 (00:18→19:06)
[2018-07-19 05:21] LABS: Basophils % 0.2 % (0.0-0.8); Hematocrit 29.2 VOL% (35.7-47.0); Immature Granulocytes % 0.7 %; Immature Granulocytes Absolute 0.08 #; Lymphocytes # 0.8 10*3/uL (1.4-4.0); Lymphocytes % 6.8 % (21.3-54.2); Mean Corpuscular HGB Conc 30.8 GM/DL (32-36); Mean Corpuscular Volume 75.5 FL (87-102); Monocytes % 4.1 % (1.7-12.7); NRBC # 0.02 10*3/uL; Neutrophils % 88.2 % (38.7-73.9); Platelet Count 385 T/CUMM (130-400); Red Blood Count 3.87 MC/CUMM (3.8-5.5); Red Cell Distribution Width 18.5 % (9.3-17.3); White Blood Count 12.3 T/CUMM (4-12)
[2018-07-19] MEDS: methylPREDNISolone SOD SUC 40 MG/1 ML VIAL IV SCH ×2 (05:34→17:41)
[2018-07-19] MEDS: CEFEPIME 1,000 MG in SYRINGE 1 EACH IV SCH (05:34)
[2018-07-19 05:39] LABS: Bilirubin,Total 0.7 MG/DL (0.2-1.0); Calcium 9.8 MG/DL (8.5-10.1); Osmolality,Calculated 276.2 MOS/KG (273-304); Total Protein 8.2 G/DL (6.4-8.3)
[2018-07-19] MEDS: CALCIUM ACETATE 667 MG CAPSULE PO SCH ×3 (08:28→16:36)
[2018-07-19] MEDS: CARVEDILOL 6.25 MG TABLET PO SCH ×2 (09:00→20:58)
[2018-07-19] MEDS: amLODIPine 2.5 MG TABLET PO SCH (09:00)
[2018-07-19] MEDS ORDERED: VANCOMYCIN INJ 1,000 MG in SODIUM CHLORIDE 0.9% 250 ML IV PRN (09:00)
[2018-07-19] MEDS: ISOSORBIDE MONONITRATE 30 MG TABLET PO SCH (09:00)
[2018-07-19] MEDS: CINACALCET 30 MG TABLET PO SCH (16:35)
[2018-07-19] MEDS: CLOPIDOGREL 75 MG TABLET PO SCH (16:36)
[2018-07-19] MEDS: PANTOPRAZOLE 40 MG TABLET PO SCH (16:36)
[2018-07-19] MEDS ORDERED: VANCOMYCIN INJ 500 MG in SODIUM CHLORIDE 0.9% 100 ML IV ONE (17:00)
[2018-07-19] MEDS: ATORVASTATIN 20 MG TABLET PO SCH (20:58)
[2018-07-20] MEDS: ALBUTEROL/IPRATROPIUM 3 ML NEB RESP TX SCH ×2 (00:58→07:38)
[2018-07-20 05:16] LABS: Osmolality,Calculated 274.2 MOS/KG (273-304)
[2018-07-20] MEDS: CEFEPIME 1,000 MG in SYRINGE 1 EACH IV SCH (05:45)
[2018-07-20] MEDS: methylPREDNISolone SOD SUC 40 MG/1 ML VIAL IV SCH (06:56)
[2018-07-20] MEDS: CLOPIDOGREL 75 MG TABLET PO SCH (08:16)
[2018-07-20] MEDS: CARVEDILOL 6.25 MG TABLET PO SCH (08:16)
[2018-07-20] MEDS: CALCIUM ACETATE 667 MG CAPSULE PO SCH ×2 (08:16→11:26)
[2018-07-20] MEDS: CINACALCET 30 MG TABLET PO SCH (08:16)
[2018-07-20] MEDS: amLODIPine 2.5 MG TABLET PO SCH (08:17)
[2018-07-20] MEDS: ISOSORBIDE MONONITRATE 30 MG TABLET PO SCH (08:17)
[2018-07-20] MEDS: PANTOPRAZOLE 40 MG TABLET PO SCH (08:17)
[2018-07-20 12:09] VITALS: BP 146/76
== END 2018-07-20 12:26 | disposition home or self-care (01) | DRG 291 ==
LOC: EDBD → EDUNIT# → SUATTDRO → N.ED 03:26 → N.EDINP 06:29 → N.CC 13:00 → N.5E 07-19 13:12
PROVIDERS: ADMIT Internal Medicine; ATTEND Internal Medicine

== ENCOUNTER 2018-11-23 01:16 | Inpatient (IN) ==
[2018-11-23] MEDS: NITROGLYCERIN DRIP 50 MG/250 ML BOTTLE IV PRN ×3 (02:55→19:37)
[2018-11-23] MEDS ORDERED: INFLUENZA VIRUS VACCINE 0.5 ML SYRINGE IM ONE (03:04)
[2018-11-23] MEDS ORDERED: FUROSEMIDE 100 MG/10 ML VIAL IV ONE (03:09)
[2018-11-23] MEDS ORDERED: FUROSEMIDE 100 MG/10 ML VIAL ONE (03:11)
[2018-11-23] MEDS ORDERED: FUROSEMIDE 20 MG/2 ML VIAL ONE (03:11)
[2018-11-23] MEDS ORDERED: metOLazone 5 MG TABLET PO ONE (03:21)
[2018-11-23] MEDS ORDERED: hydrALAZINE 20 MG/1 ML VIAL IV ONE (03:23)
[2018-11-23] MEDS ORDERED: ONDANSETRON 4 MG/2 ML VIAL IV PRN (03:24)
[2018-11-23] MEDS ORDERED: ACETAMINOPHEN 325 MG TABLET PO PRN (03:24)
[2018-11-23] MEDS ORDERED: DEXTROSE 50% 25 GM/50 ML VIAL IV PRN (04:08)
[2018-11-23] MEDS ORDERED: GLUCAGON 1 MG VIAL IM PRN (04:08)
[2018-11-23] MEDS ORDERED: hydrALAZINE 20 MG/1 ML VIAL IV PRN ×2 (04:09→04:39)
[2018-11-23 05:06] LABS: Basophils % 0.2 % (0.0-0.8); Eosinophils % 0.4 % (0.00-10.9); Hematocrit 30.2 VOL% (35.7-47.0); Hemoglobin 9.4 GM/DL (12.0-16.0); Immature Granulocytes % 0.7 %; Immature Granulocytes Absolute 0.06 #; Lymphocytes # 1.2 10*3/uL (1.4-4.0); Mean Corpuscular HGB Conc 31.1 GM/DL (32-36); Mean Corpuscular Volume 71.2 FL (87-102); Mean Platelet Volume 10.1 FL (9.6-12.0); Monocytes % 10.8 % (1.7-12.7); Neutrophils % 74.9 % (38.7-73.9); Platelet Count 242 T/CUMM (130-400); Red Blood Count 4.24 MC/CUMM (3.8-5.5); Red Cell Distribution Width 25.4 % (9.3-17.3); White Blood Count 9.2 T/CUMM (4-12)
[2018-11-23 05:41] LABS: Albumin 3.2 G/DL (3.4-5.0); Bilirubin,Total 0.5 MG/DL (0.2-1.0); Calcium 9.3 MG/DL (8.5-10.1); Osmolality,Calculated 289.4 MOS/KG (273-304)
[2018-11-23] MEDS: HEPARIN 5,000 UNIT/1 ML VIAL SUBCUT SCH ×2 (05:46→16:25)
[2018-11-23] MEDS: PANTOPRAZOLE 40 MG TABLET PO SCH (09:33)
[2018-11-23] MEDS: INSULIN LISPRO 100 UNIT/ML SUBCUT SCH ×4 (09:42→20:13)
[2018-11-23] MEDS ORDERED: amLODIPine 2.5 MG TABLET PO SCH (11:30)
[2018-11-23] MEDS: ISOSORBIDE MONONITRATE 30 MG TABLET PO SCH (12:19)
[2018-11-23] MEDS: CARVEDILOL 6.25 MG TABLET PO SCH ×2 (12:20→20:12)
[2018-11-23] MEDS: CLOPIDOGREL 75 MG TABLET PO SCH (12:20)
[2018-11-23] MEDS: ATORVASTATIN 20 MG TABLET PO SCH (20:12)
[2018-11-24] MEDS: HEPARIN 5,000 UNIT/1 ML VIAL SUBCUT SCH ×2 (04:41→16:50)
[2018-11-24 04:53] LABS: Basophils % 0.5 % (0.0-0.8); Eosinophils # 0.1 10*3/uL (0.0-0.87); Eosinophils % 1.3 % (0.00-10.9); Hematocrit 27.9 VOL% (35.7-47.0); Hemoglobin 8.9 GM/DL (12.0-16.0); Immature Granulocytes % 0.3 %; Immature Granulocytes Absolute 0.02 #; Lymphocytes # 1.5 10*3/uL (1.4-4.0); Lymphocytes % 25.1 % (21.3-54.2); Mean Corpuscular HGB Conc 31.9 GM/DL (32-36); Mean Corpuscular Volume 69.2 FL (87-102); Neutrophils % 58.8 % (38.7-73.9); Platelet Count 246 T/CUMM (130-400); Red Blood Count 4.03 MC/CUMM (3.8-5.5); White Blood Count 6.1 T/CUMM (4-12)
[2018-11-24 05:09] LABS: Calcium 9.3 MG/DL (8.5-10.1); Osmolality,Calculated 281.4 MOS/KG (273-304)
[2018-11-24 05:25] LABS: Hypochromasia 2+; Platelet Estimate Adequate
[2018-11-24 05:26] LABS: Ovalocytes Slight; Target Cells Few
[2018-11-24] MEDS ORDERED: amLODIPine 2.5 MG TABLET PO SCH (07:52)
[2018-11-24] MEDS: INSULIN LISPRO 100 UNIT/ML SUBCUT SCH ×4 (08:39→21:19)
[2018-11-24] MEDS: ISOSORBIDE MONONITRATE 30 MG TABLET PO SCH (09:32)
[2018-11-24] MEDS: CLOPIDOGREL 75 MG TABLET PO SCH (09:32)
[2018-11-24] MEDS: amLODIPine 5 MG TABLET PO SCH (09:33)
[2018-11-24] MEDS: CARVEDILOL 12.5 MG TABLET PO SCH ×2 (09:33→21:19)
[2018-11-24] MEDS: PANTOPRAZOLE 40 MG TABLET PO SCH (09:33)
[2018-11-24] MEDS ORDERED: NF- (Ferric Citrate [Auryxia] 420 MG) PO SCH (10:43)
[2018-11-24] MEDS ORDERED: LIDOCAINE/PRILOCAINE CREAM 5 GM TUBE TOP ONE (21:04)
[2018-11-24] MEDS: ATORVASTATIN 20 MG TABLET PO SCH (21:19)
[2018-11-25] MEDS: HEPARIN 5,000 UNIT/1 ML VIAL SUBCUT SCH (04:32)
[2018-11-25 05:22] LABS: Basophils % 0.3 % (0.0-0.8); Eosinophils # 0.1 10*3/uL (0.0-0.87); Eosinophils % 1.8 % (0.00-10.9); Hematocrit 27.8 VOL% (35.7-47.0); Hemoglobin 8.9 GM/DL (12.0-16.0); Immature Granulocytes % 0.3 %; Immature Granulocytes Absolute 0.02 #; Lymphocytes % 32.7 % (21.3-54.2); Monocytes % 13.3 % (1.7-12.7); Neutrophils % 51.6 % (38.7-73.9); Platelet Count 237 T/CUMM (130-400); Red Blood Count 3.97 MC/CUMM (3.8-5.5); Red Cell Distribution Width 24.9 % (9.3-17.3); White Blood Count 6.2 T/CUMM (4-12)
[2018-11-25 05:47] LABS: Calcium 8.9 MG/DL (8.5-10.1); Osmolality,Calculated 284.8 MOS/KG (273-304)
[2018-11-25 05:50] LABS: Hypochromasia 1+; Platelet Estimate Adequate
[2018-11-25] MEDS ORDERED: LIDOCAINE/PRILOCAINE CREAM 5 GM TUBE TOP PRN (08:02)
[2018-11-25] MEDS: INSULIN LISPRO 100 UNIT/ML SUBCUT SCH ×2 (09:04→12:29)
[2018-11-25] MEDS: amLODIPine 5 MG TABLET PO SCH (12:26)
[2018-11-25] MEDS: CARVEDILOL 12.5 MG TABLET PO SCH (12:26)
[2018-11-25] MEDS: ISOSORBIDE MONONITRATE 30 MG TABLET PO SCH (12:27)
[2018-11-25] MEDS: PANTOPRAZOLE 40 MG TABLET PO SCH (12:27)
[2018-11-25] MEDS: CLOPIDOGREL 75 MG TABLET PO SCH (12:27)
[2018-11-25 12:35] VITALS: BP 146/81
== END 2018-11-25 13:02 | disposition home or self-care (01) | DRG 291 ==
LOC: SUATTDRO 02:48 → N.CC 02:48 → N.5E 11-24 15:29
PROVIDERS: ADMIT Internal Medicine; ATTEND Hospitalist

== ENCOUNTER 2019-01-08 22:51 | Observation (INO) ==
[2019-01-09] MEDS ORDERED: ONDANSETRON 4 MG/2 ML VIAL IV PRN (00:48)
[2019-01-09] MEDS ORDERED: ACETAMINOPHEN 325 MG TABLET PO PRN (00:48)
[2019-01-09] MEDS ORDERED: ALBUTEROL 2.5 MG/3 ML NEB RESP TX PRN (00:48)
[2019-01-09] MEDS ORDERED: hydrALAZINE 20 MG/1 ML VIAL IV PRN (00:53)
[2019-01-09] MEDS ORDERED: GLUCAGON 1 MG VIAL IM PRN (01:23)
[2019-01-09] MEDS ORDERED: DEXTROSE 50% 25 GM/50 ML VIAL IV PRN (01:23)
[2019-01-09 07:11] LABS: Basophils % 0.5 % (0.0-0.8); Eosinophils % 0.4 % (0.00-10.9); Hematocrit 29.9 VOL% (35.7-47.0); Hemoglobin 9.6 GM/DL (12.0-16.0); Immature Granulocytes % 0.2 %; Immature Granulocytes Absolute 0.02 #; Lymphocytes # 1.5 10*3/uL (1.4-4.0); Lymphocytes % 18.2 % (21.3-54.2); Mean Corpuscular HGB Conc 32.1 GM/DL (32-36); Mean Corpuscular Volume 73.3 FL (87-102); Mean Platelet Volume 10.3 FL (9.6-12.0); Monocytes % 13.5 % (1.7-12.7); Neutrophils % 67.2 % (38.7-73.9); Platelet Count 362 T/CUMM (130-400); Red Blood Count 4.08 MC/CUMM (3.8-5.5); Red Cell Distribution Width 21.5 % (9.3-17.3); White Blood Count 8.1 T/CUMM (4-12)
[2019-01-09 07:49] LABS: Alanine Aminotransferase < 6 U/L (13-56); Albumin 3.1 G/DL (3.4-5.0); Alkaline Phosphatase 124 U/L (45-117); Aspartate Amino Transferase 12 U/L (0-37); Blood Urea Nitrogen 53 MG/DL (7-18); Calcium 8.1 MG/DL (8.5-10.1); Estimated Glom Filtration Rate 5 ML/MIN; Glucose 82 MG/DL (74-106); Osmolality,Calculated 280.2 MOS/KG (273-304); Total Protein 7.7 G/DL (6.4-8.3)
[2019-01-09] MEDS ORDERED: LIDOCAINE/PRILOCAINE CREAM 5 GM TUBE TOP ONE (07:56)
[2019-01-09] MEDS: ISOSORBIDE MONONITRATE 30 MG TABLET PO SCH (08:20)
[2019-01-09] MEDS: PANTOPRAZOLE 40 MG TABLET PO SCH (08:22)
[2019-01-09] MEDS: carvediloL 12.5 MG TABLET PO SCH ×2 (08:22→17:40)
[2019-01-09] MEDS: CLOPIDOGREL 75 MG TABLET PO SCH (08:22)
[2019-01-09] MEDS: amLODIPine 5 MG TABLET PO SCH (08:22)
[2019-01-09] MEDS: INSULIN REGULAR 100 UNIT/ML SUBCUT SCH ×4 (08:48→21:24)
[2019-01-09] MEDS: Ferric Citrate [Auryxia] 210 MG PO SCH ×3 (09:52→21:23)
[2019-01-09] MEDS ORDERED: ENOXAPARIN 30 MG/0.3 ML SYRINGE SUBCUT SCH (16:00)
[2019-01-09] MEDS ORDERED: ATORVASTATIN 20 MG TABLET PO SCH (21:00)
[2019-01-10] MEDS: INSULIN REGULAR 100 UNIT/ML SUBCUT SCH (09:13)
[2019-01-10] MEDS: ISOSORBIDE MONONITRATE 30 MG TABLET PO SCH (10:33)
[2019-01-10] MEDS: CLOPIDOGREL 75 MG TABLET PO SCH (10:33)
[2019-01-10] MEDS: amLODIPine 5 MG TABLET PO SCH (10:34)
[2019-01-10] MEDS: Ferric Citrate [Auryxia] 210 MG PO SCH (10:34)
[2019-01-10] MEDS: carvediloL 12.5 MG TABLET PO SCH (10:34)
[2019-01-10] MEDS: PANTOPRAZOLE 40 MG TABLET PO SCH (10:36)
[2019-01-10 13:34] VITALS: BP 134/61
[2019-01-15] MEDS ORDERED: PNEUMOCOCCAL VACCINE (13 VALENT) 0.5 ML SYRINGE IM ONE (00:25)
== END 2019-01-10 13:35 | disposition home or self-care (01) ==
LOC: N.ICU → SUATTDRO 01-09 00:13 → N.5E 01-09 10:30
PROVIDERS: ADMIT Internal Medicine; ATTEND Hospitalist

== ENCOUNTER 2019-07-12 05:20 | Inpatient (IN) ==
[2019-07-12] MEDS: ACETAMINOPHEN 325 MG TABLET PO PRN ×2 (08:00→17:20)
[2019-07-12] MEDS ORDERED: guaiFENesin/DM ER 600-30 MG TABLET PO PRN (08:41)
[2019-07-12] MEDS ORDERED: DOCUSATE SODIUM 100 MG CAPSULE PO PRN (08:41)
[2019-07-12] MEDS ORDERED: DEXTROSE 10% 250 ML BAG IV PRN (08:41)
[2019-07-12] MEDS ORDERED: ONDANSETRON 4 MG/2 ML VIAL IV PRN (08:41)
[2019-07-12] MEDS ORDERED: GLUCAGON 1 MG VIAL IM PRN (08:41)
[2019-07-12] MEDS ORDERED: NITROGLYCERIN DRIP 50 MG/250 ML BOTTLE IV PRN (08:48)
[2019-07-12] MEDS ORDERED: SIMETHICONE CHEW 125 MG TABLET PO PRN (11:38)
[2019-07-12] MEDS: amLODIPine 5 MG TABLET PO SCH (12:00)
[2019-07-12] MEDS: ISOSORBIDE MONONITRATE 30 MG TABLET PO SCH (12:00)
[2019-07-12] MEDS: INSULIN REGULAR 100 UNIT/ML SUBCUT SCH ×3 (14:53→22:48)
[2019-07-12] MEDS ORDERED: NON-FORMULARY MEDICATION (Ferric Citrate [Auryxia] 420 MG) PO SCH (15:00)
[2019-07-12 16:09] LABS: Basophils # 0.1 10*3/uL (0.0-0.2); Basophils % 0.3 % (0.0-0.8); Eosinophils # 0.1 10*3/uL (0.0-0.87); Eosinophils % 0.3 % (0.00-10.9); Hematocrit 33.6 VOL% (35.7-47.0); Hemoglobin 10.7 GM/DL (12.0-16.0); Immature Granulocytes % 0.7 %; Immature Granulocytes Absolute 0.12 #; Lymphocytes # 1.1 10*3/uL (1.4-4.0); Lymphocytes % 6.4 % (21.3-54.2); Mean Corpuscular HGB Conc 31.8 GM/DL (32-36); Neutrophils % 86.3 % (38.7-73.9); Platelet Count 459 T/CUMM (130-400); Red Blood Count 4.87 MC/CUMM (3.8-5.5); Red Cell Distribution Width 18.4 % (9.3-17.3); White Blood Count 17.6 T/CUMM (4-12)
[2019-07-12 16:34] LABS: Albumin 3.1 G/DL (3.4-5.0); Bilirubin,Total 0.6 MG/DL (0.2-1.0); Calcium 9.3 MG/DL (8.5-10.1); Osmolality,Calculated 262.7 MOS/KG (273-304)
[2019-07-12] MEDS: carvediloL 12.5 MG TABLET PO SCH (17:20)
[2019-07-12] MEDS ORDERED: NIFEdipine 10 MG CAPSULE PO PRN (19:50)
[2019-07-12] MEDS: HEPARIN 5,000 UNIT/1 ML VIAL SUBCUT SCH (20:03)
[2019-07-12] MEDS ORDERED: MAGNESIUM SULF RIDER 2 GM in PREMIX 1 EACH IV PRN (22:47)
[2019-07-12] MEDS ORDERED: MAGNESIUM SULF RIDER 4 GM in PREMIX 1 EACH IV PRN (22:47)
[2019-07-12] MEDS: POTASSIUM CHLORIDE 20 MEQ TABLET PO PRN (23:30)
[2019-07-13] MEDS: ATORVASTATIN 20 MG TABLET PO SCH ×2 (00:10→21:15)
[2019-07-13] MEDS: HEPARIN 5,000 UNIT/1 ML VIAL SUBCUT SCH ×3 (00:12→15:43)
[2019-07-13] MEDS: POTASSIUM CHLORIDE 20 MEQ TABLET PO PRN ×3 (01:50→05:30)
[2019-07-13 06:21] LABS: Basophils # 0.1 10*3/uL (0.0-0.2); Basophils % 0.6 % (0.0-0.8); Eosinophils # 0.1 10*3/uL (0.0-0.87); Hematocrit 29.5 VOL% (35.7-47.0); Hemoglobin 9.5 GM/DL (12.0-16.0); Immature Granulocytes % 0.5 %; Immature Granulocytes Absolute 0.05 #; Lymphocytes # 2.1 10*3/uL (1.4-4.0); Lymphocytes % 19.9 % (21.3-54.2); Mean Corpuscular HGB Conc 32.2 GM/DL (32-36); Mean Corpuscular Volume 68.9 FL (87-102); Mean Platelet Volume 10.1 FL (9.6-12.0); Monocytes % 8.1 % (1.7-12.7); Neutrophils % 69.9 % (38.7-73.9); Platelet Count 369 T/CUMM (130-400); Red Blood Count 4.28 MC/CUMM (3.8-5.5); Red Cell Distribution Width 18.1 % (9.3-17.3); White Blood Count 10.4 T/CUMM (4-12)
[2019-07-13 06:42] LABS: Osmolality,Calculated 267.4 MOS/KG (273-304); Risk Ratio 3.21; Thyroid Stimulating Hormone 1.17 uIU/ml (0.358-3.74); VLDL CHOLESTEROL 19.6 MG/DL
[2019-07-13 06:43] LABS: Target Cells Few
[2019-07-13 06:44] LABS: Anisocytosis 1+; Microcytosis 1+
[2019-07-13 06:45] LABS: Acanthocytes Few; Hypochromasia 2+; Platelet Estimate Normal
[2019-07-13] MEDS: CLOPIDOGREL 75 MG TABLET PO SCH (09:05)
[2019-07-13] MEDS: amLODIPine 5 MG TABLET PO SCH (09:05)
[2019-07-13] MEDS: carvediloL 12.5 MG TABLET PO SCH ×2 (09:05→16:07)
[2019-07-13] MEDS: ISOSORBIDE MONONITRATE 30 MG TABLET PO SCH (09:05)
[2019-07-13] MEDS: INSULIN REGULAR 100 UNIT/ML SUBCUT SCH ×4 (09:24→21:15)
[2019-07-13] MEDS ORDERED: LIDOCAINE/PRILOCAINE CREAM 5 GM TUBE TOP PRN (14:40)
[2019-07-14] MEDS: HEPARIN 5,000 UNIT/1 ML VIAL SUBCUT SCH ×2 (01:55→09:00)
[2019-07-14 06:14] LABS: Basophils # 0.1 10*3/uL (0.0-0.2); Basophils % 0.6 % (0.0-0.8); Eosinophils # 0.1 10*3/uL (0.0-0.87); Eosinophils % 1.3 % (0.00-10.9); Hemoglobin 8.6 GM/DL (12.0-16.0); Immature Granulocytes % 0.4 %; Immature Granulocytes Absolute 0.03 #; Lymphocytes % 23.7 % (21.3-54.2); Mean Corpuscular HGB Conc 31.9 GM/DL (32-36); Mean Corpuscular Volume 67.3 FL (87-102); Mean Platelet Volume 10.2 FL (9.6-12.0); Monocytes % 12.7 % (1.7-12.7); Neutrophils % 61.3 % (38.7-73.9); Platelet Count 315 T/CUMM (130-400); Red Blood Count 4.01 MC/CUMM (3.8-5.5); Red Cell Distribution Width 18.3 % (9.3-17.3); White Blood Count 8.6 T/CUMM (4-12)
[2019-07-14 07:22] LABS: Hypochromasia 2+; Target Cells 1+
[2019-07-14 07:23] LABS: Microcytosis 1+; Ovalocytes Few; Platelet Estimate Normal
[2019-07-14 08:24] LABS: Osmolality,Calculated 274.4 MOS/KG (273-304)
[2019-07-14] MEDS: ISOSORBIDE MONONITRATE 30 MG TABLET PO SCH (09:00)
[2019-07-14] MEDS: amLODIPine 5 MG TABLET PO SCH (09:00)
[2019-07-14] MEDS: CLOPIDOGREL 75 MG TABLET PO SCH (09:00)
[2019-07-14] MEDS: carvediloL 12.5 MG TABLET PO SCH (09:00)
[2019-07-14] MEDS: INSULIN REGULAR 100 UNIT/ML SUBCUT SCH (09:48)
[2019-07-14 12:41] VITALS: BP 142/49
== END 2019-07-14 14:40 | disposition home or self-care (01) | DRG 291 ==
LOC: SUATTDRO 07:12 → N.ICU 07:12 → N.2E 07-13 14:21
PROVIDERS: ADMIT Internal Medicine; ATTEND Internal Medicine

== ENCOUNTER 2020-06-23 03:42 | Inpatient (IN) ==
[2020-06-23 04:01] LABS: Basophils # 0.1 10*3/uL (0.0-0.2); Basophils % 0.4 % (0.0-0.8); Eosinophils # 0.3 10*3/uL (0.0-0.87); Eosinophils % 1.9 % (0.00-10.9); Hematocrit 39.7 VOL% (35.7-47.0); Hemoglobin 11.9 GM/DL (12.0-16.0); Immature Granulocytes Absolute 0.17 #; Lymphocytes # 2.2 10*3/uL (1.4-4.0); Lymphocytes % 12.6 % (21.3-54.2); Mean Corpuscular Volume 71.5 FL (87-102); Monocytes % 7.1 % (1.7-12.7); Platelet Count 337 T/CUMM (130-400); Red Blood Count 5.55 MC/CUMM (3.8-5.5); Red Cell Distribution Width 18.9 % (9.3-17.3); White Blood Count 17.4 T/CUMM (4-12)
[2020-06-23] MEDS ORDERED: FUROSEMIDE 40 MG/4 ML VIAL IV STA (04:05)
[2020-06-23 04:23] LABS: Alanine Aminotransferase < 6 U/L (13-56); Albumin 3.4 G/DL (3.4-5.0); Alkaline Phosphatase 343 U/L (45-117); Aspartate Amino Transferase 9 U/L (0-37); Blood Urea Nitrogen 38 MG/DL (7-18); Calcium 9.3 MG/DL (8.5-10.1); Carbon Dioxide 29 MMOL/L (21-32); Estimated Glom Filtration Rate 5 ML/MIN; Glucose 124 MG/DL (74-106); Osmolality,Calculated 284.7 MOS/KG (273-304); Potassium 4.1 MMOL/L (3.5-5.1); Sodium 138 MMOL/L (136-145); Total Protein 8.3 G/DL (6.4-8.2)
[2020-06-23] MEDS ORDERED: LEVOFLOXACIN INJ 500 MG in PREMIX 1 EACH IV STA (04:29)
[2020-06-23] MEDS ORDERED: hydrALAZINE 20 MG/1 ML VIAL IV STA (04:29)
[2020-06-23] MEDS ORDERED: SODIUM CHLORIDE 0.9% 500 ML IV STA (04:29)
[2020-06-23] MEDS ORDERED: hydrALAZINE 20 MG/1 ML VIAL ONE (04:30)
[2020-06-23] MEDS ORDERED: NITROGLYCERIN 2% OINT 1 INCH/GM PACK TOP STA (04:55)
[2020-06-23 05:07] LABS: Schistocytes 1+
[2020-06-23 05:09] LABS: Helmet Cells Few; Hypochromasia 2+; Platelet Estimate Normal; Tear Drop Cells Few
[2020-06-23 05:10] LABS: Ovalocytes 1+; Poikilocytosis 1+
[2020-06-23] MEDS ORDERED: GLUCAGON 1 MG VIAL IM PRN (05:17)
[2020-06-23] MEDS ORDERED: DEXTROSE 50% 25 GM/50 ML VIAL IV PRN (05:17)
[2020-06-23] MEDS ORDERED: ONDANSETRON 4 MG/2 ML VIAL IV PRN (05:17)
[2020-06-23] MEDS ORDERED: NICOTINE 21 MG/24 HR PATCH TRANSDERM PRN (05:17)
[2020-06-23 05:47] LABS: ABG Base Excess 5.4 MMOL/L (-2.5-2.5); ABG HCO3 29.2 MMOL/L (20-26); ABG Oxygen Saturation 93.5 % (95-100); ABG PCO2 44.1 MM HG (35-48); ABG PH 7.444 (7.35-7.45); ABG PO2 70.4 MM HG (80-95)
[2020-06-23] MEDS ORDERED: SIMETHICONE CHEW 125 MG TABLET PO PRN (14:19)
[2020-06-23] MEDS ORDERED: FERRIC CITRATE 210 MG PO SCH (15:00)
[2020-06-23] MEDS: ALBUTEROL/IPRATROPIUM 3 ML NEB RESP TX SCH ×2 (15:21→19:03)
[2020-06-23] MEDS: INSULIN LISPRO 100 UNIT/ML SUBCUT SCH ×2 (16:21→20:31)
[2020-06-23] MEDS: carvediloL 12.5 MG TABLET PO SCH (20:31)
[2020-06-23] MEDS ORDERED: ATORVASTATIN 20 MG TABLET PO SCH (21:00)
[2020-06-24] MEDS: ALBUTEROL/IPRATROPIUM 3 ML NEB RESP TX SCH ×3 (02:52→14:26)
[2020-06-24 05:29] LABS: Osmolality,Calculated 284.1 MOS/KG (273-304); Potassium 4.8 MMOL/L (3.5-5.1)
[2020-06-24 05:34] LABS: Basophils % 0.5 % (0.0-0.8); Eosinophils # 0.2 10*3/uL (0.0-0.87); Hematocrit 31.2 VOL% (35.7-47.0); Immature Granulocytes % 0.3 %; Immature Granulocytes Absolute 0.03 #; Lymphocytes # 1.6 10*3/uL (1.4-4.0); Lymphocytes % 18.6 % (21.3-54.2); Mean Corpuscular HGB Conc 30.8 GM/DL (32-36); Monocytes % 10.3 % (1.7-12.7); Neutrophils % 68.3 % (38.7-73.9); Red Blood Count 4.46 MC/CUMM (3.8-5.5); Red Cell Distribution Width 18.3 % (9.3-17.3)
[2020-06-24 05:36] LABS: Hemoglobin 9.6 GM/DL (12.0-16.0); Platelet Count 244 T/CUMM (130-400); White Blood Count 8.8 T/CUMM (4-12)
[2020-06-24 05:41] LABS: Hypochromasia 1+; Microcytosis 1+; Platelet Estimate Adequate
[2020-06-24] MEDS: INSULIN LISPRO 100 UNIT/ML SUBCUT SCH ×2 (08:56→12:19)
[2020-06-24] MEDS ORDERED: amLODIPine 5 MG TABLET PO SCH (09:00)
[2020-06-24] MEDS ORDERED: ISOSORBIDE MONONITRATE 30 MG TABLET PO SCH (09:00)
[2020-06-24 12:23] VITALS: BP 177/74
[2020-06-24] MEDS: carvediloL 12.5 MG TABLET PO SCH (12:24)
[2020-06-25] MEDS ORDERED: LEVOFLOXACIN INJ 500 MG in PREMIX 1 EACH IV SCH (06:00)
== END 2020-06-24 15:27 | disposition home or self-care (01) | DRG 193 ==
LOC: EDUNIT# → EDBD → N.ED 03:42 → INTOOBSV 05:17 → N.EDINP 05:17 → SUATTDRO 05:17 → OBSVTOIN 05:17 → N.TELEN 05:58
PROVIDERS: ADMIT Internal Medicine; ATTEND Internal Medicine